=== PATIENT | male | born 1950 | race Caucasian/White ===

== ENCOUNTER → 2017-05-06 | Outpatient (CLI) | payer BC, OTHER ==
[~2017-05-06] MED LIST: ALPR-411 PO; ATOR-24 PO; CHOL20007 PO; DICL1GEL12 TOP; ESCI10TA17 PO; MAGN400T6 PO; MELO7.5T5 PO; METO25TA3 PO; PANT40TA PO; PLV75 PO; TRAM-10 PO
== END | disposition home or self-care (01) ==
LOC: C.PATHSPEC 17:10
PROVIDERS: ATTEND Urology
DX: R31.0 Gross hematuria (principal)

== ENCOUNTER → 2017-06-07 | Outpatient (CLI) | payer BC, OTHER ==
--- NOTE | 2017-06-07 10:17 | DIAGNOSTIC IMAGING REPORT ---
ULTRASOUND KIDNEYS AND BLADDER CLINICAL HISTORY: Gross hematuria. COMPARISON STUDY: No priors. TECHNIQUE: Real-time, grayscale, and color flow sonography of the kidneys and bladder is performed. Images are reviewed in the transverse and longitudinal planes. FINDINGS: Kidneys: The kidneys are normal in size and echotexture. The right kidney measures 11.6 x 5.2 x 4.9 cm and the left kidney measures 11.5 x 5.9 x 5.8 cm. There is no hydronephrosis. A 5 mm shadowing calculus is suggested in the lower pole of the left kidney. Subcentimeter parapelvic cysts are suggested in the left. There is no sonographic evidence of contour deforming renal mass lesion. No perinephric fluid is identified. Bladder: There is a questionable 8 mm nonmobile nodular focus along the posterior left wall of the bladder. Both ureteral jets were seen. Upper abdomen: Survey images of the liver show evidence of hepatic steatosis. IMPRESSION: 1. The kidneys are normal in size and without hydronephrosis. 2. Suspect a nonobstructing left renal calculus. 3. There is an 8 mm nonmobile nodular structure along the left posterior wall of the bladder. This is of indeterminant etiology and a small parenchymal lesion is not excluded. Follow-up with cystoscopy is recommended for further assessment. Electronically signed by: Jimy Steel M.D. 06/07/2017 10:16 AM Dictated Date/Time: 06/07/2017 10:12 AM
== END | disposition home or self-care (01) ==
LOC: C.ULTRBC 09:13
PROVIDERS: ATTEND Urology
DX: R31.0 Gross hematuria (principal); R93.41 Abnormal radiologic findings on diagnostic imaging of renal pelvis, ureter, or bladder

== ENCOUNTER 2017-10-01 05:27 | Inpatient (IN) | payer OTHER ==
[2017-09-09 11:44] VITALS: Ht 180.3 cm; Wt 100.9 kg
--- NOTE | 2017-09-09 12:23 | PAT Medication Instructions ---
Service Date Sep 09, 2017. Current Home Medication List Alprazolam (Xanax), 0.5 MG PO HS Atorvastatin (Lipitor), 40 MG PO HS Cholecalciferol (Vitamin D3), 4,000 INTERUNIT PO QAM Clopidogrel Bisulfate (Clopidogrel), 1 TAB PO QAM Diclofenac Sodium (Topical) (Voltaren 1% Top Gel), 1 DOSE TOP UD Escitalopram (Lexapro), 10 MG PO HS Magnesium Oxide (Mag-Ox), 400 MG PO QAM Meloxicam (Mobic), 15 MG PO QAM Metoprolol Succ (Toprol Xl) (Toprol-Xl), 12.5 MG PO QAM Pantoprazole (Protonix), 40 MG PO QAM Tramadol (Ultram), 50 MG PO UD PRN for Pain Medication Instructions For Your Scheduled Surgery - Check with surgeon for instructions: Meloxicam (Mobic), 15 MG PO QAM - Check with surgeon and vending machine operator for instructions: Clopidogrel Bisulfate (Clopidogrel), 1 TAB PO QAM - Hold the following medications 24 hours prior to surgery: Diclofenac Sodium (Topical) (Voltaren 1% Top Gel), 1 DOSE TOP UD - Hold the following medications the morning of surgery: Cholecalciferol (Vitamin D3), 4,000 INTERUNIT PO QAM Magnesium Oxide (Mag-Ox), 400 MG PO QAM - Take the following medications the morning of surgery with a sip of water: Pantoprazole (Protonix), 40 MG PO QAM Tramadol (Ultram), 50 MG PO UD PRN for Pain (okay to take up to 4 hours prior to surgery if needed) Metoprolol Succ (Toprol Xl) (Toprol-Xl), 12.5 MG PO QAM - Take the following medications as scheduled the night before surgery: Tramadol (Ultram), 50 MG PO UD PRN for Pain (if needed) Escitalopram (Lexapro), 10 MG PO HS Alprazolam (Xanax), 0.5 MG PO HS Atorvastatin (Lipitor), 40 MG PO HS If you have any questions please call us at [phone] or [phone] or [phone]
[2017-09-09 12:54] LABS: BASO % 0.2 %; BASO ABS # 0.01 K/uL (0-0.2); EOS % 3.2 %; EOS ABS # 0.17 K/uL (0-0.5); HEMATOCRIT 45.5 % (42-52); HEMOGLOBIN 16.3 g/dL (14.0-18.0); LYMPH % 23.1 %; LYMPH ABS # 1.22 K/uL (1.2-3.4); MEAN CORPUSCULAR HEMOGLOBIN 34.8 pg (25-34); MEAN CORPUSCULAR HGB CONC 35.8 g/dl (32-36); MEAN PLATELET VOLUME 11.4 fL (7.4-10.4); MONO % 12.7 %; MONO ABS # 0.67 K/uL (0.11-0.59); NEUT % 60.8 %; PLATELET COUNT 169 K/uL (130-400); RED CELL DISTRIBUTION WIDTH CV 12.1 % (11.5-14.5); RED CELL DISTRIBUTION WIDTH SD 42.6 fL (36.4-46.3); WHITE BLOOD COUNT 5.27 K/uL (4.8-10.8)
[2017-09-09 13:08] LABS: INR 1.1 (0.9-1.1); PTT PATIENT 27.2 SECONDS (21.0-31.0)
[2017-09-09 13:20] LABS: HEMOGLOBIN A1C 5.4 % (4.5-5.6)
[2017-09-09 14:31] LABS: ALBUMIN 3.7 gm/dl (3.4-5.0); CALCIUM 8.8 mg/dl (8.5-10.1); CREATININE 1.04 mg/dl (0.60-1.40); POTASSIUM 4.2 mmol/L (3.5-5.1)
--- NOTE | 2017-09-29 10:59 | History and Physical ---
History & Physical Date Sep 29, 2017. Chief Complaint right ankle pain History of Present Illness The patient is a 66 year old male with complaints of right ankle pain for multiple years and had been treated conservatively for ankle osteoarthritis. He has failed all conservative management and is now being set up for a right ankle replacement. Past Medical/Surgical History PMH: HTN, hypercholesterolemia, sleep apnea, anxiety, hx of cardiac stent in 2003/2014, hemochromatosis, BPH, Hiatal hernia, Hx of bladder CA Social Hx: Previous smoker quit in 1973. Surgical Hx: cardiac cath, bladder surgery Allergies Coded Allergies: Aspirin (Verified Allergy, Unknown, HIVES, 09/09/17) Ibuprofen (Verified Allergy, Unknown, HIVES, 09/09/17) Penicillins (Verified Allergy, Unknown, HIVES, 09/09/17) Home Medications Scheduled Alprazolam (Xanax), 0.5 MG PO HS Atorvastatin (Lipitor), 40 MG PO HS Cholecalciferol (Vitamin D3), 4,000 INTERUNIT PO QAM Clopidogrel Bisulfate (Clopidogrel), 1 TAB PO QAM Diclofenac Sodium (Topical) (Voltaren 1% Top Gel), 1 DOSE TOP UD Escitalopram (Lexapro), 10 MG PO HS Magnesium Oxide (Mag-Ox), 400 MG PO QAM Meloxicam (Mobic), 15 MG PO QAM Metoprolol Succ (Toprol Xl) (Toprol-Xl), 12.5 MG PO QAM Pantoprazole (Protonix), 40 MG PO QAM Scheduled PRN Tramadol (Ultram), 50 MG PO UD PRN for Pain Physical Examination Skin: warm/dry, no rash Eyes: normal inspection ENT: normal ENT inspection, pharynx normal Head: normocephalic, atraumatic Neck: supple, no adenopathy, trachea midline Respiratory/Chest: lungs clear, normal breath sounds, no respiratory distress Cardiovascular: regular rate, rhythm Abdomen / GI: normal bowel sounds, non tender Extremities: + pertinent finding (right ankle: antalgic right gait. + swelling of the ankle joint. Crepitation and pain with PROM. Limited ROM, particularly dorsiflexion. Decreased strength in all directions.) Neurologic/Psych: no motor/sensory deficits, alert, oriented x 3 Diagnosis Right ankle osteoarthritis Right ankle achilles contracture Plan of Treatment Recommend a right ankle STAR total ankle replacement, percutaneous tendoachilles lengthening, application platelet rich plasma. All potential risks, benefits, complications, alternatives, and rehab have been discussed and the patient wishes to proceed. He will be scheduled for 10.01.17.
[2017-10-01] VITALS (8 sets, daily range): BP systolic 103–136; BP diastolic 63–81; PULSE 56–89; TEMP 36.3–36.8; O2SAT 93–99
[~2017-10-01] VITALS: Ht 180.3 cm; Wt 100.9 kg
[2017-10-01] MEDS ORDERED: LACTATED RINGER'S 1000ML IV SCH (06:00)
[2017-10-01] MEDS ORDERED: LACTATED RINGER'S 1000ML 1,000 ML IV SCH (06:00)
[2017-10-01] MEDS ORDERED: METOCLOPRAMIDE HCL 10 MG TAB PO SCH (06:00)
[2017-10-01] MEDS ORDERED: VANCOMYCIN INJ 1,500 MG in SODIUM CHLORIDE 0.9% 500ML 500 ML IV SCH (06:00)
[2017-10-01] MEDS ORDERED: ACETAMINOPHEN 500 MG TAB PO SCH (06:00)
[2017-10-01] MEDS ORDERED: GABAPENTIN 300 MG CAP PO SCH (06:00)
[2017-10-01] MEDS ORDERED: ROPIVACAINE 5MG/ML 30 ML 150 MG, BUPIVACAINE 0.5% MPF INJ 30 ML, EpINEphrine HCL INJ 0.... INFIL SCH ×23 (06:00→09:00)
[2017-10-01] MEDS ORDERED: FAMOTIDINE 20 MG TAB PO SCH (06:00)
[2017-10-01] MEDS ORDERED: DEXAMETHASONE 4 MG TAB PO SCH (06:00)
[2017-10-01] MEDS ORDERED: CeleBREX 200 MG CAP PO SCH (06:00)
[2017-10-01] MEDS ORDERED: ROPIVACAINE 0.5% 5 MG/ML 30 ML VIAL ONE (06:22)
[2017-10-01] MEDS: TRANEXAMIC ACID INJ 1,000 MG in SYRINGE 0 ML IV SCH ×2 (06:30→07:36)
[2017-10-01] MEDS ORDERED: LIDOCAINE HCL 2% 2 ML VIAL (20MG/ML) ONE (06:51)
[2017-10-01] MEDS ORDERED: FENTANYL CITRATE INJ 50 MCG/1 ML 2 ML VIAL ONE ×2 (06:51→09:39)
[2017-10-01] MEDS ORDERED: PROPOFOL IV EMULSION 10 MG/ML 20 ML VIAL IV ONE (06:51)
[2017-10-01] MEDS ORDERED: MIDAZOLAM HCL 1 MG/ML 2ML VIAL ONE (06:51)
[2017-10-01] MEDS ORDERED: ONDANSETRON INJ 2 MG/ML 2 ML VIAL ONE ×2 (06:51→09:05)
[2017-10-01] MEDS ORDERED: DEXAMETHASONE SOD INJ 4 MG/ML VIAL ONE (06:51)
[2017-10-01] MEDS ORDERED: BACITRACIN 50000 UNIT VIAL ONE (07:08)
--- NOTE | 2017-10-01 07:48 | History & Physical Bridge Note ---
H&P Re-Evaluation Bridge Note: I have examined the patient, reviewed the History & Physical and in the interval since the performance of the History & Physical I have noted the following changes of clinical significance: No changes noted
[2017-10-01] MEDS ORDERED: EpHEDrine SULFATE 50MG/5ML SYR ONE (08:17)
[2017-10-01] MEDS ORDERED: CALCIUM CHLORIDE 10% 10 ML SYR ONE (08:47)
[2017-10-01] MEDS ORDERED: THROMBIN 5000 UNITS KIT ONE (09:04)
[2017-10-01] MEDS ORDERED: SODIUM CHLORIDE 0.9% INJ 10 ML VIAL ONE (09:07)
[2017-10-01] MEDS ORDERED: DexMEDEtomidine HCL IV 100 MCG/ML VIAL IV ONE (09:15)
[2017-10-01] MEDS ORDERED: HYDROmorphone INJ 0.5 MG/0.5 ML SYR IV PRN (09:30)
[2017-10-01] MEDS ORDERED: ATROPINE SULFATE 0.1 MG/ML 5ML SYR IV PRN (09:30)
[2017-10-01] MEDS ORDERED: PHENYLEPHRINE 100MCG/ML 5ML SYR IV PRN (09:30)
[2017-10-01] MEDS ORDERED: EpHEDrine SULFATE INJ 50 MG/ML AMP IV PRN (09:30)
[2017-10-01] MEDS ORDERED: ONDANSETRON INJ 2 MG/ML 2 ML VIAL IV PRN ×2 (09:30→11:00)
--- NOTE | 2017-10-01 10:32 | [facility] Post Operative Brief Note ---
Immediate Operative Summary Operative Date Oct 01, 2017. Pre-Operative Diagnosis Right Degenerative Joint Disease, Ankle osteoarthritis, Achilles Contracture Post-Operative Diagnosis Right Degenerative Joint Disease, Ankle osteoarthritis, Achilles Contracture Procedure(s) Performed 1. Right STAR Total Ankle Arthroplasty 2. Percutaneous Achilles Lengthening, 3. Application of Platelet-Rich Plasma Concentrate Surgeon Dr. Alarcon Desk Attendant Surgeon(s) OPHELIA Monk Estimated Blood Loss 5 ml Findings Consistent with Post-Op Diagnosis Specimens A) Right ankle- bone and tissue Drains HV x 1 Anesthesia Type General Regional Complication(s) none Disposition Disposition: Recovery Room / PACU
[2017-10-01] MEDS ORDERED: ESMOLOL HCL 10 MG/ML 10 ML VIAL ONE (10:34)
[2017-10-01] MEDS ORDERED: ZOLPIDEM TARTRATE 5 MG TAB PO PRN (11:00)
[2017-10-01] MEDS ORDERED: VANCOMYCIN CONSULT ACTIVE PRN (11:00)
[2017-10-01] MEDS: DICLOFENAC SOD 1% GEL 100 GM TUBE EXT SCH (11:00)
[2017-10-01] MEDS ORDERED: ALUMINUM/MAGNESIUM/SIMETH (MAALOX MAX) 30 ML UDC PO PRN (11:00)
[2017-10-01] MEDS ORDERED: SOD PHOSPHATE/SOD BIPHOSPHATE ENEMA 132 ML BTL PR PRN (11:00)
[2017-10-01] MEDS ORDERED: MoRPHine SULFATE 2 MG/ML CARP IV PRN (11:00)
[2017-10-01] MEDS ORDERED: BISACODYL 10 MG SUPP PR PRN (11:00)
[2017-10-01] MEDS ORDERED: MAGNESIUM HYDROXIDE SUSP 30 ML UDC PO PRN (11:00)
--- NOTE | 2017-10-01 11:03 | DIAGNOSTIC IMAGING REPORT ---
INTRAOPERATIVE RADIOGRAPHS CLINICAL HISTORY: Right ankle arthroplasty. Fluoroscopy time: 149 seconds. FINDINGS: 2 spot fluoroscopic views of the right ankle are correlated with ankle radiographs dated 02/08/2006. The patient is status post right ankle arthroplasty. The orthopedic hardware appears intact. No evidence of acute fracture is seen. Overlying soft tissue edema is noted. IMPRESSION: Intraoperative images from a right ankle arthroplasty procedure as above. Electronically signed by: Jimy Steel M.D. 10/01/2017 11:01 AM Dictated Date/Time: 10/01/2017 11:00 AM
--- NOTE | 2017-10-01 11:08 | OPERATIVE REPORT ---
DATE OF OPERATION: 10/01/2017 PREOPERATIVE DIAGNOSES: 1. Right ankle degenerative joint disease. 2. Right ankle osteoarthritis. 3. Achilles contracture. POSTOPERATIVE DIAGNOSES: Same. PROCEDURE: 1. Right press-fit STAR total ankle replacement using a size large talar component, a size extra large tibial component and a 10 mm polyethylene component. 2. Percutaneous tendon Achilles lengthening. 3. Application of platelet rich plasma concentrate. SURGEON: Dr. Alarcon. STUFFER: Coleman Capellan PA-C who was present for patient positioning, sterile prep and drape, management of retractors and instruments. He was present through the critical portions of the case including wound closure, application of sterile dressing and transport of the patient to recovery. ANESTHESIA: General with regional and local intra-articular injection. SPECIMENS: Bone and tissue. DRAINS: Hemovac x1. COMPLICATIONS: None. BLOOD LOSS: 5 mL. PERTINENT HISTORY: This is a 66-year-old gentleman who has had chronic progressive and ongoing debilitating pain and worsening deformity of the right ankle. He had attempted and failed conservative management including shoewear modification, activity modification and use of a brace, anti-inflammatories local steroid injections, physical therapy physician directed home exercises and lifestyle modification. He had failed all measures and was then scheduled for surgery as indicated. Radiographs demonstrate complete loss of joint space, marginal osteophytes, subchondral sclerosis and subchondral cysts. All potential risks, benefits, complications, alternatives, rehab, potential for incomplete relief of symptoms, need for further surgery, DVT, PE, , persistent pain, swelling, scarring, weakness, neurovascular injury, wound complications, hardware failure, nonunion, malunion and bone fracture were discussed with the patient. The patient decided to proceed with the procedure as indicated. DESCRIPTION OF PROCEDURE: The patient was taken to the operative suite after popliteal block was administered. The patient was placed supine on the operating room table. Tourniquet was applied over the right lower extremity. After the patient was anesthetized, LMA was placed. The right lower extremity was then sterilely prepped and draped in the usual sterile fashion [id number], elevated and exsanguinated with an Esmarch bandage, and tourniquet inflated to 325 mmHg. Next, an 11-blade scalpel was then used to make 3 percutaneous incisions in the posterior aspect of the Achilles and a fractional percutaneous lengthening was then achieved with the foot held in neutral dorsiflexion. Small percutaneous incisions were then closed using skin maria del rosario. A #15 blade scalpel was used to make an anterior midline ankle incision extending to the midfoot oriented toward the 2nd metatarsal. The incision was made lateral to the tibialis anterior and centered over the extensor hallucis longus tendon. The incision was deepened through subcutaneous tissue. Meticulous hemostasis was achieved with electrocautery. Full-thickness skin flaps were developed. Superficial peroneal nerve was identified, retracted, and protected. Next, the extensor retinaculum was incised along the skin incision to the lateral aspect of the tibialis anterior. Tibialis anterior was retracted medially. The extensor hallucis longus and the neurovascular bundle beneath were retracted laterally. The small crossing vessels were cauterized. The anterior capsule was then incised in its midline and then elevated medially and laterally with electrocautery. Appropriate soft tissue retractors were placed carefully to maintain essentially zero skin tension on the superficial skin. After the capsule was elevated and retracted medially and laterally to visualize the medial and lateral malleoli clearly, rongeur was used to perform synovectomy and remove any excess debris and loose bodies. Next, the wound was irrigated and suctioned. Good visualization was obtained. At this point the anterior lip of hypertrophic bone was resected from the tibia with an osteotome and mallet followed by resection of a small osteophyte medially at the medial malleolus. Next, the tibial plafond could be clearly visualized. The neck of the talus was then rongeured down to the true neck of the talus after all hypertrophic osteophytes were excised. Next, attention was directed toward the proximal tibia at which point a 15-blade scalpel incision was made anterior of the tibial tubercle the inferior aspect using the external alignment guide as a guide for pin placement which was essentially in the midline of the tibia with a slight degree of dorsiflexion. Guide was placed anteriorly using a small osteotome in the medial gutter of the ankle joint to dye reel operator helper in alignment. Next, the small 2.4 mm pin was placed adjacent to the tibial tubercle and the alignment guide was placed approximately one fingerbreadth above the soft tissue and fastened there at approximately four notches medialized proximally. Next, the T-handle guide was placed anteriorly and then this was aligned with the small osteotome and placed in the medial gutter of the ankle joint to make this parallel and then also the orientation of the second ray of the foot was used to guide as well. Next, the more proximal alignment block was pinned unicortically followed by placement of the lateral alignment guide on the tibial alignment jig and the T-handle was removed. Distal cutting block was then fastened to the distal aspect of the tibial alignment guide and then x-rays obtained in AP and lateral projections of the ankle and tibia assuring appropriate alignment of the tibial alignment guide and the tibial cutting block. After appropriate alignment was established, the distal cutting block was then pinned in place with two 2.4 mm pins, one in the proximal and then secondarily in the distal aspect of the tibial cutting guide and the tibial cutting guide was aligned at the inferior aspect at the level of the tibial plafond. Next, after the tibial cutting blocks were aligned and confirmed, the medial and lateral saw capture pins were placed followed by resection of the distal tibia with a sagittal saw. The pins were removed and the distal cutting guide was then removed followed by removal of the distal tibial cut fragment after it was morselized with a small osteotome and resected with a rongeur. A cervical lamina torque tester was placed in the ankle joint to open the ankle joint followed by resection of the posterior fragments from the distal tibia cut. Next, the talar cutting guide paddle was placed at the distal tibial cutting guide and fastened in place. The ankle was held in neutral dorsiflexion. Four pins were placed in the talar cutting block fixing the talus in appropriate alignment. Next, after the saw capture pins were placed, the sagittal saw was used to resect the superior aspect of the talus. The talar cutting block guide was then removed as well as the pins and talus. This was then followed by placement of datum guide which was initially placed as an extra small position with regard to position on the talus as well as orientation along the second ray. Central pin was placed and then the posterior capture cutting guide was attached and the anterior milling guide was also fastened with two football screws. Next, the anterior mill was used to resect the anterior aspect of the talar dome. Posterior cut was made. This jig was then removed followed by placement of the shoulder cutting guide and the reciprocating saw was just resect the shoulder portions of the talus using the laser cut line. This guide was then removed leaving the central pin followed by resection of the fragments using a small osteotome and mallet. This was then elevated and resected. Next, the window trial was firmly affixed to the superior aspect of the talus using fluoroscopic confirmation of alignment and position. Next, the central keel was drilled. The window trial was then removed following use of the central keel punch. This was also confirmed using fluoroscopic social science research assistant. The wound was copiously irrigated with pulsatile lavage with Bacitracin additive followed by suctioning of the talar component. Platelet-rich plasma was injected at this time at the undersurface of the implant as well as in the talar dome. The final talar component was impacted in place with fluoroscopic assistance. Next, a trial polyethylene 10 mm was placed in the joint and the posterior aspect of the tibia was measured both medially and laterally. Appropriate size tibial drill guide was then placed and fastened with two pins. This was confirmed with x-ray and then the barrel drills x 2 were performed making certain to aim proximally. Next, the barrel cutting jig was then used to perform the final punch medially and laterally. The trial plate was then removed after appropriate sized polyethylene was sized. Next, the joint was copiously irrigated with pulsatile lavage followed by suctioning of all surfaces. The tibia was then injected with platelet-rich plasma as well as the superior aspect of the tibial final plate implant. This was then impacted in place with the trial polyethylene liner in place to ensure adequate positioning. Next, the final impactor was used to seat the tibial base tray flush with the anterior aspect of the tibia followed by bone grafting of the anterior barrel holes with local bone graft. This was impacted in place with a mallet and bone tamp. This then followed by confirmation with C-arm and then final polyethylene was inserted without difficulty. Excellent range of motion and stability was obtained. No liftoff was noted. The platelet-rich plasma was then sprayed within the joint and all surfaces and also into the subcutaneous tissue and deep soft tissue. A 10-Slovenian single-lumen Hemovac drain was placed anterolaterally followed by closure of the ankle joint capsule with #1 Vicryl. The extensor retinaculum was closed using interrupted 2-0 Vicryl, the dermis closed buried 3-0 Vicryl, and skin was closed using 3-0 monocryl. A sterile compressive bulky Fito Maya plaster splint was applied overwrapped with an Blaise wrap. Tourniquet was released. The patient was awakened and taken to recovery in stable condition. I attest to the content of the Intraoperative Record and any orders documented therein. Any exceptions are noted below. CHANNING
[2017-10-01] MEDS ORDERED: RXC5 PO (11:18)
[2017-10-01] MEDS ORDERED: ONDA8TAB6 PO (11:18)
--- NOTE | 2017-10-01 11:19 | Discharge Instructions ---
Discharge Instructions Date of Service Oct 01, 2017. Admission Reason for Admission: Right Ankle Osteoarthritis Discharge Discharge Diagnosis / Problem: right ankle osteoarthritis Discharge Goals Goal(s): Decrease discomfort, Improve function Activity Recommendations Activity Limitations: per Instructions/Follow-up section Weightbearing Status: Right non-weightbearing . Instructions / Follow-Up Instructions / Follow-Up ACTIVITY RECOMMENDATIONS: Limitations: No weight bearing to affected limb at all times. SPECIAL CARE INSTRUCTIONS: * Some drainage onto the dressing is normal and is no cause for alarm. * Some swelling is natural especially after walking. * When resting, keep your foot elevated above the level of your heart. * Call [facility] if you notice: -Increased drainage -Fever over 101 degrees F -Severe constant pain BANDAGE: * Leave bandage/cast in place unless otherwise directed. * Keep bandage/cast dry at all times. FOLLOW UP VISIT WITH DR. HUBER If appointment is not already scheduled: Please call [facility] after you get home today to schedule a follow-up appointment for [address] Huber at . Current Hospital Diet Patient's current hospital diet: AHA Diet (Heart Healthy) Discharge Diet Recommended Diet: AHA Diet (Heart Healthy) Procedures Procedures Performed: 1. Right STAR Total Ankle Arthroplasty 2. Percutaneous Achilles Lengthening, 3. Application of Platelet-Rich Plasma Concentrate Pending Studies Studies pending at discharge: no Laboratory Results Hemoglobin A1c Test 09/09/17 11:29 Range/Units Estimated Average Glucose 108 mg/dl Hemoglobin A1c 5.4 4.5-5.6 % Medical Emergencies . Who to Call and When: Medical Emergencies: If at any time you feel your situation is an emergency, please call 911 immediately. . Non-Emergent Contact Non-Emergency issues call your: Surgeon Call Non-Emergent contact if: temperature is above 101, your pain is not controlled, your pain is worsening . "Provider Documentation" section prepared by Coleman Capellan. . VTE Core Measure Inpt VTE Proph given/why not?: Other Anticoagulation (Plavix), T.E.D. Stockings , SCD's
--- NOTE | 2017-10-01 11:55 | DIAGNOSTIC IMAGING REPORT ---
R ANKLE MIN 3 VIEWS ROUTINE CLINICAL HISTORY: Postoperative evaluation. COMPARISON: Right ankle radiographs February 08, 2006 and fluoroscopic images from earlier today. FINDINGS: Alignment of the tibiotalar arthroplasty is anatomic. Hardware is intact. Fine detail is obscured by overlying cast. Skin maria del rosario project posterior to the Achilles. Surgical drain is noted. There are no unexpected radiopaque foreign bodies. Lucencies within the distal right tibia is from previous hardware. IMPRESSION: Expected findings following right tibiotalar joint arthroplasty. Electronically signed by: Michael Chadwcik M.D. 10/01/2017 11:54 AM Dictated Date/Time: 10/01/2017 11:34 AM
--- NOTE | 2017-10-01 12:36 | Anesthesiology Progress Note ---
Anesthesia Post Op Note Date & Time Oct 01, 2017 at 12:36 Vital Signs Pain Intensity: 0 Vital Signs Past 12 Hours Date Time Temp Pulse Resp B/P (MAP) Pulse Ox O2 Delivery O2 Flow Rate FiO2 10/01/17 12:01 110/84 10/01/17 11:58 84 12 95 10/01/17 11:58 84 12 10/01/17 11:56 121/79 10/01/17 11:53 85 13 96 10/01/17 11:53 84 13 10/01/17 11:51 143/84 10/01/17 11:48 80 12 10/01/17 11:48 79 12 98 10/01/17 11:46 113/76 10/01/17 11:44 36.5 10/01/17 11:43 78 12 10/01/17 11:43 79 12 97 10/01/17 11:41 117/71 10/01/17 11:38 76 13 10/01/17 11:38 76 13 99 10/01/17 11:37 75 12 10/01/17 11:37 76 12 97 10/01/17 11:36 110/73 10/01/17 11:32 76 15 10/01/17 11:32 77 15 100 10/01/17 11:31 117/69 10/01/17 11:27 80 13 10/01/17 11:27 80 13 98 10/01/17 11:26 106/69 10/01/17 11:25 77 15 10/01/17 11:25 77 15 98 10/01/17 11:21 116/67 10/01/17 11:20 77 14 10/01/17 11:20 77 14 100 10/01/17 11:16 111/69 10/01/17 11:15 76 12 94 10/01/17 11:15 76 12 10/01/17 11:11 113/72 10/01/17 11:10 74 18 93 10/01/17 11:10 75 18 10/01/17 11:06 115/69 10/01/17 11:05 72 14 95 10/01/17 11:05 74 14 10/01/17 11:01 115/72 10/01/17 11:00 36.0 74 18 115/72 96 Nasal Cannula 10/01/17 06:04 36.7 56 18 115/81 96 Room Air Notes Mental Status: alert / awake / arousable, participated in evaluation Pt Amnestic to Procedure: Yes Nausea / Vomiting: adequately controlled Pain: adequately controlled Airway Patency, RR, SpO2: stable & adequate BP & HR: stable & adequate Hydration State: stable & adequate Anesthetic Complications: no major complications apparent
[2017-10-01] MEDS: ACETAMINOPHEN 500 MG TAB PO SCH ×2 (14:16→21:05)
[2017-10-01] MEDS: D5W AND 1/2NSS + 20MEQ KCL 1,000 ML IV SCH (14:16)
--- NOTE | 2017-10-01 15:03 | Medical Consult ---
Consultation Date of Consultation: Oct 01, 2017. Attending Physician: Easton Alarcon D.O. Reason for Consultation: Medical Management History of Present Illness 66 y/o M who was admitted earlier today s/p R total ankle and Achilles lengthening with Dr. Alarcon. He is doing well post-op. His nerve block has not worn off yet and he has no pain at this point. He is off of O2 and no SOB. No chest pain. He had lunch and no issues with PO. Pt denies fever, abd pain , n/v/c/d, LE swelling. Ortho H&P lists MARISEL as a dx. When asked about this dx or CPAP use, pt states he just assumes that he has this but has never been tested and does not have any tx plan. He states that he snores and has done so for some time. He snores so much that his no longer sleeps in the same room as he does. Past Medical/Surgical History HTN Hyperlipidemia Hx of multiple stents x3, 2004, 2015 Hemochromatosis BPH Hx of bladder ca Hiatal hernia Anxiety Social History Smoking Status: Former Smoker Alcohol Use: none Drug Use: none Allergies Coded Allergies: Aspirin (Verified Allergy, Unknown, HIVES, 10/01/17) Ibuprofen (Verified Allergy, Unknown, HIVES, 10/01/17) Penicillins (Verified Allergy, Unknown, HIVES, 10/01/17) Current Inpatient Medications Current Inpatient Medications Medications (Trade) Dose Ordered Sig/Zoraida Route Start Time Stop Time Status Last Admin Dose Admin Lactated Ringer's 1,000 ml @ 15 mls/hr Q24H IV 10/01/17 06:00 10/02/17 05:59 Vancomycin HCl 1500 mg/Sodium Chloride 530 ml @ 200 mls/hr PREOP IV 10/01/17 06:00 10/02/17 05:59 10/01/17 05:57 200 MLS/HR Lactated Ringer's 1,000 ml @ 60 mls/hr [id number] IV 10/01/17 06:00 10/01/17 22:39 10/01/17 06:13 60 MLS/HR Acetaminophen (Tylenol Tab) 1,000 mg PREOP PO 10/01/17 06:00 10/01/17 18:00 10/01/17 06:13 1,000 MG Dexamethasone (Decadron Tab) 8 mg PREOP PO 10/01/17 06:00 10/01/17 18:00 10/01/17 06:14 8 MG Famotidine (Pepcid Tab) 20 mg PREOP PO 10/01/17 06:00 10/01/17 18:00 10/01/17 06:14 20 MG Gabapentin (Neurontin Cap) 300 mg PREOP PO 10/01/17 06:00 10/01/17 18:00 10/01/17 06:13 300 MG Metoclopramide HCl (Reglan Tab) 10 mg PREOP PO 10/01/17 06:00 10/01/17 18:00 10/01/17 06:13 10 MG Ropivacaine 150 mg/Bupivacaine HCl 30 ml/ Epinephrine HCl 0.15 mg/ Dexamethasone Sodium Phosphate 4 mg/Ketamine HCl 10 mg/Clonidine 100 mcg/Sodium Chloride 92.35 ml @ 0 mls/hr 0900 INFIL 10/01/17 09:00 10/01/17 18:00 10/01/17 10:30 20 MLS/HR Alprazolam (Xanax Tab) 0.5 mg HS PO 10/01/17 21:00 10/31/17 20:59 Atorvastatin Calcium (Lipitor Tab) 40 mg HS PO 10/01/17 21:00 10/31/17 20:59 Clopidogrel Bisulfate (plAVix TAB) 75 mg QAM PO 10/02/17 09:00 11/01/17 08:59 Diclofenac Sodium (Voltaren 1% Top Gel) 1 appln DAILY EXT 10/01/17 11:00 10/31/17 10:59 Escitalopram Oxalate (Lexapro Tab) 10 mg HS PO 10/01/17 21:00 10/31/17 20:59 Magnesium Oxide (Mag-Ox Tab) 400 mg QAM PO 10/02/17 09:00 11/01/17 08:59 Metoprolol Succinate (Toprol Xl Tab) 12.5 mg QAM PO 10/02/17 09:00 11/01/17 08:59 Pantoprazole Sodium (Protonix Tab) 40 mg QAM PO 10/02/17 09:00 11/01/17 08:59 Cholecalciferol (Vitamin D Tab) 4,000 inter.unit QAM PO 10/02/17 09:00 11/01/17 08:59 Potassium Chloride/Dextrose/ Sod Cl 1,000 ml @ 100 mls/hr Q10H IV 10/01/17 13:00 10/31/17 12:59 10/01/17 14:16 100 MLS/HR Vancomycin HCl 1500 mg/Sodium Chloride 530 ml @ 200 mls/hr 1800 ONCE IV 10/01/17 18:00 10/01/17 20:38 Oxycodone HCl (Roxicodone Immediate Rel Tab) 1-2 TABS FOR PAIN 1 TABLET ... Q4H PRN PO 10/01/17 11:00 10/15/17 10:59 Morphine Sulfate (MoRPHine SULFATE INJ) 2 mg Q1HWA PRN IV 10/01/17 11:00 10/15/17 10:59 Acetaminophen (Tylenol Tab) 1,000 mg Q8H PO 10/01/17 14:00 10/31/17 13:59 10/01/17 14:16 1,000 MG Magnesium Hydroxide (Milk Of Magnesia Susp) 30 ml Q6H PRN PO 10/01/17 11:00 10/31/17 10:59 Bisacodyl (Dulcolax Supp) 10 mg DAILY PRN [place] 10/01/17 11:00 10/31/17 10:59 Sodium Biphosphate/ Sodium Phosphate (Fleet Enema) 132 ml DAILY PRN IL 10/01/17 11:00 10/31/17 10:59 Senna (Senokot Tab) 17.2 mg HS PO 10/01/17 21:00 10/31/17 20:59 Docusate Sodium (coLACE CAP) 100 mg BID PO 10/01/17 21:00 10/31/17 20:59 Diphenhydramine HCl (Benadryl Cap) 25 mg Q8H PRN PO 10/01/17 11:00 10/31/17 10:59 Al Hydrox/Mg Hydrox/Simethicone (Maalox Max Susp) 15 ml Q4H PRN PO 10/01/17 11:00 10/31/17 10:59 Zolpidem Tartrate (Ambien Tab) 5 mg HSZ PRN PO 10/01/17 11:00 10/31/17 10:59 Multivitamins (Multivitamin Tab) 1 tab QAM PO 10/02/17 09:00 11/01/17 08:59 Ondansetron HCl (Zofran Inj) 4 mg Q6H PRN IV 10/01/17 11:00 10/31/17 10:59 Review of Systems Pertinent positives and negatives reviewed in HPI--all others negative Physical Exam Date Time Temp Pulse Resp B/P (MAP) Pulse Ox O2 Delivery O2 Flow Rate FiO2 10/01/17 14:15 77 16 134/64 (87) 98 10/01/17 13:24 84 16 126/70 (88) 97 10/01/17 12:45 80 16 136/76 (96) 99 Nasal Cannula 2.0 10/01/17 12:15 36.8 81 16 113/75 (88) 99 Nasal Cannula 2.0 10/01/17 12:15 99 Nasal Cannula 2.0 10/01/17 12:01 110/84 10/01/17 11:58 84 12 95 10/01/17 11:58 84 12 10/01/17 11:56 121/79 10/01/17 11:53 85 13 96 10/01/17 11:53 84 13 10/01/17 11:51 143/84 10/01/17 11:48 80 12 10/01/17 11:48 79 12 98 10/01/17 11:46 113/76 10/01/17 11:44 36.5 10/01/17 11:43 78 12 10/01/17 11:43 79 12 97 10/01/17 11:41 117/71 10/01/17 11:38 76 13 10/01/17 11:38 76 13 99 10/01/17 11:37 75 12 10/01/17 11:37 76 12 97 10/01/17 11:36 110/73 10/01/17 11:32 76 15 10/01/17 11:32 77 15 100 10/01/17 11:31 117/69 10/01/17 11:27 80 13 10/01/17 11:27 80 13 98 10/01/17 11:26 106/69 10/01/17 11:25 77 15 10/01/17 11:25 77 15 98 10/01/17 11:21 116/67 10/01/17 11:20 77 14 10/01/17 11:20 77 14 100 10/01/17 11:16 111/69 10/01/17 11:15 76 12 94 10/01/17 11:15 76 12 10/01/17 11:11 113/72 10/01/17 11:10 74 18 93 10/01/17 11:10 75 18 10/01/17 11:06 115/69 10/01/17 11:05 72 14 95 10/01/17 11:05 74 14 10/01/17 11:01 115/72 10/01/17 11:00 36.0 74 18 115/72 96 Nasal Cannula 10/01/17 06:04 36.7 56 18 115/81 96 Room Air General Appearance: WD/WN, no apparent distress Head: normocephalic, atraumatic Eyes: normal inspection, EOMI, sclerae normal Respiratory/Chest: lungs clear, normal breath sounds, no respiratory distress Cardiovascular: regular rate, rhythm, no edema Abdomen/GI: non tender, soft Extremities/Musculoskelatal: no calf tenderness, no pedal edema Neurologic/Psych: alert, normal mood/affect, oriented x 3 Skin: normal color, warm/dry, + pertinent finding (R ankle is wrapped, clean and dry) Laboratory Results Last 24 Hours Test 10/01/17 05:45 Assessment & Plan 66 y/o M who was admitted on 10/01 s/p R total ankle and Achilles lengthening with Dr. Alarcon. R total ankle: diet and DVT proph as per Dr. Alarcon Pre-op Hb 16.3 HTN, hx of stents: continue home meds Pt should resume plavix use once cleared to do so by ortho Anxiety: prn xanax MARISEL: no formal testing or dx made, however pt snores for many years and has hx of cardiac issues and HTN that could be stemming from untx MARISEL Overnight pulse ox Pt will need formal sleep study as an outpt most likely Additional Copies To Omega Jerez M.D.
[2017-10-01] MEDS ORDERED: VANCOMYCIN INJ 1,500 MG in SODIUM CHLORIDE 0.9% 500ML 500 ML IV ONE (18:00)
[2017-10-01] MEDS ORDERED: ESCITALOPRAM OXALATE 10 MG TAB PO SCH (21:00)
[2017-10-01] MEDS ORDERED: ALPRAZOLAM 0.5 MG TAB PO SCH (21:00)
[2017-10-01] MEDS ORDERED: ATORVASTATIN 20 MG TAB PO SCH (21:00)
[2017-10-01] MEDS ORDERED: SENNA 8.6 MG TAB PO SCH (21:00)
[2017-10-01] MEDS: DOCUSATE SODIUM 100 MG CAP PO SCH (21:04)
[2017-10-02] MEDS: OXYCODONE HCL IR 5 MG TAB (IMMEDIATE RELEASE) PO PRN ×3 (00:45→11:05)
[2017-10-02] MEDS: D5W AND 1/2NSS + 20MEQ KCL 1,000 ML IV SCH ×2 (00:46→08:45)
[2017-10-02 04:00] VITALS: BP 142/82; PULSE 84; TEMP 36.7; O2SAT 98
[2017-10-02 05:42] VITALS: O2SAT 93
[2017-10-02] MEDS: ACETAMINOPHEN 500 MG TAB PO SCH (05:57)
[2017-10-02 06:09] LABS: HEMATOCRIT 40.1 % (42-52); HEMOGLOBIN 14.1 g/dL (14.0-18.0); MEAN CELL VOLUME 96.9 fL (80-100); MEAN CORPUSCULAR HEMOGLOBIN 34.1 pg (25-34); MEAN CORPUSCULAR HGB CONC 35.2 g/dl (32-36); MEAN PLATELET VOLUME 10.9 fL (7.4-10.4); PLATELET COUNT 176 K/uL (130-400); RED CELL DISTRIBUTION WIDTH CV 12.2 % (11.5-14.5); RED CELL DISTRIBUTION WIDTH SD 43.1 fL (36.4-46.3); WHITE BLOOD COUNT 14.39 K/uL (4.8-10.8)
[2017-10-02 06:50] LABS: CALCIUM 8.3 mg/dl (8.5-10.1); CREATININE 1.04 mg/dl (0.60-1.40)
[2017-10-02 07:20] VITALS: BP 114/67; PULSE 98; TEMP 36.6; O2SAT 98
[2017-10-02] MEDS: DICLOFENAC SOD 1% GEL 100 GM TUBE EXT SCH (08:44)
[2017-10-02] MEDS: DOCUSATE SODIUM 100 MG CAP PO SCH (08:45)
[2017-10-02] MEDS ORDERED: CLOPIDOGREL BISULFATE 75 MG TAB PO SCH (09:00)
[2017-10-02] MEDS ORDERED: MAGNESIUM OXIDE 400 MG TAB PO SCH (09:00)
[2017-10-02] MEDS ORDERED: CHOLECALCIFEROL 1000 INTER.UNIT TAB PO SCH (09:00)
[2017-10-02] MEDS ORDERED: PANTOprazole SOD 40 MG TAB PO SCH (09:00)
[2017-10-02] MEDS ORDERED: METOPROLOL SUCC 25MG EXT REL TAB PO SCH (09:00)
[2017-10-02] MEDS ORDERED: MULTIVITAMIN TAB PO SCH (09:00)
[2017-10-02] MEDS ORDERED: NURSING VERBAL MED ORDER ONE (10:30)
--- NOTE | 2017-10-02 11:35 | Orthopedic Progress Note ---
Orthopedic Progress Note Date of Service Oct 02, 2017. Subjective Post OP Day: 1 Reports: feeling well, pain controlled w PO medications, Denies: complaints, chest pain, SOB, nausea / vomiting, light headedness, calf pain Objective calves soft nontender, N/V intact, splint C/D/I, capillary refill less than 2 sec., dressing C/D/I, A&O x3, toes mobile, hemovac drainage (Hemovac D/C'd, ) DNVSI. Date Time Temp Pulse Resp B/P (MAP) Pulse Ox O2 Delivery O2 Flow Rate FiO2 10/02/17 07:20 36.6 98 19 114/67 (83) 98 Room Air 10/02/17 05:42 93 Room Air 10/02/17 04:00 36.7 84 18 142/82 (102) 98 Room Air 10/01/17 22:50 36.7 89 16 116/66 (83) 95 Room Air 10/01/17 20:10 Room Air 10/01/17 19:10 36.7 89 18 103/63 (76) 93 Room Air 10/01/17 15:18 36.3 82 18 111/66 (81) 95 Room Air 10/01/17 14:15 77 16 134/64 (87) 98 10/01/17 13:24 84 16 126/70 (88) 97 10/01/17 12:45 80 16 136/76 (96) 99 Nasal Cannula 2.0 10/01/17 12:15 36.8 81 16 113/75 (88) 99 Nasal Cannula 2.0 10/01/17 12:15 99 Nasal Cannula 2.0 10/01/17 12:01 110/84 10/01/17 11:58 84 12 95 10/01/17 11:58 84 12 10/01/17 11:56 121/79 10/01/17 11:53 85 13 96 10/01/17 11:53 84 13 10/01/17 11:51 143/84 10/01/17 11:48 80 12 10/01/17 11:48 79 12 98 10/01/17 11:46 113/76 10/01/17 11:44 36.5 10/01/17 11:43 78 12 10/01/17 11:43 79 12 97 10/01/17 11:41 117/71 1/26/18 11:38 76 13 10/01/17 11:38 76 13 99 10/01/17 11:37 75 12 10/01/17 11:37 76 12 97 10/01/17 11:36 110/73 10/01/17 11:32 76 15 10/01/17 11:32 77 15 100 10/01/17 11:31 117/69 Laboratory Results 24 Hours: Test 10/02/17 05:50 Hematocrit 40.1 % Hemoglobin 14.1 g/dL Assessment & Plan Assessment: S/P Right Total Ankle Replacement POD#1, Pain well controlled Plan: NWB R LE Ice and elev R LE Resume Plavix for DVT prevention D/C home today F/U clinic [address] Alarcon
[2017-10-02 12:17] VITALS: BP 114/67; PULSE 98; TEMP 36.6; O2SAT 98
--- NOTE | 2017-10-04 08:12 | Discharge Summary ---
Orthopedic Discharge Summary Admission Date/Reason Oct 01, 2017 at 07:52 Right Ankle Osteoarthritis. Discharge Date/Disposition Oct 02, 2017 Home Diagnosis Principal Diagnosis: right ankle osteoarthritis Procedure(s) Performed 1. Right press-fit STAR total ankle replacement using a size large talar component, a size extra large tibial component and a 10 mm polyethylene component. 2. Percutaneous tendon Achilles lengthening. 3. Application of platelet rich plasma concentrate Consultations Hospitalist Medication Reconciliation New Medications: Ondansetron Hcl (Zofran) 8 Mg Tab 8 MG PO Q8 PRN for Nausea, #20 TAB Oxycodone HCl (Oxycodone HCl) 5 Mg Tab 5-10 MG PO Q4H PRN for Pain, #60 TAB Continued Medications: Alprazolam (Xanax) 0.5 Mg Tab 0.5 MG PO HS, TAB Atorvastatin (Lipitor) 40 Mg Tab 40 MG PO HS, TAB Cholecalciferol (Vitamin D3) 2,000 Unit Tab 4000 INTERUNIT PO QAM for 90 Days, TAB 3 Refills Clopidogrel Bisulfate (Clopidogrel) 75 Mg Tab 1 TAB PO QAM Diclofenac Sodium (Topical) (Voltaren 1% Top Gel) 1 % Gel 1 DOSE TOP UD Escitalopram (Lexapro) 10 Mg Tab 10 MG PO HS, TAB Magnesium Oxide (Mag-Ox) 400 Mg Tab 400 MG PO QAM, TAB Metoprolol Succ (Toprol Xl) (Toprol-Xl) 25 Mg Tabcr 12.5 MG PO QAM, #30 TAB Pantoprazole (Protonix) 40 Mg Tab 40 MG PO QAM, #30 TAB Discontinued Medications: Meloxicam (Mobic) 7.5 Mg Tab 15 MG PO QAM, TAB Tramadol (Ultram) 50 Mg Tab 50 MG PO UD PRN for Pain, TAB Admission Physical Exam As per Admitting History & Physical. Hospital Course The patient was admitted on 1..18 and underwent the above noted procedure. On POD #1, his pain was controlled and he was maintaining NWB on the RLE. The hemovac drainage was ~75 cc throughout POD #1 so the hemovac was d/c'd. He was d /c'd home later that day. Discharge Instructions Please refer to the electronic Patient Visit Report (Discharge Instructions) for additional information. ACTIVITY RECOMMENDATIONS: Limitations: No weight bearing to affected limb at all times. SPECIAL CARE INSTRUCTIONS: * Some drainage onto the dressing is normal and is no cause for alarm. * Some swelling is natural especially after walking. * When resting, keep your foot elevated above the level of your heart. * Call [facility] if you notice: -Increased drainage -Fever over 101 degrees F -Severe constant pain BANDAGE: * Leave bandage/cast in place unless otherwise directed. * Keep bandage/cast dry at all times. FOLLOW UP VISIT WITH DR. HUBER If appointment is not already scheduled: Please call [facility] after you get home today to schedule a follow-up appointment for [address] Huber at .
== END 2017-10-02 13:34 | disposition home or self-care (01) | DRG 469 ==
LOC: C.ACU 05:27 → C.3E 07:52 → ENRESERV 11:50
PROVIDERS: ADMIT Orthopaedic Surgery Sports Medicine; ATTEND Orthopaedic Surgery Sports Medicine
PROC: 3E0U3GC Introduction of Other Therapeutic Substance into Joints, Percutaneous Approach (ICD-10-PCS; principal; 2017-10-01 07:30)
PROC: 0L8S3ZZ Division of Right Ankle Tendon, Percutaneous Approach (ICD-10-PCS; principal; 2017-10-01 07:30)
PROC: 0SRF0JZ Replacement of Right Ankle Joint with Synthetic Substitute, Open Approach (ICD-10-PCS; principal; 2017-10-01 07:30)
DX: M19.071 Primary osteoarthritis, right ankle and foot (principal); M24.571 Contracture, right ankle; I10 Essential (primary) hypertension; E78.00 Pure hypercholesterolemia, unspecified; R06.83 Snoring; F41.9 Anxiety disorder, unspecified; K44.9 Diaphragmatic hernia without obstruction or gangrene; E83.119 Hemochromatosis, unspecified; E66.9 Obesity, unspecified; Z68.31 Body mass index [BMI] 31.0-31.9, adult; Z95.5 Presence of coronary angioplasty implant and graft; Z85.51 Personal history of malignant neoplasm of bladder; Z87.891 Personal history of nicotine dependence; Z79.02 Long term (current) use of antithrombotics/antiplatelets; Z79.1 Long term (current) use of non-steroidal anti-inflammatories (NSAID); Z79.899 Other long term (current) drug therapy; Z88.0 Allergy status to penicillin

== ENCOUNTER → 2018-03-24 | Outpatient (CLI) | payer OTHER ==
[~2018-03-24] MED LIST changes: -DICL1GEL12 TOP; +TOLN1CRE TOP; -TRAM-10 PO
[2018-03-24 14:51] LABS: BASO % 0.4 %; BASO ABS # 0.02 K/uL (0-0.2); EOS % 2.7 %; EOS ABS # 0.14 K/uL (0-0.5); HEMATOCRIT 43.2 % (42-52); HEMOGLOBIN 15.2 g/dL (14.0-18.0); LYMPH % 22.6 %; LYMPH ABS # 1.16 K/uL (1.2-3.4); MEAN CELL VOLUME 95.6 fL (80-100); MEAN CORPUSCULAR HEMOGLOBIN 33.6 pg (25-34); MEAN CORPUSCULAR HGB CONC 35.2 g/dl (32-36); MEAN PLATELET VOLUME 11.6 fL (7.4-10.4); MONO % 8.2 %; MONO ABS # 0.42 K/uL (0.11-0.59); NEUT % 66.1 %; NEUT ABS # 3.39 K/uL (1.4-6.5); PLATELET COUNT 180 K/uL (130-400); RED CELL DISTRIBUTION WIDTH CV 12.6 % (11.5-14.5); RED CELL DISTRIBUTION WIDTH SD 43.5 fL (36.4-46.3); WHITE BLOOD COUNT 5.13 K/uL (4.8-10.8)
[2018-03-24 15:04] LABS: INR 1.1 (0.9-1.1); PTT PATIENT 26.8 SECONDS (21.0-31.0)
[2018-03-25 06:16] LABS: HEMOGLOBIN A1C 5.6 % (4.5-5.6)
== END | disposition home or self-care (01) ==
LOC: C.CPL 13:25
PROVIDERS: ATTEND Orthopaedic Surgery
DX: Z01.812 Encounter for preprocedural laboratory examination (principal)

== ENCOUNTER 2018-04-26 08:45 | Inpatient (IN) | payer OTHER ==
--- NOTE | 2018-03-24 14:20 | PAT Medication Instructions ---
Service Date Mar 24, 2018. Current Home Medication List Alprazolam (Xanax), 0.5 MG PO HS Atorvastatin (Lipitor), 40 MG PO HS Cholecalciferol (Vitamin D3), 4,000 INTERUNIT PO QAM Clopidogrel Bisulfate (Clopidogrel), 1 TAB PO QAM Escitalopram (Lexapro), 10 MG PO HS Magnesium Oxide (Mag-Ox), 400 MG PO QAM Meloxicam (Mobic), 15 MG PO QAM Metoprolol Succ (Toprol Xl) (Toprol-Xl), 12.5 MG PO QAM Pantoprazole (Protonix), 40 MG PO QAM Tolnaftate ([employer] Antifungal), 1 DOSE TOP UD PRN for PRN Medication Instructions For Your Scheduled Surgery - Per well service floorperson, only can be off of Clopidogrel (Plavix) for 5 days prior to surgery because of not being on Aspirin due to an allergy: Clopidogrel Bisulfate (Clopidogrel), 1 TAB PO QAM - Hold the following medications 2 weeks prior to surgery: Meloxicam (Mobic), 15 MG PO QAM - Hold the following medications 24 hours prior to surgery: Tolnaftate ([employer]vs Antifungal), 1 DOSE TOP UD PRN for PRN - Hold the following medications the morning of surgery: Cholecalciferol (Vitamin D3), 4,000 INTERUNIT PO QAM Magnesium Oxide (Mag-Ox), 400 MG PO QAM - Take the following medications the morning of surgery with a sip of water: Metoprolol Succ (Toprol Xl) (Toprol-Xl), 12.5 MG PO QAM Pantoprazole (Protonix), 40 MG PO QAM - Take the following medications as scheduled the night before surgery: Escitalopram (Lexapro), 10 MG PO HS Alprazolam (Xanax), 0.5 MG PO HS Atorvastatin (Lipitor), 40 MG PO HS If you have any questions please call us at [phone] or [phone] or [phone]
--- NOTE | 2018-04-07 12:08 | HISTORY & PHYSICAL EXAMINATION ---
DATE OF ADMISSION: 04/26/2018 CHIEF COMPLAINT: Bilateral knee pain. HISTORY OF PRESENT ILLNESS: Cristobal is a 67-year-old male with a multiple year history of bilateral knee pain. The patient rates his pain an 8/10. The patient has pain with his daily activities. He has limited standing and walking tolerance. Pain is worse with weightbearing. He has had knee arthroscopy, injections, bracing, and physical therapy without relief. He has failed conservative treatment and is scheduled for bilateral knee replacement. PAST MEDICAL HISTORY: Hypertension, hypercholesterolemia. He denies heart disease, diabetes, or DVT. PAST SURGICAL HISTORY: Bilateral knee arthroscopy, tonsillectomy, right shoulder biceps repair, right ankle replacement, right first finger amputation, and left Achilles repair. SOCIAL HISTORY: The patient denies alcohol or tobacco use. He quit smoking in 1974. He lives in a split level home with his and is retired. FAMILY HISTORY: Negative for DVT. MEDICATIONS: Atorvastatin 40 mg, Plavix 75 mg, metoprolol 25 mg, alprazolam 0.5 mg, meloxicam 15 mg, citalopram 10 mg, pantoprazole 40 mg, magnesium 400 mg, vitamin D3 4000 IU, and Tolnaftate 1%. ALLERGIES: ASPIRIN, IBUPROFEN, PENICILLIN. REVIEW OF SYSTEMS: See HPI. Ten other systems reviewed, all negative. PHYSICAL EXAMINATION: VITAL SIGNS: Height 5 foot 11 inches, weight 221 pounds, BMI 30. GENERAL: This is a well-developed, well-nourished male who is alert and oriented x3. Mood and affect are appropriate. HEENT: Normocephalic, atraumatic. Mucous membranes are moist and intact. NECK: Supple without lymphadenopathy. HEART: Regular rate and rhythm without murmurs, rubs, or gallops. LUNGS: Clear to auscultation without wheezes or rhonchi. ABDOMEN: Soft and nontender. Bowel sounds are equal and active. EXTREMITIES: No ecchymosis, redness, or warmth. He has bilateral varus deformities. Range of motion is from 0-120 degrees bilaterally. He has no edema, no effusion, no medial or lateral laxity. He is neurovascularly intact with +5/5 strength bilaterally. X-RAY EXAMINATION: AP and lateral views show joint space narrowing and osteophyte formation. IMPRESSION: Degenerative joint disease, bilateral knees. PLAN: The patient will be admitted for bilateral total knee arthroplasty. He will likely be on Xarelto postoperatively due to his aspirin allergy. He is requesting a stay at [facility] upon discharge.
[2018-04-26] VITALS (8 sets, daily range): BP systolic 101–152; BP diastolic 58–74; PULSE 66–94; TEMP 36.4–37; O2SAT 94–98; Ht 182.9 cm; Wt 100.5 kg
[~2018-04-26] VITALS: Ht 182.9 cm; Wt 100.5 kg
[~2018-04-26 08:45] MED LIST changes: +ACETAMINOPHEN 500 MG TAB PO SCH; +BUPIVACAINE 0.25% 30 ML VIAL ONE; +BUPIVACAINE 0.5 % 5 MG/1 ML PF 10ML VIAL ONE; +CLINDAMYCIN 600 MG/54 ML D5W 54 ML IV SCH; +CeleBREX 200 MG CAP PO SCH; +DEXAMETHASONE 4 MG TAB PO SCH; +FAMOTIDINE 20 MG TAB PO SCH; +GABAPENTIN 300 MG CAP PO SCH; +LACTATED RINGER'S 1000ML 1,000 ML IV SCH; +LACTATED RINGER'S 1000ML 500 ML IV SCH; +METOCLOPRAMIDE HCL 10 MG TAB PO SCH; +ROPIVACAINE 5MG/ML 30 ML 150 MG, BUPIVACAINE 0.5% MPF INJ 30 ML, EpINEphrine HCL INJ 0.... INFIL SCH
[2018-04-26] MEDS ORDERED: FENTANYL CITRATE INJ 50 MCG/1 ML 2 ML VIAL ONE ×4 (09:44→11:40)
[2018-04-26] MEDS ORDERED: MIDAZOLAM HCL 1 MG/ML 2ML VIAL ONE (09:44)
[2018-04-26] MEDS ORDERED: ORTHO JOINT ANESTHETIC ONE (10:11)
[2018-04-26] MEDS ORDERED: POVIDONE-IODINE OP SOLN 30 ML BTL ONE (10:11)
[2018-04-26] MEDS ORDERED: BACITRACIN 50000 UNIT VIAL ONE (10:12)
[2018-04-26] MEDS ORDERED: NURSING VERBAL MED ORDER STA (10:56)
[2018-04-26] MEDS ORDERED: GLYCOPYRROLATE INJ 0.2 MG/ML VIAL ONE (11:15)
[2018-04-26] MEDS ORDERED: DEXAMETHASONE SOD INJ 4 MG/ML VIAL ONE (11:15)
[2018-04-26] MEDS ORDERED: ONDANSETRON INJ 2 MG/ML 2 ML VIAL ONE (11:15)
[2018-04-26] MEDS ORDERED: LIDOCAINE HCL 2% 2 ML VIAL (20MG/ML) ONE (11:15)
[2018-04-26] MEDS ORDERED: NEOSTIGMINE METHYLSULFATE 5 MG/5 ML SYR ONE (11:15)
[2018-04-26] MEDS ORDERED: PROPOFOL IV EMULSION 10 MG/ML 20 ML VIAL ONE (11:15)
[2018-04-26] MEDS ORDERED: ONDANSETRON INJ 2 MG/ML 2 ML VIAL IV PRN ×2 (11:30→13:30)
[2018-04-26] MEDS ORDERED: HYDROmorphone INJ 2 MG/ML SYR/VIAL IV PRN (11:30)
[2018-04-26] MEDS ORDERED: LABETALOL HCL IV 5 MG/ML 20ML IV PRN (11:30)
[2018-04-26] MEDS ORDERED: ATROPINE SULFATE 0.1 MG/ML 5ML SYR IV PRN (11:30)
[2018-04-26] MEDS ORDERED: SODIUM CHLORIDE 0.9% INJ 10 ML VIAL ONE (12:05)
[2018-04-26] MEDS ORDERED: EpHEDrine SULFATE INJ 50 MG/ML AMP ONE ×2 (12:05→12:59)
--- NOTE | 2018-04-26 12:49 | [facility] Post Operative Brief Note ---
Immediate Operative Summary Operative Date Apr 26, 2018. Pre-Operative Diagnosis Bilateral Degenerative Joint Disease Post-Operative Diagnosis SAME PREOP Procedure(s) Performed BILATERAL TOTAL KNEE ARTHROPLASTIES utilizing [employer] journey to patient match total knee arthroplasty right size 7 femur 7 tibia 12 poly-35 oval patella left size 7 femur 7 tibia [address] Alivia [address] Jimenez Vocational Placement Specialist Surgeon(s) Rancho Moore PA-C Estimated Blood Loss 5 ml RIGHT, 5ml LEFT Findings Consistent with Post-Op Diagnosis Specimens A. Left Knee Bone and Tissue B. Right Knee Bone and Tissue Anesthesia Type General Regional Complication(s) none Disposition Disposition: Recovery Room / PACU Overlapping Procedure I was present for: the critical portions of procedure. I was immediately available: during the entire case Back up surgeon: was not required during procedure
--- NOTE | 2018-04-26 12:51 | [facility] Operative Report ---
Operative Report Operative Date Apr 26, 2018. Pre-Operative Diagnosis Bilateral Degenerative Joint Disease Post-Operative Diagnosis SAME PREOP Procedure(s) Performed BILATERAL TOTAL KNEE ARTHROPLASTIES utilizing Epizyme journey to patient match total knee arthroplasty right size 7 femur 7 tibia 12 poly-35 oval patella left size 7 femur 7 tibia 10 Alivia [address] 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 Left Knee Bone and Tissue B. Right Knee Bone and Tissue Anesthesia Type General Regional Complication(s) none Disposition Recovery Room / PACU Indications Patient presents being seen and evaluated for bilateral knee pain after failing attempts at conservative management with she is known to have severe end-stage tripoint medical general joint disease with bone to bone changes marginal osteophytes or loose bodies [id number] changes sclerosis crepitation moderate to large effusion he also has medial settlement ligamentous laxity meniscal and cartilaginous loss patient's failed attempts at conservative management presents for bilateral total knee arthroplasty Description of Procedure After proper prepping and draping of the bilateral lower extremities, an anterior midline incision was made over the region of the extensor extensor mechanism of the left knee. After meticulous hemostasis was obtained and maintained in subcutaneous tissues a medial parapatellar incision was made The patella was subluxed lateralward the medial lateral gutter were cleaned from any hypertrophic synovitis and scar tissue of the distal femoral block was placed and the distal femoral osteotomy cut was made subsequently the chamfers anterior and posterior osteotomy cuts were made utilizing the 4-in-1 block the tibia was subsequently subluxed anteriorward medial and ateral meniscal remnants were excised in their entirety remnants of the anterior and posterior cruciate ligaments were excised in their entirety excellent exposure of the proximal tibia was obtained the tibial osteotomy guide was placed on the proximal tibial osteotomy cut was made once again the knee was irrigated with copious amounts of sterile saline solution the patella was subsequently everted lateralward thickened scar tissue around the patella was removed the patella was subsequently cut utilizing a freehand technique and was drilled prepared for final preparation and placement of patella socially flexion-extension gaps were checked and the equal and symmetric trials were placed to the appropriate femoral and tibial trials with poly-spacer being placed for equal flexion and extension gaps and full range of motion including extension to 0 and flexion to 140 the trial components after having been taken to recovery range of motion was subsequently removed meticulous hemostasis was obtained and maintained subsequently a knee block injection of joint cocktail including ropivacaine 0.5 % 150 mg. Bupivacaine 0.5% epinephrine 1-200,030 mL's toradol 30 mg dexamethasone 4 mg ketamine 10 mg clonidine 100 micrograms normal saline solution 30 mg was infiltrated into the soft tissues of the posterior knee medial lateral gutters and periosteal synovium special attention was paid to protect neurovascular structures at all times subsequently trial components having been removed the knee was irrigated with sterile saline solution. debris was removed the proximal tibia was subsequently prepared and was made ready for the placement of the tibial component tibial component was also cemented and tamped into position the femoral component was subsequently placed and cemented in the position the patellar component was subsequently cemented in position because hemostasis once again obtained and maintained wound having been thoroughly irrigated with debridement and debridement lavage was performed as well as a medial parapatellar incision closed with #1 Vicryl in interrupted fashion subcutaneous was closed with #2 Vicryl skin was closed with skin clips Next, an anterior midline incision was made over the region of the extensor extensor mechanism of the right knee. After meticulous hemostasis was obtained and maintained in subcutaneous tissues a medial parapatellar incision was made The patella was subluxed lateralward the medial lateral gutter were cleaned from any hypertrophic synovitis and scar tissue of the distal femoral block was placed and the distal femoral osteotomy cut was made subsequently the chamfers anterior and posterior osteotomy cuts were made utilizing the 4-in-1 block the tibia was subsequently subluxed anteriorward medial and ateral meniscal remnants were excised in their entirety remnants of the anterior and posterior cruciate ligaments were excised in their entirety excellent exposure of the proximal tibia was obtained the tibial osteotomy guide was placed on the proximal tibial osteotomy cut was made once again the knee was irrigated with copious amounts of sterile saline solution the patella was subsequently everted lateralward thickened scar tissue around the patella was removed the patella was subsequently cut utilizing a freehand technique and was drilled prepared for final preparation and placement of patella socially flexion-extension gaps were checked and the equal and symmetric trials were placed to the appropriate femoral and tibial trials with poly-spacer being placed for equal flexion and extension gaps and full range of motion including extension to 0 and flexion to 140 the trial components after having been taken to recovery range of motion was subsequently removed meticulous hemostasis was obtained and maintained subsequently a knee block injection of joint cocktail including ropivacaine 0.5 % 150 mg. Bupivacaine 0.5% epinephrine 1-200,030 mL's toradol 30 mg dexamethasone 4 mg ketamine 10 mg clonidine 100 micrograms normal saline solution 30 mg was infiltrated into the soft tissues of the posterior knee medial lateral gutters and periosteal synovium special attention was paid to protect neurovascular structures at all times subsequently trial components having been removed the knee was irrigated with sterile saline solution. debris was removed the proximal tibia was subsequently prepared and was made ready for the placement of the tibial component tibial component was also cemented and tamped into position the femoral component was subsequently placed and cemented in the position the patellar component was subsequently cemented in position because hemostasis once again obtained and maintained wound having been thoroughly irrigated with debridement and debridement lavage was performed as well as a medial parapatellar incision closed with #1 Vicryl in interrupted fashion subcutaneous was closed with #2 Vicryl skin was closed with skin clips.. PA-C was necessary for prepping and drapping as well as wound closure of deep fascia Sub cutaneous tissue and skin and was necessary for the case. A sterile compressive dressings were placed, patient was taken to recovery in stable condition of report dictated by Tony I attest to the content of the Intraoperative Record and any orders documented therein. Any exceptions are noted below. I attest to the content of the Intraoperative Record and any orders documented therein. Any exceptions are noted below.
[2018-04-26] MEDS ORDERED: HYDROmorphone INJ 2 MG/ML SYR/VIAL ONE (12:57)
[2018-04-26] MEDS ORDERED: BISACODYL 10 MG SUPP PR PRN (13:30)
[2018-04-26] MEDS ORDERED: ALUMINUM/MAGNESIUM/SIMETH (MAALOX MAX) 30 ML UDC PO PRN (13:30)
[2018-04-26] MEDS ORDERED: MoRPHine SULFATE 2 MG/ML CARP IV PRN (13:30)
--- NOTE | 2018-04-26 14:03 | DIAGNOSTIC IMAGING REPORT ---
L KNEE 1 OR 2 VIEWS ROUTINE CLINICAL HISTORY: 67 years-old Male presenting with AP/LATERAL IN PACU LEFT KNEE. TECHNIQUE: Frontal and lateral views of the left knee were obtained. COMPARISON: 02/28/2018. FINDINGS: Postsurgical changes of total left knee arthroplasty with patellar resurfacing. No malalignment. No periprosthetic fracture. Surgical drain in place. Expected intra-articular and soft tissue emphysema. Overlying skin maria del rosario noted. IMPRESSION: Expected postsurgical appearance status post total left knee arthroplasty with patellar resurfacing. Electronically signed by: Demetrio Bridges M.D. 04/26/2018 2:01 PM Dictated Date/Time: 04/26/2018 2:00 PM
--- NOTE | 2018-04-26 14:04 | DIAGNOSTIC IMAGING REPORT ---
R KNEE 1 OR 2 VIEWS ROUTINE CLINICAL HISTORY: 67 years-old Male presenting with AP/LATERAL IN PACU RIGHT KNEE. TECHNIQUE: Frontal and lateral views the right knee were obtained. COMPARISON: 02/28/2018. FINDINGS: There has been interval total right knee arthroplasty with patellar resurfacing. No periprosthetic fracture. No significant malalignment. A surgical drain is in place. Expected intra-articular and soft tissue emphysema. Overlying surgical skin maria del rosario noted. IMPRESSION: Expected postsurgical appearance status post total right knee arthroplasty with patellar resurfacing. Electronically signed by: Demetrio Bridges M.D. 04/26/2018 2:02 PM Dictated Date/Time: 04/26/2018 2:02 PM
--- NOTE | 2018-04-26 14:29 | Anesthesiology Progress Note ---
Anesthesia Post Op Note Date & Time Apr 26, 2018 at 14:29 Vital Signs Pain Intensity: 0 Vital Signs Past 12 Hours Date Time Temp Pulse Resp B/P (MAP) Pulse Ox O2 Delivery O2 Flow Rate FiO2 04/26/18 14:15 36.7 89 19 104/75 96 Nasal Cannula 3 04/26/18 14:05 88 20 128/80 94 Nasal Cannula 3 04/26/18 13:55 89 13 124/74 97 Oxymask 10 04/26/18 13:45 87 11 126/70 96 Oxymask 10 04/26/18 13:35 86 12 141/90 93 Oxymask 15 04/26/18 13:27 36.5 86 16 136/90 95 Oxymask 15 04/26/18 09:12 36.6 66 20 152/66 96 Room Air Notes Mental Status: alert / awake / arousable, participated in evaluation Pt Amnestic to Procedure: Yes Nausea / Vomiting: adequately controlled Pain: adequately controlled Airway Patency, RR, SpO2: stable & adequate BP & HR: stable & adequate Hydration State: stable & adequate Anesthetic Complications: no major complications apparent
[2018-04-26] MEDS: TRANEXAMIC ACID INJ 1,000 MG x 2 Bags IV SCH ×2 (15:13)
--- NOTE | 2018-04-26 16:33 | Medical Consult ---
Consultation Date of Consultation: Apr 26, 2018. Attending Physician: Jonatahn Jimenez D.O. Reason for Consultation: Medical management History of Present Illness 67 y/o M who was admitted on 04/26 s/p b/l TKA with Dr. Jimenez. Pt is doing well post-op. Tolerating PO without issue. He is just starting to have pain to his knees and is requested pain meds. He has tolerated crackers and is awaiting dinner. Pt denies fever, SOB, chest pain, abd pain, n/v/c/d, LE swelling. Past Medical/Surgical History HTN Hyperlipidemia GERD Depression/anxiety Hx of [place] s/p stents x3 in 2003, 2015 Family History Father: [place] Brother: open hrt surgery Social History Smoking Status: Former Smoker (quit 1974) Alcohol Use: none Drug Use: none Allergies Coded Allergies: Aspirin (Verified Allergy, Intermediate, HIVES, 04/26/18) Ibuprofen (Verified Allergy, Intermediate, HIVES, 04/26/18) Penicillins (Verified Allergy, Intermediate, HIVES, 04/26/18) Current Inpatient Medications Current Inpatient Medications Medications (Trade) Dose Ordered Sig/Zoraida Route Start Time Stop Time Status Last Admin Dose Admin Lactated Ringer's 1,000 ml @ 15 mls/hr Q24H IV 04/26/18 06:00 04/27/18 05:59 Clindamycin Phosphate 54 ml @ 100 mls/hr PREOP IV 04/26/18 06:00 04/26/18 18:00 04/26/18 10:35 100 MLS/HR Acetaminophen (Tylenol Tab) 1,000 mg PREOP PO 04/26/18 06:00 04/26/18 18:00 04/26/18 09:29 1,000 MG Celecoxib (CeleBREX CAP) 200 mg PREOP PO 04/26/18 06:00 04/26/18 18:00 04/26/18 09:28 200 MG Dexamethasone (Decadron Tab) 8 mg PREOP PO 04/26/18 06:00 04/26/18 18:00 04/26/18 09:28 8 MG Famotidine (Pepcid Tab) 20 mg PREOP PO 04/26/18 06:00 04/26/18 18:00 04/26/18 09:28 20 MG Gabapentin (Neurontin Cap) 300 mg PREOP PO 04/26/18 06:00 04/26/18 18:00 04/26/18 09:28 300 MG Metoclopramide HCl (Reglan Tab) 10 mg PREOP PO 04/26/18 06:00 04/26/18 18:00 04/26/18 09:28 10 MG Ondansetron HCl (Zofran Inj) 4 mg ONE PRN IV 04/26/18 11:30 04/26/18 16:30 Atropine Sulfate (Atropine Sulfate 0.1mg/ml Inj) 0.5 mg Q1M PRN IV 04/26/18 11:30 04/26/18 16:30 Hydromorphone HCl (Dilaudid Inj) 0.25 mg Q5M PRN IV 04/26/18 11:30 04/26/18 16:30 Labetalol HCl (Normodyne IV) 5 mg Q5M PRN IV 04/26/18 11:30 04/26/18 16:30 Alprazolam (Xanax Tab) 0.5 mg HS PO 04/26/18 21:00 05/26/18 20:59 Atorvastatin Calcium (Lipitor Tab) 40 mg HS PO 04/26/18 21:00 05/26/18 20:59 Escitalopram Oxalate (Lexapro Tab) 10 mg HS PO 04/26/18 21:00 05/26/18 20:59 Magnesium Oxide (Mag-Ox Tab) 400 mg QAM PO 04/27/18 09:00 05/27/18 08:59 Metoprolol Succinate (Toprol Xl Tab) 12.5 mg QAM PO 04/27/18 09:00 05/27/18 08:59 Pantoprazole Sodium (Protonix Tab) 40 mg QAM PO 04/27/18 09:00 05/27/18 08:59 Cholecalciferol (Vitamin D Tab) 4,000 inter.unit QAM PO 04/27/18 09:00 05/27/18 08:59 Morphine Sulfate (MoRPHine SULFATE INJ) 2 mg Q4HWA PRN IV 04/26/18 13:30 05/10/18 13:29 Potassium Chloride/Dextrose/ Sod Cl 1,000 ml @ 100 mls/hr Q10H IV 04/26/18 15:15 04/27/18 15:14 Clindamycin Phosphate 600 mg/ Dextrose 54 ml @ 100 mls/hr Q8H IV 04/26/18 18:00 04/27/18 02:33 Oxycodone HCl (Roxicodone Immediate Rel Tab) 1 TABLET FOR PAIN RATING... Q4H PRN PO 04/26/18 13:30 05/10/18 13:29 Acetaminophen (Tylenol Tab) 1,000 mg Q8H PO 04/26/18 22:00 05/26/18 21:59 Magnesium Hydroxide (Milk Of Magnesia Susp) 30 ml Q6H PRN PO 04/26/18 13:30 05/26/18 13:29 Bisacodyl (Dulcolax Supp) 10 mg DAILY PRN IN 04/26/18 13:30 05/26/18 13:29 Senna (Senokot Tab) 17.2 mg HS PO 04/26/18 21:00 05/26/18 20:59 Docusate Sodium (coLACE CAP) 100 mg BID PO 04/26/18 21:00 05/26/18 20:59 Al Hydrox/Mg Hydrox/Simethicone (Maalox Max Susp) 15 ml Q4H PRN PO 04/26/18 13:30 05/26/18 13:29 Multivitamins (Multivitamin Tab) 1 tab QAM PO 04/27/18 09:00 05/27/18 08:59 Ondansetron HCl (Zofran Inj) 4 mg Q6H PRN IV 04/26/18 13:30 05/26/18 13:29 Ferrous Gluconate (Ferrous Gluconate Tab) 324 mg TIDM PO 04/26/18 17:45 05/26/18 17:59 Rivaroxaban (Xarelto Tab) 10 mg Q24H PO 04/27/18 09:00 05/27/18 08:59 Review of Systems Pertinent positives and negatives reviewed in HPI--all others negative Physical Exam Date Time Temp Pulse Resp B/P (MAP) Pulse Ox O2 Delivery O2 Flow Rate FiO2 04/26/18 15:50 Room Air 04/26/18 15:36 36.4 91 18 119/70 (86) 96 Nasal Cannula 2.0 04/26/18 15:08 37.0 89 18 107/59 (75) 95 2.0 04/26/18 14:35 98 Nasal Cannula 2.0 04/26/18 14:35 37.0 92 18 129/74 (92) 98 Nasal Cannula 2.0 04/26/18 14:35 Nasal Cannula 2.0 04/26/18 14:15 36.7 89 19 104/75 96 Nasal Cannula 3 04/26/18 14:05 88 20 128/80 94 Nasal Cannula 3 04/26/18 13:55 89 13 124/74 97 Oxymask 10 04/26/18 13:45 87 11 126/70 96 Oxymask 10 04/26/18 13:35 86 12 141/90 93 Oxymask 15 04/26/18 13:27 36.5 86 16 136/90 95 Oxymask 15 04/26/18 09:12 36.6 66 20 152/66 96 Room Air General Appearance: WD/WN, no apparent distress Head: normocephalic, atraumatic Eyes: normal inspection, sclerae normal Respiratory/Chest: normal breath sounds, no respiratory distress Cardiovascular: regular rate, rhythm, no edema Abdomen/GI: non tender, soft Extremities/Musculoskelatal: no calf tenderness, no pedal edema Neurologic/Psych: alert, normal mood/affect, oriented x 3 Skin: normal color, warm/dry Assessment & Plan 67 y/o M who was admitted on 04/26 s/p b/l TKA with Dr. Jimenez. B/L knee pain: s/p b/l TKA DVT proph and diet as per ortho Pre-op Hb 15.2 HTN: stable. continue home meds Hyperlipidemia: continue home meds Hx of [place], s/p stents: plavix has been on hold x5 days, resume when able to per ortho Depression/anxiety: continue home meds
[2018-04-26] MEDS: OXYCODONE HCL IR 5 MG TAB (IMMEDIATE RELEASE) PO PRN ×2 (16:50→20:54)
[2018-04-26] MEDS: FERROUS GLUCONATE 324 MG TAB PO SCH (17:31)
[2018-04-26] MEDS: CLINDAMYCIN IV 600 MG in DEXTROSE 5% 50ML 50 ML IV SCH (17:32)
[2018-04-26] MEDS: ALPRAZOLAM 0.5 MG TAB PO SCH (20:54)
[2018-04-26] MEDS: D5W AND 1/2NSS + 20MEQ KCL 1,000 ML IV SCH (20:54)
[2018-04-26] MEDS: ESCITALOPRAM OXALATE 10 MG TAB PO SCH (20:55)
[2018-04-26] MEDS: ATORVASTATIN 40 MG TAB PO SCH (20:55)
[2018-04-26] MEDS: DOCUSATE SODIUM 100 MG CAP PO SCH (20:55)
[2018-04-26] MEDS: ACETAMINOPHEN 500 MG TAB PO SCH (20:56)
[2018-04-26] MEDS: SENNA 8.6 MG TAB PO SCH (20:56)
[2018-04-26] MEDS ORDERED: NURSING VERBAL MED ORDER ONE (22:00)
[2018-04-27] VITALS (7 sets, daily range): BP systolic 101–130; BP diastolic 55–77; PULSE 84–91; TEMP 36.4–37; O2SAT 95–98
[2018-04-27] MEDS: CLINDAMYCIN IV 600 MG in DEXTROSE 5% 50ML 50 ML IV SCH (02:31)
[2018-04-27] MEDS: ACETAMINOPHEN 500 MG TAB PO SCH ×3 (05:30→21:26)
[2018-04-27 07:18] LABS: HEMATOCRIT 35.5 % (42-52); HEMOGLOBIN 12.1 g/dL (14.0-18.0); MEAN CORPUSCULAR HEMOGLOBIN 33.1 pg (25-34); MEAN CORPUSCULAR HGB CONC 34.1 g/dl (32-36); MEAN PLATELET VOLUME 11.8 fL (7.4-10.4); PLATELET COUNT 175 K/uL (130-400); RED CELL DISTRIBUTION WIDTH CV 12.4 % (11.5-14.5); RED CELL DISTRIBUTION WIDTH SD 43.9 fL (36.4-46.3); WHITE BLOOD COUNT 16.55 K/uL (4.8-10.8)
[2018-04-27] MEDS: D5W AND 1/2NSS + 20MEQ KCL 1,000 ML IV SCH (07:26)
--- NOTE | 2018-04-27 07:38 | Orthopedic Progress Note ---
Orthopedic Progress Note Date of Service Apr 27, 2018. Subjective Post OP Day: 1 Reports: feeling well, Denies: complaints Objective calves soft nontender, N/V intact, incision C/D/I, A&O x3, toes mobile, hemovac drainage (200ml left; 250ml right) Date Time Temp Pulse Resp B/P (MAP) Pulse Ox O2 Delivery O2 Flow Rate FiO2 04/27/18 07:15 36.6 85 18 103/68 (80) 96 Room Air 04/27/18 04:13 37.0 86 16 101/55 (70) 96 Room Air 04/26/18 23:35 Room Air 04/26/18 23:00 36.7 94 18 103/64 (77) 95 Room Air 04/26/18 19:16 36.5 82 18 101/58 (72) 95 Room Air 04/26/18 17:40 36.7 93 17 110/64 (79) 94 Room Air 04/26/18 16:35 36.4 83 18 108/64 (79) 96 Room Air 04/26/18 15:50 Room Air 04/26/18 15:36 36.4 91 18 119/70 (86) 96 Nasal Cannula 2.0 04/26/18 15:08 37.0 89 18 107/59 (75) 95 2.0 04/26/18 14:35 98 Nasal Cannula 2.0 04/26/18 14:35 37.0 92 18 129/74 (92) 98 Nasal Cannula 2.0 04/26/18 14:35 Nasal Cannula 2.0 04/26/18 14:15 36.7 89 19 104/75 96 Nasal Cannula 3 04/26/18 14:05 88 20 128/80 94 Nasal Cannula 3 04/26/18 13:55 89 13 124/74 97 Oxymask 10 04/26/18 13:45 87 11 126/70 96 Oxymask 10 04/26/18 13:35 86 12 141/90 93 Oxymask 15 04/26/18 13:27 36.5 86 16 136/90 95 Oxymask 15 04/26/18 09:12 36.6 66 20 152/66 96 Room Air Laboratory Results 24 Hours: Test 04/27/18 06:30 Hematocrit 35.5 % Hemoglobin 12.1 g/dL Assessment & Plan Assessment: POD 1 s/p Bilateral TKA Plan: PT/OT Planning for Rehab if approved. Inhouse Planning Pain Management: Morphine, PO Tylenol, Oxy IR DVT Prophylaxis: TEDs, SCDs, Xarelto Discharge Planning Discharge Planning: rehab hospital
[2018-04-27 07:55] LABS: CALCIUM 8.1 mg/dl (8.5-10.1); CREATININE 1.1 mg/dl (0.60-1.40); POTASSIUM 4.7 mmol/L (3.5-5.1)
[2018-04-27] MEDS: MULTIVITAMIN TAB PO SCH (08:58)
[2018-04-27] MEDS: CHOLECALCIFEROL 1000 INTER.UNIT TAB PO SCH (08:58)
[2018-04-27] MEDS: PANTOprazole SOD 40 MG TAB PO SCH (08:58)
[2018-04-27] MEDS: FERROUS GLUCONATE 324 MG TAB PO SCH ×3 (08:58→17:23)
[2018-04-27] MEDS: METOPROLOL SUCC 25MG EXT REL TAB PO SCH (08:59)
[2018-04-27] MEDS: RIVAROXABAN 10 MG TAB PO SCH (08:59)
[2018-04-27] MEDS: DOCUSATE SODIUM 100 MG CAP PO SCH ×2 (08:59→21:10)
[2018-04-27] MEDS: MAGNESIUM OXIDE 400 MG TAB PO SCH (08:59)
[2018-04-27] MEDS: OXYCODONE HCL IR 5 MG TAB (IMMEDIATE RELEASE) PO PRN ×2 (12:33→19:46)
--- NOTE | 2018-04-27 13:43 | Hospitalist Progress Note ---
Hospitalist Progress Note Date of Service Apr 27, 2018. (Carolee San ., [place]) Subjective Pt evaluation today including: conversation w/ patient, physical exam, chart review, lab review, review of inpatient medication list Mr. Xiao has some pain at his surgical site, dry mouth and some urinary hesitancy. He otherwise does not have any complaints ROS Constitutional: no chills, aches, sweats or fever Respiratory: no sob,cough, sputum, or wheezing Cardiac: no chest pain, palpitations, edema, orthopnea or lightheadedness GI: no abdominal pain, nausea, vomiting, diarrhea or constipation : no dysuria or hesitancy Extremities: see HPI Skin: no rash All other systems reviewed and negative (Carolee San CRNP) Medications Medications Administered Medications (Trade) Dose Ordered Sig/Zoraida Route Start Time Stop Time Status Last Admin Dose Admin Lactated Ringer's 500 ml @ 999 mls/hr Q31M IV 04/26/18 06:00 04/26/18 06:30 DC 04/26/18 09:29 999 MLS/HR Clindamycin Phosphate 54 ml @ 100 mls/hr PREOP IV 04/26/18 06:00 04/26/18 18:00 DC 04/26/18 10:35 100 MLS/HR Acetaminophen (Tylenol Tab) 1,000 mg PREOP PO 04/26/18 06:00 04/26/18 18:00 DC 04/26/18 09:29 1,000 MG Celecoxib (CeleBREX CAP) 200 mg PREOP PO 04/26/18 06:00 04/26/18 18:00 DC 04/26/18 09:28 200 MG Dexamethasone (Decadron Tab) 8 mg PREOP PO 04/26/18 06:00 04/26/18 18:00 DC 04/26/18 09:28 8 MG Famotidine (Pepcid Tab) 20 mg PREOP PO 04/26/18 06:00 04/26/18 18:00 DC 04/26/18 09:28 20 MG Gabapentin (Neurontin Cap) 300 mg PREOP PO 04/26/18 06:00 04/26/18 18:00 DC 04/26/18 09:28 300 MG Metoclopramide HCl (Reglan Tab) 10 mg PREOP PO 04/26/18 06:00 04/26/18 18:00 DC 04/26/18 09:28 10 MG Ropivacaine 150 mg/Bupivacaine HCl 30 ml/ Epinephrine HCl 0.15 mg/Ketorolac Tromethamine 30 mg/Dexamethasone Sodium Phosphate 4 mg/Ketamine HCl 10 mg/Clonidine 100 mcg/Sodium Chloride 93.35 ml @ 0 mls/hr TODAY@06 INFIL 04/26/18 06:00 04/26/18 06:01 DC 04/26/18 06:00 93.5 MLS/HR Povidone Iodine (Betadine Ophthalmic Prep Solution) 30 ml STK-MED ONCE .ROUTE 04/26/18 10:11 04/26/18 10:12 DC 04/26/18 10:11 30 ML Bacitracin (Bacitracin Inj) 50,000 units STK-MED ONCE .ROUTE 04/26/18 10:12 04/26/18 10:13 DC 04/26/18 10:12 50,000 UNITS Alprazolam (Xanax Tab) 0.5 mg HS PO 04/26/18 21:00 05/26/18 20:59 04/26/18 20:54 0.5 MG Atorvastatin Calcium (Lipitor Tab) 40 mg HS PO 04/26/18 21:00 05/26/18 20:59 04/26/18 20:55 40 MG Escitalopram Oxalate (Lexapro Tab) 10 mg HS PO 04/26/18 21:00 05/26/18 20:59 04/26/18 20:55 10 MG Magnesium Oxide (Mag-Ox Tab) 400 mg QAM PO 04/27/18 09:00 05/27/18 08:59 04/27/18 08:59 400 MG Metoprolol Succinate (Toprol Xl Tab) 12.5 mg QAM PO 04/27/18 09:00 05/27/18 08:59 04/27/18 08:59 12.5 MG Pantoprazole Sodium (Protonix Tab) 40 mg QAM PO 04/27/18 09:00 05/27/18 08:59 04/27/18 08:58 40 MG Cholecalciferol (Vitamin D Tab) 4,000 inter.unit QAM PO 04/27/18 09:00 05/27/18 08:59 04/27/18 08:58 4,000 INTER.UNIT Potassium Chloride/Dextrose/ Sod Cl 1,000 ml @ 100 mls/hr Q10H IV 04/26/18 15:15 04/27/18 15:14 04/27/18 07:26 100 MLS/HR Clindamycin Phosphate 600 mg/ Dextrose 54 ml @ 100 mls/hr Q8H IV 04/26/18 18:00 04/27/18 02:33 DC 04/27/18 02:31 100 MLS/HR Oxycodone HCl (Roxicodone Immediate Rel Tab) 1 TABLET FOR PAIN RATING... Q4H PRN PO 04/26/18 13:30 05/10/18 13:29 04/27/18 12:33 5 MG Acetaminophen (Tylenol Tab) 1,000 mg Q8H PO 04/26/18 22:00 05/26/18 21:59 04/27/18 05:30 1,000 MG Senna (Senokot Tab) 17.2 mg HS PO 04/26/18 21:00 05/26/18 20:59 04/26/18 20:56 17.2 MG Docusate Sodium (coLACE CAP) 100 mg BID PO 04/26/18 21:00 05/26/18 20:59 04/27/18 08:59 100 MG Multivitamins (Multivitamin Tab) 1 tab QAM PO 04/27/18 09:00 05/27/18 08:59 04/27/18 08:58 1 TAB Ferrous Gluconate (Ferrous Gluconate Tab) 324 mg TIDM PO 04/26/18 17:45 05/26/18 17:59 04/27/18 08:58 324 MG Rivaroxaban (Xarelto Tab) 10 mg Q24H PO 04/27/18 09:00 05/27/18 08:59 04/27/18 08:59 10 MG (Carolee San CRNP) Objective Vital Signs Date Time Temp Pulse Resp B/P (MAP) Pulse Ox O2 Delivery O2 Flow Rate FiO2 04/27/18 11:06 36.7 91 18 116/72 (87) 97 Room Air 04/27/18 10:48 89 97 04/27/18 07:20 Room Air 04/27/18 07:15 36.6 85 18 103/68 (80) 96 Room Air 04/27/18 04:13 37.0 86 16 101/55 (70) 96 Room Air 04/26/18 23:35 Room Air 04/26/18 23:00 36.7 94 18 103/64 (77) 95 Room Air 04/26/18 19:16 36.5 82 18 101/58 (72) 95 Room Air 04/26/18 17:40 36.7 93 17 110/64 (79) 94 Room Air 04/26/18 16:35 36.4 83 18 108/64 (79) 96 Room Air 04/26/18 15:50 Room Air 04/26/18 15:36 36.4 91 18 119/70 (86) 96 Nasal Cannula 2.0 04/26/18 15:08 37.0 89 18 107/59 (75) 95 2.0 04/26/18 14:35 98 Nasal Cannula 2.0 04/26/18 14:35 37.0 92 18 129/74 (92) 98 Nasal Cannula 2.0 04/26/18 14:35 Nasal Cannula 2.0 04/26/18 14:15 36.7 89 19 104/75 96 Nasal Cannula 3 04/26/18 14:05 88 20 128/80 94 Nasal Cannula 3 04/26/18 13:55 89 13 124/74 97 Oxymask 10 04/26/18 13:45 87 11 126/70 96 Oxymask 10 04/26/18 13:35 86 12 141/90 93 Oxymask 15 (Carolee San CRNP) Physical Exam Notes: General: no distress Eyes: normal inspection, PERLL Respiratory: chest non tender, clear to auscultation, normal breath sounds, no respiratory distress, no accessory muscle use Cardiac: regular rate and rhythm, no rub or gallop, no murmur, no edema, no jvd GI/: active bowel sounds, no abd pain or tenderness, soft, non distended Extremities: normal range of motion, normal strength, non tender Neuro/Psych: alert and oriented x 3, normal mood and affect Skin: normal color, dry, dressings dry and intact, drains draining blood (Carolee San CRNP) Laboratory Results Last 24 Hours Test 04/27/18 06:30 White Blood Count 16.55 K/uL Red Blood Count 3.66 M/uL Hemoglobin 12.1 g/dL Hematocrit 35.5 % Mean Corpuscular Volume 97.0 fL Mean Corpuscular Hemoglobin 33.1 pg Mean Corpuscular Hemoglobin Concent 34.1 g/dl RDW Standard Deviation 43.9 fL RDW Coefficient of Variation 12.4 % Platelet Count 175 K/uL Mean Platelet Volume 11.8 fL Sodium Level 137 mmol/L Potassium Level 4.7 mmol/L Chloride Level 102 mmol/L Carbon Dioxide Level 25 mmol/L Anion Gap 10.0 mmol/L Blood Urea Nitrogen 18 mg/dl Creatinine 1.10 mg/dl Est Creatinine Clear Calc Drug Dose 78.9 ml/min Estimated GFR () 79.5 Estimated GFR (Non- 68.6 BUN/Creatinine Ratio 16.7 Random Glucose 174 mg/dl Calcium Level 8.1 mg/dl Hepatitis C Antibody Screen NEG (Carolee San .[place]) Assessment and Plan 67 y/o M who was admitted on 04/26 s/p b/l TKA with Dr. Jimenez. B/L knee pain: s/p b/l TKA 04/26 DVT proph and diet as per ortho Pre-op Hb 15.2 HTN: stable. continue metoprolol Hyperlipidemia: continue statin Hx of PA, s/p stents: plavix has been on hold x5 days, resume when able to per ortho Depression/anxiety: continue home lexapro Medicine will sign off for now, please let us know if we can be of assistance in the future. (Carolee San .[place]) [employer] SALES REPRESENTATIVE Physician Supervision Note: I discussed with Carolee San [employer] SALES REPRESENTATIVE and agree with findings and plan as documented in the note. Any exceptions or clarifications are listed here: None Documented By: Jonathan Cunha (Jonathan Cunha M.D.)
[2018-04-27] MEDS: ALPRAZOLAM 0.5 MG TAB PO SCH (21:09)
[2018-04-27] MEDS: SENNA 8.6 MG TAB PO SCH (21:24)
[2018-04-27] MEDS: ESCITALOPRAM OXALATE 10 MG TAB PO SCH (21:25)
[2018-04-27] MEDS: ATORVASTATIN 40 MG TAB PO SCH (21:25)
[2018-04-28] MEDS: OXYCODONE HCL IR 5 MG TAB (IMMEDIATE RELEASE) PO PRN ×4 (03:13→23:17)
[2018-04-28] MEDS: ACETAMINOPHEN 500 MG TAB PO SCH ×3 (05:39→21:03)
[2018-04-28 06:23] VITALS: BP 116/75; PULSE 93; TEMP 36.9; O2SAT 96
[2018-04-28] MEDS: MAGNESIUM HYDROXIDE SUSP 30 ML UDC PO PRN (06:37)
[2018-04-28] MEDS: MAGNESIUM OXIDE 400 MG TAB PO SCH (07:23)
[2018-04-28] MEDS: FERROUS GLUCONATE 324 MG TAB PO SCH ×3 (07:23→17:26)
[2018-04-28] MEDS: PANTOprazole SOD 40 MG TAB PO SCH (07:23)
[2018-04-28] MEDS: CHOLECALCIFEROL 1000 INTER.UNIT TAB PO SCH (07:24)
[2018-04-28] MEDS: MULTIVITAMIN TAB PO SCH (07:24)
[2018-04-28] MEDS: RIVAROXABAN 10 MG TAB PO SCH (07:24)
[2018-04-28] MEDS: METOPROLOL SUCC 25MG EXT REL TAB PO SCH (07:24)
--- NOTE | 2018-04-28 07:40 | Orthopedic Progress Note ---
Orthopedic Progress Note Date of Service Apr 28, 2018. Subjective Post OP Day: 2 Reports: feeling well, pain controlled w PO medications, Denies: complaints, chest pain, SOB, light headedness, calf pain Additional Notes: did have nausea this am while getting up to bathroom, seems improved since returning to bed Objective calves soft nontender, N/V intact, capillary refill less than 2 sec., dressing C /D/I (silverlon intact bilateral), A&O x3, toes mobile Date Time Temp Pulse Resp B/P (MAP) Pulse Ox O2 Delivery O2 Flow Rate FiO2 04/28/18 06:23 36.9 93 16 116/75 (89) 96 Room Air 04/27/18 23:52 36.8 84 20 130/77 (94) 95 04/27/18 23:15 Room Air 04/27/18 19:50 36.9 84 20 113/68 (83) 98 Room Air 04/27/18 16:24 Room Air 04/27/18 15:37 36.4 85 20 108/71 (83) 98 Room Air 04/27/18 11:06 36.7 91 18 116/72 (87) 97 Room Air 04/27/18 10:48 89 97 Assessment & Plan Assessment: POD 2 s/p Bilateral TKA Plan: PT/OT Planning for Rehab if approved. awaiting approval to [facility] Inhouse Planning Pain Management: Morphine, PO Tylenol, Oxy IR DVT Prophylaxis: TEDs, SCDs, Xarelto Discharge Planning Discharge Planning: rehab hospital
[2018-04-28] MEDS ORDERED: CLC100 PO (07:44)
[2018-04-28] MEDS ORDERED: ACET-24 PO (07:44)
[2018-04-28] MEDS ORDERED: XRL10 PO (07:44)
[2018-04-28] MEDS ORDERED: RXC5 PO (07:44)
[2018-04-28] MEDS ORDERED: ONDA-170 PO (07:44)
--- NOTE | 2018-04-28 07:45 | Discharge Instructions ---
Discharge Instructions Date of Service Apr 28, 2018. Admission Reason for Admission: Bilateral Knee Osteoarthritis Discharge Discharge Diagnosis / Problem: bilateral total knee replacements Discharge Goals Goal(s): Decrease discomfort, Improve function, Increase independence Activity Recommendations Activity Level: Up Ad Priscilla Therapies: Physical Therapy Weightbearing Status: Left weightbearing (as tolerated), Right weightbearing ( as tolerated) . Additional Information Patient informed of condition: Yes Advance Directives: No DNR: No Level of Care: Acute Rehab Communicable Disease: No Prognosis: Stable Instructions / Follow-Up Instructions / Follow-Up ACTIVITY RECOMMENDATIONS: SELF CARE INSTRUCTIONS AFTER TOTAL KNEE REPLACEMENT A. You may need to continue a physical therapy program after discharge from the hospital. There are several options available to you. Your doctor will assist you in selecting the best one for you. 1. An out-patient facility 2 to 3 times a week for therapy or home therapy. 2. Continue working on all exercises taught to you in the hospital. Your goals should be to increase bending of your knee to 90 degrees and beyond and to fully straighten your knee. B. You may progress at your own pace from walking with a walker or crutches to a cane; then to no assistive devices. C. Make walking a part of your daily routine. Be up as much as comfortable with rest periods throughout the day. Rest with leg elevation is very important. Use the ice wrap frequently for the first 3-4 weeks. D. There are no restrictions on activities. You may ride in a car, shop, participate in pack puller and all social activities. E. Wear the long elastic stockings (ZURI hose) 20 hours a day for 2 weeks after surgery. They can be removed several times a day for laundering and for a bath. F. You may shower, no tub baths until cleared by your doctor. SPECIAL CARE INSTRUCTIONS: VERY IMPORTANT TO READ AND REVIEW A. There are a few signs you need to watch for after you are home. Call [facility] if you notice any of the followin. Increased severe knee pain. Some pain is expected especially when you exercise. 2. Increased swelling in your leg or knee; pain or swelling of the calf muscle in either lower leg. 3. Any fluid drainage from the incision. 4. Shortness of breath or chest pain. B. Please call [facility] at if you have any concerns or questions about your operation or recovery. The doctor or his nurse will return your call promptly. C. You must take antibiotics before dental work, bladder, bowel or other surgery. Your doctor will provide you with a permanent care to carry describing this precaution. IMPORTANT: * REMEMBER TO TAKE ASPIRIN, 81 MG, TWICE DAILY FOR 4 WEEKS UNLESS OTHERWISE DIRECTED. THIS IS YOUR BLOOD THINNER. * HIGH RISK PATIENTS MAY BE PRESCRIBED A STRONGER BLOOD THINNER. THIS WILL BE PROVIDED AT DISCHARGE. * CALL IF INCREASED PAIN, REDNESS, DRAINAGE OR FEVER GREATER THAT 101. * WEAR ZURI HOSE 20 HOURS PER DAY FOR 2 WEEKS. * YOU MAY HAVE A LARGE BAND-AID LIKE DRESSING (SILVERON). THIS WILL REMAIN ON YOUR INCISION FOR 7 DAYS, THEN CAN BE REMOVED. IF INCISION IS LEAKING THROUGH DRESSING, CALL THE OFFICE . FOLLOW UP VISIT: If appointment is not already scheduled: Please call [facility] to make a follow-up appointment for 2 weeks after your surgery at . Current Hospital Diet Patient's current hospital diet: AHA Diet (Heart Healthy) Discharge Diet Recommended Diet: AHA Diet (Heart Healthy) Procedures Procedures Performed: BILATERAL TOTAL KNEE ARTHROPLASTIES utilizing Drippler journey to patient match total knee arthroplasty right size 7 femur 7 tibia 12 poly-35 oval patella left size 7 femur 7 tibia 10 Alivia 35 oval patella Pending Studies Studies pending at discharge: no Physician Orders On Transfer Dressing Changes: Silverlon- This is a large adhesive bandage that contains silver ions. This helps your incision heal by fighting off bacteria and protecting it from the outside environment. You are permitted to shower with this dressing. This will remain on your incision for 7 days and then should be removed. Some visible blood or drainage through the dressing window is normal. If there is significant drainage or leaking noted before the 7 days notify your doctor's office immediately. Once removed, keep incision clean and dry. If there is any drainage or redness noted, please call your surgeon. Laboratory Results Hemoglobin A1c Test 03/24/18 14:26 Range/Units Estimated Average Glucose 114 mg/dl Hemoglobin A1c 5.6 4.5-5.6 % Medical Emergencies . Who to Call and When: Medical Emergencies: If at any time you feel your situation is an emergency, please call 911 immediately. . Non-Emergent Contact Non-Emergency issues call your: Primary Care Provider, Surgeon . . "Provider Documentation" section prepared by Cristo Fuentes. . Core Measure Problem Core Measures: None [place] Drug Monitoring Program Search Results: patient reviewed within database, no issues identified
[2018-04-28] MEDS: DOCUSATE SODIUM 100 MG CAP PO SCH ×2 (09:48→21:01)
[2018-04-28 11:00] VITALS: BP_SYST 116; BP_SYST 139; BP_DIAS 75; BP_DIAS 78; PULSE 93; PULSE 95; TEMP 36.8; TEMP 36.9; O2SAT 100; O2SAT 96
[2018-04-28 15:26] VITALS: BP 132/77; PULSE 88; TEMP 36.9; O2SAT 97
[2018-04-28] MEDS: ALPRAZOLAM 0.5 MG TAB PO SCH (21:01)
[2018-04-28] MEDS: ATORVASTATIN 40 MG TAB PO SCH (21:01)
[2018-04-28] MEDS: ESCITALOPRAM OXALATE 10 MG TAB PO SCH (21:02)
[2018-04-28] MEDS: SENNA 8.6 MG TAB PO SCH (21:03)
[2018-04-28 23:20] VITALS: BP 126/78; PULSE 95; TEMP 37; O2SAT 96
[2018-04-29] MEDS: ACETAMINOPHEN 500 MG TAB PO SCH ×2 (06:12→13:53)
[2018-04-29 07:06] VITALS: BP 115/72; PULSE 84; TEMP 36.9; O2SAT 95
[2018-04-29] MEDS: DOCUSATE SODIUM 100 MG CAP PO SCH (08:19)
[2018-04-29] MEDS: MAGNESIUM OXIDE 400 MG TAB PO SCH (08:20)
[2018-04-29 08:21] VITALS: BP 109/68; PULSE 98
[2018-04-29] MEDS: MULTIVITAMIN TAB PO SCH (08:27)
[2018-04-29] MEDS: CHOLECALCIFEROL 1000 INTER.UNIT TAB PO SCH (08:27)
[2018-04-29] MEDS: PANTOprazole SOD 40 MG TAB PO SCH (08:27)
[2018-04-29] MEDS: RIVAROXABAN 10 MG TAB PO SCH (08:28)
[2018-04-29] MEDS: METOPROLOL SUCC 25MG EXT REL TAB PO SCH (08:28)
[2018-04-29] MEDS: FERROUS GLUCONATE 324 MG TAB PO SCH ×2 (08:30→12:30)
[2018-04-29] MEDS: MAGNESIUM HYDROXIDE SUSP 30 ML UDC PO PRN (08:33)
[2018-04-29] MEDS: OXYCODONE HCL IR 5 MG TAB (IMMEDIATE RELEASE) PO PRN ×2 (08:59→15:32)
--- NOTE | 2018-04-29 09:00 | Orthopedic Progress Note ---
Orthopedic Progress Note Date of Service Apr 29, 2018. Subjective Post OP Day: 3 Reports: feeling well, Denies: complaints Additional Notes: Eager to go to rehab today. "I don't care which place it is, I just want to go. " Objective calves soft nontender, N/V intact, A&O x3, toes mobile Bilateral Silverlon's intact. Appears he had a few small skin blisters laterally on the right knee not related to the Silverlons Date Time Temp Pulse Resp B/P (MAP) Pulse Ox O2 Delivery O2 Flow Rate FiO2 04/29/18 08:21 98 109/68 (82) 04/29/18 07:06 36.9 84 17 115/72 (86) 95 04/28/18 23:20 37.0 95 16 126/78 (94) 96 Room Air 04/28/18 23:15 Room Air 04/28/18 15:30 Room Air 04/28/18 15:26 36.9 88 16 132/77 (95) 97 Room Air 04/28/18 11:00 36.9 93 16 96 Room Air Assessment & Plan Assessment: POD 3 s/p Bilateral TKA Plan: PT/OT Planning for Rehab if approved. awaiting approval to N. Bed available at [facility] today if N not approved. Inhouse Planning Pain Management: Morphine, PO Tylenol, Oxy IR DVT Prophylaxis: TEDs, SCDs, Xarelto Discharge Planning Discharge Planning: rehab hospital
[2018-04-29] MEDS ORDERED: ALPR-411 PO (15:38)
[2018-04-29 15:46] VITALS: BP 139/78; PULSE 95; TEMP 36.8; O2SAT 100
== END 2018-04-29 16:00 | DRG 462 ==
LOC: C.ACU 08:45 → C.3E 09:48 → ENRESERV 14:01
PROVIDERS: ADMIT Orthopaedic Surgery; ATTEND Orthopaedic Surgery
PROC: 0SRD0J9 Replacement of Left Knee Joint with Synthetic Substitute, Cemented, Open Approach (ICD-10-PCS; principal; 2018-04-26 11:00)
PROC: 0SRC0J9 Replacement of Right Knee Joint with Synthetic Substitute, Cemented, Open Approach (ICD-10-PCS; principal; 2018-04-26 11:00)
DX: M17.0 Bilateral primary osteoarthritis of knee (principal); I10 Essential (primary) hypertension; E78.5 Hyperlipidemia, unspecified; I25.2 Old myocardial infarction; F32.9 Major depressive disorder, single episode, unspecified; Z95.5 Presence of coronary angioplasty implant and graft

== ENCOUNTER 2024-10-07 22:11 | Observation (INO) ==
[2024-10-07] MEDS: ONDANSETRON INJ 2 MG/ML 2 ML VIAL IV STA (22:46)
[2024-10-07] MEDS: FAMOTIDINE 20MG IV PUSH 20 MG/5 ML SYR IV STA (22:46)
[2024-10-07 23:06] LABS: Basophils # (auto) 0.02 K/uL (0.00-0.20); Basophils % (auto) 0.4 %; Eosinophils # (auto) 0.18 K/uL (0.00-0.50); Eosinophils % (auto) 3.7 %; Hematocrit (blood only) 43.6 % (42.0-52.0); Hemoglobin 15.2 g/dl (14.0-18.0); Immature Granulocytes # (auto) 0.01 K/uL (0.01-0.20); Immature Granulocytes % (auto) 0.2 %; Lymphocytes % (auto) 6.1 %; Mean Corpuscular Hemoglobin 33.3 pg (25.0-34.0); Mean Corpuscular Hgb Conc 34.9 g/dL (32.0-36.0); Mean Corpuscular Volume 95.6 fL (80.0-100.0); Mean Platelet Volume 11.7 fL (9.4-12.4); Monocytes # (auto) 0.71 K/uL (0.11-0.59); Monocytes % (auto) 14.4 %; Neutrophils % (auto) 75.2 %; Platelet Count 167 K/uL (130-400); RDW Coefficient of Variation 12.3 % (11.5-14.5); RDW Standard Deviation 42.8 fL (36.4-46.3); Red Blood Count 4.56 M/uL (4.70-6.10); White Blood Count 4.92 K/ul (4.8-10.8)
--- NOTE | 2024-10-07 23:06 | Emergency Department Note ---
History of Present Illness General Chief complaint: Abdominal Pain Stated complaint: ABD PAIN, NAUSEA, DIARRHEA, Time Seen by Provider: 10/07/24 22:23 History of Present Illness Maximum Pain Intensity: 6 This 73-year-old male with prior stents presents ER complaint of chest pain, mid abdominal pain and testicular pain for the past week or so. Patient went to [place] last week with unclear etiology of symptoms. Patient denies fever, chills, cough, congestion, vomiting, diarrhea. Home Medications Medication Instructions Recorded Confirmed Type magnesium 200 mg tablet 400 mg PO QAM 07/05/18 10/08/24 History multivitamin 1 tab PO QAM 07/05/18 10/08/24 History pantoprazole 40 mg tablet,delayed 40 mg PO QAM 07/05/18 10/08/24 History release citalopram 20 mg tablet 20 mg PO QAM 03/26/20 10/08/24 History clopidogrel 75 mg tablet 75 mg PO QAM #90 tabs 07/22/23 10/08/24 Rx atorvastatin 80 mg tablet 80 mg PO HS #90 tabs 11/11/23 10/08/24 Rx metoprolol succinate 25 mg 12.5 mg (1/2 x 25 mg) PO QAM #45 07/05/24 10/08/24 Rx tablet,extended release 24 hr tabs famotidine 20 mg tablet (Pepcid) 20 mg PO BID #180 tabs 09/28/24 10/08/24 Rx nitroglycerin 0.4 mg sublingual 0.4 mg sublingual Q5M PRN chest 10/02/24 10/08/24 Rx tablet (Nitrostat) pain #25 tabs sulfamethoxazole 800 1 tab PO BID 7 days #14 tabs 10/03/24 10/08/24 Rx mg-trimethoprim 160 mg tablet (Bactrim DS) cholecalciferol (vitamin D3) 50 100 mcg PO DAILY 10/08/24 10/08/24 History mcg (2,000 unit) tablet (Vitamin D3) Allergies Allergy/AdvReac Type Severity Reaction Status Date / Time aspirin Allergy Intermediate Hives Verified 10/02/24 11:02 ibuprofen Allergy Intermediate Hives Verified 10/02/24 11:02 Penicillins Allergy Intermediate Hives Verified 10/02/24 11:02 oxycodone AdvReac Mild Dyspepsia Verified 10/02/24 11:02 Past Med/Surg History Problem List (Updated 10/08/24 @ 02:17 by Suzi Angel PA-C) Abdominal pain (Acute) Chest pain (Acute) Exertional angina Cough Presence of drug-eluting stent in right coronary artery Hereditary hemochromatosis Hypertension CAD (coronary artery disease) 2004- stent x2 2016- DESx1 to RCA GERD (gastroesophageal reflux disease) Controlled Hearing deficit Hyperlipidemia Anxiety Depression Benign prostatic hyperplasia (BPH) with straining on urination Medical History History of COVID-19 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 Arthritis History of kidney stones Left rotator cuff tear Mitral regurgitation BPH (benign prostatic hyperplasia) Osteoarthritis Hiatal hernia Deep vein thrombosis Pulmonary embolism Surgical History History of amputation of right index finger S/P left rotator cuff repair History of cystoscopy History of lithotripsy History of cardiac cath H/O transurethral resection of prostate History of surgery History of Achilles tendon repair History of arthroscopy History of ankle joint replacement History of total knee replacement History of esophagogastroduodenoscopy (EGD) History of colonoscopy History of tonsillectomy History of eye surgery Family History Mother Family history of diabetes mellitus Brother Family history of diabetes mellitus Family/Other Cardiac disorder Hypertension Father Myocardial infarction Other No family history of adverse response to anesthesia Denies family history of Ovarian cancer Prostate cancer Breast cancer Colorectal cancer Social History Smoking Status: Never smoker Tobacco Type: Cigarettes Age Started Using Tobacco: 13; Age Quit Using Tobacco: 23; packs per day: 0.25; Second Hand Exposure: No; Do You Dip or Chew Tobacco: No; Hx Alcohol Use: No Hx Substance Use: No Preferred Language: Slovak Communication Ability: Effective Visual Impairment: No Limitations Slitter And Rewinder Required: No Beliefs That Will Affect Care: None marital status: Current Living Situation: Spouse current occupational status: retired Feels Safe at Home: Yes Diet: regular Diet Comment: regular caffeine: Yes during the past year weight has: remained stable Dental Care, Regularly: Yes Physical Activity Frequency: Daily Seatbelt Use: always Sunscreen Use: No Assistive Devices: Glasses and Hearing Aid - Bilateral Review of Systems A total of 10 systems reviewed and were otherwise negative Physical Exam Vital Signs Vital Signs - 24 hr 10/07/24 22:15 10/07/24 22:29 10/07/24 23:00 Temperature 36.6 C Temperature Source Temporal Artery Scan Pulse Rate 107 H 94 H 90 Respiratory Rate 18 18 Respiratory Effort / Characteristics Non-Labored Spontaneous Respiratory Depth Normal Respiratory Pattern Regular Blood Pressure 126/74 108/72 Blood Pressure Mean 91 84 Blood Pressure Position Sitting Pulse Oximetry 94 96 Oxygen Delivery Method Room Air Sepsis Recent Fever Within 48 Hours Yes Sepsis New/Unexplained Change in Mental Status N/A Sepsis Action Taken by Nursing No Action Required 10/08/24 00:00 10/08/24 01:33 Temperature Temperature Source Pulse Rate 88 78 Respiratory Rate 20 20 Respiratory Effort / Characteristics Respiratory Depth Respiratory Pattern Blood Pressure 114/94 120/77 Blood Pressure Mean 100 91 Blood Pressure Position Pulse Oximetry 95 95 Oxygen Delivery Method Sepsis Recent Fever Within 48 Hours Sepsis New/Unexplained Change in Mental Status Sepsis Action Taken by Nursing VITALS: Vitals are noted on the nurse's note and reviewed by myself. Vital signs stable. GENERAL: Pleasant patient with present, in no acute distress, nondiaphoretic, well-developed well-nourished. SKIN: The skin was without rashes, erythema, edema, or bruising. There is no tenting of the skin. Capillary reflex less than 2 seconds. HEAD: Normocephalic atraumatic. EARS: External auditory canals clear EYES: Pupils equal round and reactive to light and accommodation. Conjunctivae without injection, sclerae without icterus. Extraocular movements intact. NOSE: Patent, no discharge. MOUTH: Mucous membranes moist. Pharynx without erythema or exudate. Uvula midline. Airway patent. Tongue does not deviate. NECK: Supple without nuchal rigidity. No lymphadenopathy. No thyromegaly. Cervical spine is nontender. No JVD. HEART: Regular rate and rhythm LUNGS: Clear to auscultation bilaterally without wheezes, rales or rhonchi. No retractions or accessory muscle use. ABDOMEN: Positive bowel sounds x 4. Normal tympanic percussion. Soft, tender to palpation mid abdomen, without masses or organomegaly. Peterson sign negative. No guarding or rebound tenderness. No CVA tenderness exam: Bilateral testicles tender to palpation over the epididymitis, cremasteric reflex intact bilaterally. No rash. No inguinal lymph node enlargement. present. MUSCULOSKELETAL: No muscle atrophy, erythema, or edema noted. NEURO: Patient was alert and oriented to person place and time. Normal sensation to light and sharp touch. No focal neurological deficits. Course Administered Medications Discontinued Medications Famotidine (Pepcid 20mg Iv Push) 20 mg in 5 mls @ 2.5 mls/min IV NOW STA Stop: 10/07/24 22:34 Last Admin: 10/07/24 22:46 Dose: 2.5 mls/min Documented By: COOKIE Acetaminophen (Ofirmev) 1,000 mg in 100 mls @ 400 mls/hr IV NOW STA Stop: 10/07/24 23:43 Last Infusion: 10/08/24 00:08 Dose: Infused Documented By: Admin: 10/07/24 23:53 Dose: 400 mls/hr Documented By: CHARLA Ioversol (Optiray 320 125ml) 120 ml IV ONCE ONE Stop: 10/07/24 23:44 Last Admin: 10/07/24 23:44 Dose: 120 ml Documented By: DARYL Ondansetron HCl (Ondansetron Inj 2 Mg/Ml 2 Ml Vial) 4 mg IV NOW STA Stop: 10/07/24 22:34 Last Admin: 10/07/24 22:46 Dose: 4 mg Documented By: COOKIE Medical Decision Making Medical Records Attestation: I reviewed the patient's medical records. Home Medications Current Medication List: was personally reviewed by me Laboratory Data Attestation: I reviewed the patient's lab results. 10/07/24 22:41 10/07/24 22:41 Lab Results 10/07/24 10/07/24 10/08/24 Range/Units 22:41 23:38 00:15 WBC 4.92 (4.8-10.8) K/ul RBC 4.56 L (4.70-6.10) M/uL Hgb 15.2 (14.0-18.0) g/dl Hct 43.6 (42.0-52.0) % MCV 95.6 (80.0-100.0) fL MCH 33.3 (25.0-34.0) pg MCHC 34.9 (32.0-36.0) g/dL RDW Std Deviation 42.8 (36.4-46.3) fL RDW Coeff of [place] 12.3 (11.5-14.5) % Plt Count 167 (130-400) K/uL MPV 11.7 (9.4-12.4) fL Immature Gran % (Auto) 0.2 % Neut % (Auto) 75.2 % Lymph % (Auto) 6.1 % [place] % (Auto) 14.4 % Eos % (Auto) 3.7 % Baso % (Auto) 0.4 % Neut # (Auto) 3.70 (1.40-6.50) K/uL Lymph # (Auto) 0.30 L (1.20-3.40) K/uL [place] # (Auto) 0.71 H (0.11-0.59) K/uL Eos # (Auto) 0.18 (0.00-0.50) K/uL Baso # (Auto) 0.02 (0.00-0.20) K/uL Immature Gran # (Auto) 0.01 (0.01-0.20) K/uL Sodium 136 (136-145) mmol/L Potassium 4.0 (3.5-5.1) mmol/L Chloride 101 (98-107) mmol/L Carbon Dioxide 24 (21-32) mmol/L Anion Gap 11 (3-11) BUN 13 (6-23) mg/dl Creatinine 1.18 (0.6-1.4) mg/dl Est Cr Clr Drug Dosing 63.3 ml/min eGFR 64.75 BUN/Creatinine Ratio 11.0 (10-20) Glucose 137 H (70-99(Fasting)) mg/dl Calcium 9.4 (8.6-10.3) mg/dl Magnesium 1.9 (1.7-2.4) mg/dl Total Bilirubin 1.0 (0.2-1.0) mg/dl AST 37 (13-39) U/L ALT 29 (7-52) U/L Alkaline Phosphatase 85 (34-104) U/L Troponin I High Sens 3.5 4.2 (0-20) pg/ml Total Protein 6.8 (6.0-8.3) gm/dl Albumin 4.1 (3.4-5.0) gm/dl Globulin 2.7 (2.5-4.0) gm/dl Albumin/Globulin Ratio 1.5 (0.9-2) Lipase 46 (11-82) U/L Urine Color Yellow Urine Appearance Clear (Clear) Urine pH 7.0 (4.5-7.5) Ur Specific [place] 1.027 (1.000-1.030) Urine Protein 1+ H (Negative) Urine Glucose (UA) Negative (Negative) Urine Ketones Trace H (Negative) Urine Blood Trace H (Negative) Urine Nitrite Negative (Negative) Urine Bilirubin Negative (Negative) Urine Urobilinogen Negative (Negative) Ur Leukocyte Esterase Negative (Negative) Urine WBC (Auto) 0-5 (0-5) /hpf Urine RBC (Auto) 11-20 H (0-2) /hpf U Hyaline Cast (Auto) 0-2 (0-2) /lpf U Epithel Cells (Auto) 0-2 (0-2) /hpf Urine Bacteria (Auto) None Seen (None Seen) Imaging Data Attestation: I personally reviewed and interpreted this imaging study as follows: Radiologist's Impression: Chest CTA 10/07/24 22:33 Exam(s): CTA CHEST IV Amt: 120ml optiray 320 EXAM: CT Angiography Chest With Intravenous Contrast CLINICAL HISTORY: Reason for exam: PE. TECHNIQUE: Axial computed tomographic angiography images of the chest with intravenous contrast. CTDI is 26.35 mGy and DLP is 2203.85 mGy-cm. Automated exposure control was utilized for the study. A dose lowering technique was utilized adhering to the principles of ALARA. MIP reconstructed images were created and reviewed. COMPARISON: Chest x-ray from October 02, 2024 FINDINGS: Pulmonary arteries: Mild the pulmonary arterial tree is well opacified with contrast. No pulmonary embolism is identified. Aorta: The thoracic aorta is nondilated but mildly calcified. There is no aneurysm or dissection. Lungs: Lungs are well-inflated. No focal infiltrate or consolidation is seen. Pleural space: Unremarkable. No significant effusion. No pneumothorax. Heart: The heart is not enlarged. Moderate coronary calcification is present involving the LAD and right coronary. No pericardial effusion. Bones/joints: Mild degenerative changes throughout the spine. No acute fracture or destructive bone lesion is seen. No dislocation. Soft tissues: Unremarkable. Lymph nodes: Mild hilar lymphadenopathy bilaterally, greater on the right measuring 1.4 cm short axis diameter. IMPRESSION: 1. Mild hilar lymphadenopathy bilaterally, greater on the right measuring 1.4 cm short axis diameter. This is nonspecific. 2. Mild the pulmonary arterial tree is well opacified with contrast. No pulmonary embolism is identified. 3. The thoracic aorta is nondilated but mildly calcified. There is no aneurysm or dissection. 4. The heart is not enlarged. Moderate coronary calcification is present involving the LAD and right coronary. No pericardial effusion. 5. Lungs are well-inflated. No focal infiltrate or consolidation is seen. Electronically signed by: Venancio Dominique MD 10/08/24 01:13 AM Scrotum Ultrasound 10/07/24 22:33 Exam(s): US SCROTAL EXAM: US Scrotum CLINICAL HISTORY: Reason for exam: left test. pain. TECHNIQUE: Real-time ultrasound of the scrotum with color Doppler and image documentation. COMPARISON: No relevant prior studies available. FINDINGS: Right testicle: The right testicle measures 3.5 x 2.3 x 5.6 cm. Doppler blood flow is normal. No torsion. Left testicle: The left testicle measures 3 x 2.7 x 5.1 cm. Doppler blood flow is normal. There is a small, slightly complex left hydrocele. No torsion. Epididymides: Unremarkable. Scrotum: See above. IMPRESSION: The left testicle measures 3 x 2.7 x 5.1 cm. Doppler blood flow is normal. There is a small, slightly complex left hydrocele. No evidence of torsion. Electronically signed by: Venancio Dominique MD 10/08/24 01:11 AM Abdomen/Pelvis CT 10/07/24 22:34 Exam(s): CT ABDOMEN + PELVIS With Contrast IV Amt: 120 ml optiray 320 EXAM: CT Abdomen and Pelvis With Intravenous Contrast CLINICAL HISTORY: Reason for exam: mid abd pain. TECHNIQUE: Axial computed tomography images of the abdomen and pelvis with intravenous contrast. CTDI is 26.35 mGy and DLP is 2203.85 mGy-cm. Automated exposure control was utilized for the study. A dose lowering technique was utilized adhering to the principles of ALARA. CONTRAST: Patient received 120 ml optiray 320 of IV contrast COMPARISON: No relevant prior studies available. FINDINGS: Lung bases: Unremarkable. No mass. No consolidation. ABDOMEN: Liver: The liver is borderline enlarged measuring 18 cm craniocaudad. No focal liver lesion is seen. Gallbladder and bile ducts: Unremarkable. No calcified stones. No ductal dilation. Pancreas: Unremarkable. No mass. No ductal dilation. Spleen: Unremarkable. No splenomegaly. Adrenals: Unremarkable. No mass. Kidneys and ureters: Kidneys enhance symmetrically with contrast. There is mild left hydronephrosis and hydroureter down to the level of the urinary bladder. No ureteral calculus is seen. There is slight enhancement of the wall of the distal ureters suggesting ascending urinary tract infection. Stomach and bowel: See below. PELVIS: Appendix: The appendix is normal. Bowel loops are nondilated. There is mild diverticulosis of the sigmoid colon without evidence of acute diverticulitis per no acute inflammatory changes are seen involving the bowel. Bladder: The urinary bladder is completely decompressed but otherwise unremarkable. Reproductive: Unremarkable as visualized. ABDOMEN and PELVIS: Intraperitoneal space: Unremarkable. No free air. No significant fluid collection. Bones/joints: Moderate multilevel degenerative changes throughout the spine. No acute fracture or subluxation is seen. Soft tissues: Unremarkable. Vasculature: Unremarkable. No abdominal aortic aneurysm. Lymph nodes: There is a single enlarged retroperitoneal lymph node adjacent to the right kidney measuring 14 mm. This is nonspecific. No other lymphadenopathy or mass is identified. IMPRESSION: 1. The appendix is normal. Bowel loops are nondilated. There is mild diverticulosis of the sigmoid colon without evidence of acute diverticulitis. No acute inflammatory changes are seen involving the bowel. 2. Kidneys enhance symmetrically with contrast. There is mild left hydronephrosis and hydroureter down to the level of the urinary bladder. No ureteral calculus is seen. There is slight enhancement of the wall of the distal ureters suggesting ascending urinary tract infection. 3. There is a single enlarged retroperitoneal lymph node adjacent to the right kidney measuring 14 mm. This is nonspecific. No other lymphadenopathy or mass is identified. Electronically signed by: Venancio Dominique MD 10/08/24 01:15 AM [facility] Narrative Prior records/ancillary studies reviewed and summarized above. Nursing notes reviewed. Additional history obtained from family. The patient's history was concerning for chest pain, dyspnea, abdominal pain and testicular pain. Differential diagnosis: Etiologies such as metabolic, infection, hypo/hyperglycemia, electrolyte abnormalities, cardiac sources, intracerebral event, toxicologic, neurologic, as well as others were entertained. Physical examination: As above. ER treatment provided: IV Lock An order was placed for continuous cardiac monitoring. The monitor shows a rate of 60-100 with a sinus rhythm per my interpretation. Zofran and Pepcid were ordered On reassessment the patient felt better. Diagnostics interpretation by me: ECG: Ordered for chest pain EKG: Normal sinus, normal intervals, minimal ST depression in the lateral leads, rate of 95. Impression normal sinus rhythm with minimal ST depression in the lateral leads independently interpreted by myself The labs Independently Interpreted by myself revealed 2 negative troponins Negative urine Imaging studies: Imaging was reviewed and read by radiology Consultation: A consultation was placed with the hospitalist. The case was discussed and diagnostics were reviewed. The patient was evaluated in the ER for further treatment. Exam and history seem consistent with chest and abdominal pain with unclear etiology. Patient does not feel comfortable going home. He is requesting admission. Medicine was consulted case is discussed. He will be evaluated for admission. 2 negative troponins. Negative CTA. Negative CT abdomen pelvis. Ultrasound concerning for hydrocele. Patient will be evaluated for possible admission. By the evaluation outlined above emergent etiologies such as infection, electrolyte abnormalities, intracerebral event, toxologic, neurologic, abnormalities blood glucose, metabolic, as well as others were deemed relatively unlikely. The pt informed about the findings as listed above. All questions were answered and pleased with the treatment. The chart was completed utilizing [employer] Speech voice recognition software. Grammatical errors, random word insertions, pronoun errors, and incomplete sentences are an occassional consequence of this system due to software limitations, ambient noise, and hardware issues. Any formal questions or concerns about the content, text, or information contained within the body of this dictation should be directly addressed to the physician assistant curator for clarification. Impression & Plan Chest pain, Abdominal pain Discharge Plan Visit Data Chief Complaint: Abdominal Pain Stated Complaint: ABD PAIN, NAUSEA, DIARRHEA, ED Provider: Edgard Ta ED Midlevel Provider: Suzi Angel Discharge Problem: Chest pain, Abdominal pain Patient Disposition: Being Evaluated by Hospitalist Condition: Good Forms Stand Alone Forms: My [facility] [employer] Prescriptions Prescriptions: No Action clopidogrel 75 mg tablet 75 mg PO QAM Qty: 90 3RF atorvastatin 80 mg tablet 80 mg PO HS Qty: 90 3RF metoprolol succinate 25 mg tablet extended release 24 hr 12.5 mg PO QAM Qty: 45 3RF famotidine [Pepcid] 20 mg tablet 20 mg PO BID Qty: 180 2RF sulfamethoxazole-trimethoprim [Bactrim DS] 800-160 mg tablet 1 tab PO BID 7 Days Qty: 14 0RF nitroglycerin [Nitrostat] 0.4 mg tablet, sublingual 0.4 mg sublingual Q5M PRN (Reason: chest pain) Qty: 25 5RF Rx Instructions: do not exceed 3 doses per episode multivitamin Tablet 1 tab PO QAM pantoprazole 40 mg Tablet,Delayed Release (Dr/Ec) 40 mg PO QAM magnesium 200 mg Tablet 400 mg PO QAM citalopram 20 mg Tablet 20 mg PO QAM cholecalciferol (vitamin D3) [Vitamin D3] 50 mcg (2,000 unit) Tablet 100 mcg PO DAILY Referrals Referrals: Jaden Carter DO [Primary Care Provider] - Discharge Problem: Chest pain Qualifiers: Chest pain type: unspecified Qualified Code(s): R07.9 - Chest pain, unspecified
[2024-10-07 23:27] LABS: Troponin I High Sensitivity 3.5 pg/ml (0-20)
[2024-10-07 23:30] LABS: Albumin Globulin Ratio 1.5 (0.9-2); Albumin Level 4.1 gm/dl (3.4-5.0); Calcium 9.4 mg/dl (8.6-10.3); Creatinine Clr Calc Pharmacy 63.3 ml/min; Globulin 2.7 gm/dl (2.5-4.0); Magnesium 1.9 mg/dl (1.7-2.4); Total Protein 6.8 gm/dl (6.0-8.3)
[2024-10-07] MEDS: OPTIRAY 320 125ml IV ONE (23:44)
[2024-10-07] MEDS: ACETAMINOPHEN 1,000 MG/100 ML VIAL IV STA (23:53)
[2024-10-07 23:56] LABS: Appearance Urine Clear (Clear); Bacteria Urine Automated None Seen (None Seen); Bilirubin Urine Negative (Negative); Blood Urine Trace (Negative); Cast Urine Automated 0-2 /lpf (0-2); Color Urine Yellow; Epithelial Cell Urine Auto 0-2 /hpf (0-2); Glucose Urine UA Negative (Negative); Ketones Urine Trace (Negative); Leukocyte Esterase Urine Negative (Negative); Nitrite Urine Negative (Negative); Protein Urine 1+ (Negative); Specific Gravity Urine 1.027 (1.000-1.030); Urobilinogen Urine Negative (Negative); WBC Urine Automated 0-5 /hpf (0-5)
--- NOTE | 2024-10-08 01:12 | Ultrasound Report ---
Exam(s): US SCROTAL EXAM: US Scrotum CLINICAL HISTORY: Reason for exam: left test. pain. TECHNIQUE: Real-time ultrasound of the scrotum with color Doppler and image documentation. COMPARISON: No relevant prior studies available. FINDINGS: Right testicle: The right testicle measures 3.5 x 2.3 x 5.6 cm. Doppler blood flow is normal. No torsion. Left testicle: The left testicle measures 3 x 2.7 x 5.1 cm. Doppler blood flow is normal. There is a small, slightly complex left hydrocele. No torsion. Epididymides: Unremarkable. Scrotum: See above. IMPRESSION: The left testicle measures 3 x 2.7 x 5.1 cm. Doppler blood flow is normal. There is a small, slightly complex left hydrocele. No evidence of torsion. Electronically signed by: Venancio Dominique MD 10/08/24 01:11 AM
--- NOTE | 2024-10-08 01:14 | CT Scan Report ---
Exam(s): CTA CHEST IV Amt: 120ml optiray 320 EXAM: CT Angiography Chest With Intravenous Contrast CLINICAL HISTORY: Reason for exam: PE. TECHNIQUE: Axial computed tomographic angiography images of the chest with intravenous contrast. CTDI is 26.35 mGy and DLP is 2203.85 mGy-cm. Automated exposure control was utilized for the study. A dose lowering technique was utilized adhering to the principles of ALARA. MIP reconstructed images were created and reviewed. COMPARISON: Chest x-ray from October 02, 2024 FINDINGS: Pulmonary arteries: Mild the pulmonary arterial tree is well opacified with contrast. No pulmonary embolism is identified. Aorta: The thoracic aorta is nondilated but mildly calcified. There is no aneurysm or dissection. Lungs: Lungs are well-inflated. No focal infiltrate or consolidation is seen. Pleural space: Unremarkable. No significant effusion. No pneumothorax. Heart: The heart is not enlarged. Moderate coronary calcification is present involving the LAD and right coronary. No pericardial effusion. Bones/joints: Mild degenerative changes throughout the spine. No acute fracture or destructive bone lesion is seen. No dislocation. Soft tissues: Unremarkable. Lymph nodes: Mild hilar lymphadenopathy bilaterally, greater on the right measuring 1.4 cm short axis diameter. IMPRESSION: 1. Mild hilar lymphadenopathy bilaterally, greater on the right measuring 1.4 cm short axis diameter. This is nonspecific. 2. Mild the pulmonary arterial tree is well opacified with contrast. No pulmonary embolism is identified. 3. The thoracic aorta is nondilated but mildly calcified. There is no aneurysm or dissection. 4. The heart is not enlarged. Moderate coronary calcification is present involving the LAD and right coronary. No pericardial effusion. 5. Lungs are well-inflated. No focal infiltrate or consolidation is seen. Electronically signed by: Venancio Dominique MD 10/08/24 01:13 AM
--- NOTE | 2024-10-08 01:16 | CT Scan Report ---
Exam(s): CT ABDOMEN + PELVIS With Contrast IV Amt: 120 ml optiray 320 EXAM: CT Abdomen and Pelvis With Intravenous Contrast CLINICAL HISTORY: Reason for exam: mid abd pain. TECHNIQUE: Axial computed tomography images of the abdomen and pelvis with intravenous contrast. CTDI is 26.35 mGy and DLP is 2203.85 mGy-cm. Automated exposure control was utilized for the study. A dose lowering technique was utilized adhering to the principles of ALARA. CONTRAST: Patient received 120 ml optiray 320 of IV contrast COMPARISON: No relevant prior studies available. FINDINGS: Lung bases: Unremarkable. No mass. No consolidation. ABDOMEN: Liver: The liver is borderline enlarged measuring 18 cm craniocaudad. No focal liver lesion is seen. Gallbladder and bile ducts: Unremarkable. No calcified stones. No ductal dilation. Pancreas: Unremarkable. No mass. No ductal dilation. Spleen: Unremarkable. No splenomegaly. Adrenals: Unremarkable. No mass. Kidneys and ureters: Kidneys enhance symmetrically with contrast. There is mild left hydronephrosis and hydroureter down to the level of the urinary bladder. No ureteral calculus is seen. There is slight enhancement of the wall of the distal ureters suggesting ascending urinary tract infection. Stomach and bowel: See below. PELVIS: Appendix: The appendix is normal. Bowel loops are nondilated. There is mild diverticulosis of the sigmoid colon without evidence of acute diverticulitis per no acute inflammatory changes are seen involving the bowel. Bladder: The urinary bladder is completely decompressed but otherwise unremarkable. Reproductive: Unremarkable as visualized. ABDOMEN and PELVIS: Intraperitoneal space: Unremarkable. No free air. No significant fluid collection. Bones/joints: Moderate multilevel degenerative changes throughout the spine. No acute fracture or subluxation is seen. Soft tissues: Unremarkable. Vasculature: Unremarkable. No abdominal aortic aneurysm. Lymph nodes: There is a single enlarged retroperitoneal lymph node adjacent to the right kidney measuring 14 mm. This is nonspecific. No other lymphadenopathy or mass is identified. IMPRESSION: 1. The appendix is normal. Bowel loops are nondilated. There is mild diverticulosis of the sigmoid colon without evidence of acute diverticulitis. No acute inflammatory changes are seen involving the bowel. 2. Kidneys enhance symmetrically with contrast. There is mild left hydronephrosis and hydroureter down to the level of the urinary bladder. No ureteral calculus is seen. There is slight enhancement of the wall of the distal ureters suggesting ascending urinary tract infection. 3. There is a single enlarged retroperitoneal lymph node adjacent to the right kidney measuring 14 mm. This is nonspecific. No other lymphadenopathy or mass is identified. Electronically signed by: Venancio Dominique MD 10/08/24 01:15 AM
--- NOTE | 2024-10-08 02:37 | History & Physical Report ---
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 He was recently hospitalized at [facility] for a chest pain workup that was essentially negative. He presented to the ED today due to ongoing epigastric pain, dyspnea, and scrotal pain. He is being admitted due to concerning cardiac history requiring stents, will have cardiology consult; hem aturia and CT findings of hydronephrosis, hydroureter, and enhancement of bladder, will consult urology; and epigastric pain workup including GI consult and possible EGD. #abdominal pain Patient with severe epigastric pain for several weeks along with dyspepsia and flatulence History of GERD CTAP showed no acute changes of bowel, mild diverticulosis without diverticulitis IV Pepcid 20 mg twice daily Carafate 1 GM 4 times daily IV pantoprazole daily Zofran and Tylenol as needed Consult GI possible EGD inpt vs outpt #chest pain/Dyspnea History of CAD s/p RCA PCI x 3 in 2003 and 2015 Chest pain more related to GERD above however dyspnea on exertion since June/July similar to when patient previously needed stents patient follows with Dr. Mahmood outpatient who referred patient for heart cath 10/02 Echo 10/05/2024 essentially negative, grade 1 diastolic dysfunction CTA on admission showed moderate coronary calcifications in LAD and RCA along with mild hilar lymphadenopathy (nonspecific) troponin negative in ED; repeat Trop with a.m. labs Monitor on telemetry EKG as needed with chest pain Consult cardiology - possible cardiac cath inpt vs out pt Continue aspirin and Plavix #hematuria/hydronephrosis Patient with history of transitional cell cancer of bladder s/p BCG treatment approximately 2 years ago Was to have repeat cystoscopy in April Patient denies gross hematuria however hematuria noted on UA Intermittent scrotal pain however Scrotal ultrasound essentially negative, left hydrocele CTAP showed mild left hydronephrosis and hydroureter down to the level of urinary bladder along with slight enhancement of wall of distal ureter suggesting ascending urinary tract infection Patient on Bactrim due to potential UTI however reported UA negative in office on Wednesday; discontinue Bactrim as asymptomatic and UA negative follow urine culture Consult urology possible cystoscopy inpt vs outpt #fever and chills Patient with intermittent fevers, chills, cough, body aches for multiple weeks Recent TSH WNL Patient concern for Lyme with many tick exposures; tick panel ordered with a.m. labs BioFire ordered and negative Tylenol and Tessalon Perle as needed Chronic stable diagnoses: depression continue citalopram HTN Continue metoprolol BPH currently not in retention, bladder scan as needed, straight cath as needed Hx PE and DVT provoked 2/ surgery in 2018, was on Xarelto however no longer requires VTE ppx: SCDs - defer chemical ppx with hematuria and possible surgical intervention Diet: heart healthy Defer n.p.o. diet after midnight as weekend admission and nonemergent causes of surgical intervention; likely n.p.o. 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 He was recently hospitalized at [facility] for a chest pain workup that was essentially negative. He presented to the ED today due to ongoing epigastric pain, dyspnea, and scrotal pain. He is being admitted due to concerning cardiac history requiring stents, will have cardiology consult; hematuria and CT findings of hydronephrosis, hydroureter, and enhancement of bladder, will consult urology; and epigastric pain workup including GI consult and possible EGD. Patient seen at bedside with present. He stated that he came in today because he is tired of the symptoms and wants some answers. Regarding his epigastric pain; it has been ongoing for several weeks weeks since he started tapering his alprazolam. He is describes it as gas and bloating and he has frequent burping and flatulence. He has had multiple episodes of significant epigastric pain that he describes as radiating up through his central chest. The pain is unrelated to eating and typically gets worse throughout the day with it being worst in the evening. He does have a history of GERD and takes Pepcid and pantoprazole but no ulcer history. He is unsure if he had an EGD but feels as though he had a colonoscopy roughly 10 years ago. He endorses vomiting due to the pain but no frequent nausea. He has continued to take Pepcid and pantoprazole at home without relief. In ED he was given IV Zofran and IV Pepcid and his pain is 0/10. Regarding his dyspnea and cardiac history, patient stated he has had dyspnea on exertion since that he noticed when he was hunting. He denies any chest pain on exertion. He can go up a flight of stairs without dyspnea but it is when he is doing very strenuous things like hiking. Previously when he required stents he had chest tightness and dyspnea that felt very similar to this so the dyspnea was concerning to him. He was admitted to [facility] discharge 10/05 in which he had a cardiac echo that was essentially negative. 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 Mahmood on 10/02 who is working on insurance Auth for potential heart cath. 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 Regarding his scrotal pain and urologic symptoms, patient has a history of transitional cell bladder cancer diagnosed by biopsy s/p BCG treatment that he finished roughly 2 years ago. He is to have a repeat cystoscope in April. He denies any gross hematuria. He stated for several weeks he has had scrotal pain that he describes as an electric shock and makes him feel as though he has to urinate. He denies dysuria. He said he had a UA last week that was negative but his urologist prescribed him Bactrim on Wednesday just as precautionary. He has not been taking this twice daily and tries to take at least 1 a day. He does endorse diarrhea x 1 day a couple days ago after starting the Bactrim, denies current diarrhea. Denies any bright red blood in stool. Patient also endorses a cough that comes and goes for roughly 2 to 3 weeks. He is also really concerned about a fever that occurs at nighttime and has come and gone for roughly 6 weeks. He noted it as high as 100.5 F. He endorses mild rhinorrhea and sore throat however nonconcerning regarding his other symptoms. He also endorses back aches and neck pain for roughly a week. He has no sick contacts. Patient is concerned with Lyme's disease; he has had testing many years ago that was negative. He has frequent tick bites but denies any bull's- eye rashes. He stated he did get tested for COVID and flu at [facility] that was negative. Patient does not use nicotine products or drink alcohol. He has no past history of previous VTE. He does not use oxygen at baseline. He still needs his evening medications; ordered on admission. He wishes to be full code. His is his POA. Allergies Allergy/AdvReac Type Severity Reaction Status Date / Time aspirin Allergy Intermediate Hives Verified 10/02/24 11:02 ibuprofen Allergy Intermediate Hives Verified 10/02/24 11:02 Penicillins Allergy Intermediate Hives Verified 10/02/24 11:02 oxycodone AdvReac Mild Dyspepsia Verified 10/02/24 11:02 Home Medications Medication Instructions Recorded Confirmed Type magnesium 200 mg tablet 400 mg PO QAM 07/05/18 10/08/24 History multivitamin 1 tab PO QAM 07/05/18 10/08/24 History pantoprazole 40 mg tablet,delayed 40 mg PO QAM 07/05/18 10/08/24 History release citalopram 20 mg tablet 20 mg PO QAM 03/26/20 10/08/24 History clopidogrel 75 mg tablet 75 mg PO QAM #90 tabs 07/22/23 10/08/24 Rx atorvastatin 80 mg tablet 80 mg PO HS #90 tabs 11/11/23 10/08/24 Rx metoprolol succinate 25 mg 12.5 mg (1/2 x 25 mg) PO QAM #45 07/05/24 10/08/24 Rx tablet,extended release 24 hr tabs famotidine 20 mg tablet (Pepcid) 20 mg PO BID #180 tabs 09/28/24 10/08/24 Rx nitroglycerin 0.4 mg sublingual 0.4 mg sublingual Q5M PRN chest 10/02/24 10/08/24 Rx tablet (Nitrostat) pain #25 tabs sulfamethoxazole 800 1 tab PO BID 7 days #14 tabs 10/03/24 10/08/24 Rx mg-trimethoprim 160 mg tablet (Bactrim DS) cholecalciferol (vitamin D3) 50 100 mcg PO DAILY 10/08/24 10/08/24 History mcg (2,000 unit) tablet (Vitamin D3) Past Med/Surg History Problem List Exertional dyspnea Fever and chills Hydronephrosis Hematuria Abdominal pain (Acute) Chest pain (Acute) Exertional angina Cough Presence of drug-eluting stent in right coronary artery Hereditary hemochromatosis Hypertension CAD (coronary artery disease) 2004- stent x2 2016- DESx1 to RCA GERD (gastroesophageal reflux disease) Controlled Hearing deficit Hyperlipidemia Anxiety Depression Benign prostatic hyperplasia (BPH) with straining on urination Medical History History of COVID-19 2022: mild symptoms, resolved 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), no chemo/xrt Arthritis History of kidney stones left side 2018 Left rotator cuff tear Mitral regurgitation Echo 11/2021: Mild MR BPH (benign prostatic hyperplasia) Osteoarthritis Hiatal hernia Deep vein thrombosis LLE DVT/PE (2017) post-op b/l TKA Previous AC discontinued, no issues since Pulmonary embolism LLE DVT/PE (2017) post-op b/l TKA Previous AC discontinued, no issues since Surgical History History of amputation of right index finger 2007 S/P left rotator cuff repair 2023 History of cystoscopy + bladder biopsy (04/02/20): LMA#5, unique at [facility] History of lithotripsy History of cardiac cath 2004- stent x2 2015, stent x1 H/O transurethral resection of prostate 1999 History of surgery Bladder tumor excision Right index finger partial amputation (2/2 trauma) History of Achilles tendon repair Right 1998 History of arthroscopy Right shoulder 2006, right knee 1979, left knee 1985 History of ankle joint replacement Right 2018 History of total knee replacement B/L TKA (Done under [place], Plavix only held 5 days prior to surgery per cardiology recommendations) History of esophagogastroduodenoscopy (EGD) History of colonoscopy History of tonsillectomy 1956 History of eye surgery 1959 Family History Mother Family history of diabetes mellitus Brother Family history of diabetes mellitus Family/Other Cardiac disorder Hypertension Father Myocardial infarction Other No family history of adverse response to anesthesia Denies family history of Ovarian cancer Prostate cancer Breast cancer Colorectal cancer Social History Smoking Status: Former smoker Tobacco Type: Cigarettes Age Started Using Tobacco: 13; Age Quit Using Tobacco: 23; packs per day: 0.25; Second Hand Exposure: No; Do You Dip or Chew Tobacco: No; Hx Alcohol Use: No Hx Substance Use: No Preferred Language: Bahamian Communication Ability: Effective Visual Impairment: No Limitations Rock Crusher Required: No Beliefs That Will Affect Care: None marital status: Current Living Situation: Spouse current occupational status: retired Other Information That Helps Us Care for You: No Feels Safe at Home: Yes Safety Concerns: Feels Safe At This Time Diet: regular Diet Comment: regular caffeine: Yes during the past year weight has: remained stable Dental Care, Regularly: Yes Physical Activity Frequency: Daily Seatbelt Use: always Sunscreen Use: No Assistive Devices: Glasses and Hearing Aid - Bilateral Review of Systems Review of Systems: See HPI Physical Exam Physical Exam: The patient is awake, alert and oriented 3, well developed and well nourished, normocephalic and atraumatic, in no acute distress. Non-toxic appearing. HEENT- EOMI, mucous membranes moist. Hearing grossly intact. Heart-normal S1 and S2. No murmurs, rubs or gallops. Lungs-clear bilaterally, no respiratory distress, no accessory muscle use. Abdomen-normal bowel sounds and soft. No ascites noted. Non-tender. Extremities- no clubbing, cyanosis, or edema. Rheumatologic-normal range of motion. Psychiatric-normal affect. Results & Data Results & Data Vital Signs (Past 12 Hours) Vital Signs Temp Pulse Resp BP Pulse Ox O2 Del Method 10/08/24 01:33 78 20 120/77 95 10/08/24 00:00 88 20 114/94 95 10/07/24 23:00 90 18 108/72 96 10/07/24 22:29 94 H 10/07/24 22:15 36.6 C 107 H 18 126/74 94 Room Air Laboratory Results reviewed CBC, CMP, troponin, UA, bio fire Diagnostic Findings reviewed chest CTA, scrotal ultrasound, AP CT Medications Administered EDIV Zofran, IV Pepcid 20 Mg, IV Tylenol 1000 Mg ECG Additional Comments: ordered Code Status & VTE Plan Code Status full code VTE Prophylaxis Plan VTE Prophylaxis will be ordered: Yes Supervising Physician Co-Signing Physician Notes Attending addendum: I have physically seen this patient, have supervised the GEORGINA's activities, and agree with the H&P unless as otherwise noted. Assessment and Plan: The patient is a 73-year-old male with past medical history including transitional cell bladder carcinoma status post BCG treatment 2 years ago, DVT/PE in 2018/surgery, CAD status post RCA PCI x 3 in 2003 and in 2015, GERD, depression, BPH, and hypertension. He had recently been seen at [facility] for chest pain, with negative workup. He presents to the emergency department due to ongoing epigastric pain, dyspnea and scrotal pain. He reports that he was advised by cardiology that if his symptoms recurred, to come to the ED for assessment. #Abdominal pain- Patient presents with severe epigastric pain times several weeks along with increased acid sensation and flatulence. CT of the pelvis showed no acute ch anges in bowel, but did show mild diverticulosis without diverticulitis. Given famotidine 20 g IV twice daily Add Carafate 1 g 4 times daily Pantoprazole 40 mg IV daily Zofran 4 mg IV every 6 hours as needed Acetaminophen 1 g IV every 8 hours as needed for mild pain or fever Consult gastroenterology Chest pain/history of CAD/status post RCA PCI times 11/1999 Initial heart enzymes negative Following with Dr. Wheeler in the outpatient setting Echo on 09/08/2024 with grade 1 diastolic dysfunction CTA negative for PE Troponin is negative, and will follow serially The patient will be admitted to telemetry for serial cardiac enzymes, serial EKG's, cardiac rhythm monitoring Consult cardiology Continue aspirin and Plavix for now Hematuria/hydroureter extending to bladder on the left Transitional cell bladder CA Discontinue Bactrim Follow urine culture sensitivity Consult urology Chronic stable conditions: Depression-continue citalopram Hypertension-continue metoprolol History of PE/DVT provoked by surgery 2017 no longer requiring anticoagulation PG Care Time/CCT Total # of Minutes Spent Total Time Spent with Patient: Total time spent is greater than 50% in coordination of care (as documented) at patient's floor/unit and/or counseling patient: Coding Level of Care Code 51030 INT INP/OBS CARE 3/75MIN Diagnoses Abdominal pain R10.9 Chest pain R07.9 Chest pain type: unspecified Hematuria R31.9 Hydronephrosis N13.30 Fever and chills R50.9 (2) Chest pain Chest pain type: unspecified Qualified Code(s): R07.9 - Chest pain, unspecified
[2024-10-08] MEDS: SUCRALFATE 1 GM/10 ML UDC PO SCH (02:47)
[2024-10-08 03:46] LABS: Adenovirus PCR Not Detected (NotDetected); Bordetella parapertussis PCR Not Detected (NotDetected); Bordetella pertussis PCR Not Detected (NotDetected); Chlamydia pneumoniae PCR Not Detected (NotDetected); Coronavirus 229E PCR Not Detected (NotDetected); Coronavirus CoV-2 (COVID19)PCR Not Detected (NotDetected); Coronavirus HKU1 PCR Not Detected (NotDetected); Coronavirus NL63 PCR Not Detected (NotDetected); Coronavirus OC43PCR Not Detected (NotDetected); Human Metapneumovirus PCR Not Detected (NotDetected); Influenza A PCR Not Detected (NotDetected); Influenza B PCR Not Detected (NotDetected); Mycoplasma pneumoniae PCR Not Detected (NotDetected); Parainfluenza Virus 1 PCR Not Detected (NotDetected); Parainfluenza Virus 2 PCR Not Detected (NotDetected); Parainfluenza Virus 3 PCR Not Detected (NotDetected); Parainfluenza Virus 4 PCR Not Detected (NotDetected); Respiratory Syncytial VirusPCR Not Detected (NotDetected); Rhinovirus/Enterovirus PCR Not Detected (NotDetected)
[2024-10-08] MEDS ORDERED: MELATONIN 3 MG TAB PO PRN (04:27)
[2024-10-08] MEDS ORDERED: BENZONATATE 100 MG CAPSULE PO PRN (04:27)
[2024-10-08] MEDS: ATORVASTATIN 40 MG TAB PO SCH (05:58)
[2024-10-08 06:29] LABS: Hematocrit (blood only) 42.8 % (42.0-52.0); Hemoglobin 14.6 g/dl (14.0-18.0); Mean Corpuscular Hemoglobin 33.4 pg (25.0-34.0); Mean Corpuscular Hgb Conc 34.1 g/dL (32.0-36.0); Mean Corpuscular Volume 97.9 fL (80.0-100.0); Platelet Count 158 K/uL (130-400); RDW Coefficient of Variation 12.4 % (11.5-14.5); RDW Standard Deviation 44.4 fL (36.4-46.3); Red Blood Count 4.37 M/uL (4.70-6.10); White Blood Count 4.69 K/ul (4.8-10.8)
[2024-10-08 06:50] LABS: BUN Creatinine Ratio 12.4 (10-20); Calcium 9.2 mg/dl (8.6-10.3); Creatinine Clr Calc Pharmacy 71.2 ml/min; Potassium 4.6 mmol/L (3.5-5.1)
--- NOTE | 2024-10-08 06:51 | Urology Consultation ---
Date of Consultation October 08, 2024 Assessment & Plan (1) Hydronephrosis: The patient has been admitted on the hospitalist service. Will defer further evaluation of his abdominal pain and shortness of breath to the primary service The primary service has consulted both GI and cardiology for further evaluation we will await their recommendations From a urologic perspective we recommend the following: The cause of his hematuria is unclear but the patient does have a history of bladder cancer as previously noted Patient is scheduled for cystoscopy in April of this year and a determination be made if patient needs to have this moved to an earlier date I do not have an exact etiology of the patient's scrotal pain, but his ultrasound is reassuring as there is no evidence of orchitis, epididymitis, or torsion Concerning the patient's hydronephrosis he appears to be asymptomatic in this regard without any flank pain and his renal function is stable (2) Hematuria: Supervising Physician Co-Signing Physician Notes Discussed patient with Bryon Cervantes. I have personally seen and evaluated the patient and reviewed his imaging. I spoke briefly with Dr. Hidalgo who is also evaluating the patient from a GI perspective. Overall, my suspicion is that his admission is not related to any underlying issues. The mild hydronephrosis on the left can certainly be explored further as an outpatient, however I do not see any reason to pursue emergent intervention. I agree with Dr. Hidalgo that cardiac evaluation should be performed first regardless. His left testicular pain could be related to the mild hyperemia of the distal left ureter as this can often refer pain to his left testis, however his UA does not appear consistent with infection. Culture is pending but he had a culture on 09/27/2024 that was negative. He would be due for outpatient cystoscopy in April 2025, however I did discuss that we could arrange for an outpatient cystoscopy in the next month as a precaution. No intervention or treatment indicated or planned during this hospitalization barring a substantial change. Please call if further issues arise. History of Present Illness Reason for Consultation: Scrotal pain Hematuria Attending Physician: Merrill Carrera MD History of Present Illness This is a 73-year-old male who presented to the emergency department [facility] secondary to epigastric pain some shortness of breath and scrotal pain. The patient notes that the epigastric pain has been ongoing for several weeks. He says that he has some bloating but has not had any nausea or vomiting. He does note that the pain radiates somewhat up into his central chest. He denies any fevers, shakes, or chills. Regarding the patient's scrotal pain he said that it radiates somewhat to his left groin. He denies any heavy straining or lifting. He denies any back or flank pain. He denies any gross hematuria. He denies any dysuria. He feels as though his urine stream is strong and that he can empty his bladder completely. He does report that he has a history of bladder cancer treated with BCG treatment. He notes that his most recent cystoscopy was performed approximately 6 months ago and he follows locally with Dr. Manish Padilla of [facility]. He notes that his next cystoscopy is scheduled for April of this year. In addition the patient does report some dyspnea. He reports that he has a significant cardiac history having had cardiac catheterization with stent placement in 2003. Since arrival/admission to the hospital he has had labs and imaging which I independent reviewed. A CT scan of the chest showed no evidence of pulmonary emboli. There is no evidence of aortic dissection. Patient had a scrotal ultrasound that showed no evidence of torsion. Patient was noted to have a left hydrocele. There is no evidence of epididymitis orchitis on the study. A CT scan of the abdomen pelvis was performed. The patient was noted to have a normal appendix on this study. There is no free air. Patient was noted to have symmetrically enhancing kidneys but the patient did have mild left hydronephrosis. There are no kidney stones noted.The urinalysis was not indicative of infection the patient was noted to have trace blood and 11-20 red blood cells per high-power field At the time of my interview the patient was resting comfortably in bed and is in no distress. Allergies Allergy/AdvReac Type Severity Reaction Status Date / Time aspirin Allergy Intermediate Hives Verified 10/02/24 11:02 ibuprofen Allergy Intermediate Hives Verified 10/02/24 11:02 Penicillins Allergy Intermediate Hives Verified 10/02/24 11:02 oxycodone AdvReac Mild Dyspepsia Verified 10/02/24 11:02 Home Medications Medication Instructions Recorded Confirmed Type magnesium 200 mg tablet 400 mg PO QAM 07/05/18 10/08/24 History multivitamin 1 tab PO QAM 07/05/18 10/08/24 History pantoprazole 40 mg tablet,delayed 40 mg PO QAM 07/05/18 10/08/24 History release citalopram 20 mg tablet 20 mg PO QAM 03/26/20 10/08/24 History clopidogrel 75 mg tablet 75 mg PO QAM #90 tabs 07/22/23 10/08/24 Rx atorvastatin 80 mg tablet 80 mg PO HS #90 tabs 11/11/23 10/08/24 Rx metoprolol succinate 25 mg 12.5 mg (1/2 x 25 mg) PO QAM #45 07/05/24 10/08/24 Rx tablet,extended release 24 hr tabs famotidine 20 mg tablet (Pepcid) 20 mg PO BID #180 tabs 09/28/24 10/08/24 Rx nitroglycerin 0.4 mg sublingual 0.4 mg sublingual Q5M PRN chest 10/02/24 10/08/24 Rx tablet (Nitrostat) pain #25 tabs sulfamethoxazole 800 1 tab PO BID 7 days #14 tabs 10/03/24 10/08/24 Rx mg-trimethoprim 160 mg tablet (Bactrim DS) cholecalciferol (vitamin D3) 50 100 mcg PO DAILY 10/08/24 10/08/24 History mcg (2,000 unit) tablet (Vitamin D3) Patient History Medical History History of COVID-19 2022: mild symptoms, resolved 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), no chemo/xrt Arthritis History of kidney stones left side 2018 Left rotator cuff tear Mitral regurgitation Echo 11/2021: Mild MR BPH (benign prostatic hyperplasia) Osteoarthritis Hiatal hernia Deep vein thrombosis LLE DVT/PE (2017) post-op b/l TKA Previous AC discontinued, no issues since Pulmonary embolism LLE DVT/PE (2017) post-op b/l TKA Previous AC discontinued, no issues since Surgical History History of amputation of right index finger 2007 S/P left rotator cuff repair 2023 History of cystoscopy + bladder biopsy (04/02/20): LMA#5, unique at [facility] History of lithotripsy History of cardiac cath 2004- stent x2 2016, stent x1 H/O transurethral resection of prostate 2000 History of surgery Bladder tumor excision Right index finger partial amputation (2/2 trauma) History of Achilles tendon repair Right 1999 History of arthroscopy Right shoulder 2005, right knee 1979, left knee 1985 History of ankle joint replacement Right 2018 History of total knee replacement B/L TKA (Done under [place], Plavix only held 5 days prior to surgery per cardiology recommendations) History of esophagogastroduodenoscopy (EGD) History of colonoscopy History of tonsillectomy 1956 History of eye surgery 1960 Family History Mother Family history of diabetes mellitus Brother Family history of diabetes mellitus Family/Other Cardiac disorder Hypertension Father Myocardial infarction Other No family history of adverse response to anesthesia Denies family history of Ovarian cancer Prostate cancer Breast cancer Colorectal cancer Social History Smoking Status: Former smoker Tobacco Type: Cigarettes Age Started Using Tobacco: 13; Age Quit Using Tobacco: 23; packs per day: 0.25; Second Hand Exposure: No; Do You Dip or Chew Tobacco: No; Hx Alcohol Use: No Hx Substance Use: No Preferred Language: Armenian Communication Ability: Effective Visual Impairment: No Limitations Manager Payment Required: No Beliefs That Will Affect Care: None marital status: Current Living Situation: Spouse current occupational status: retired Other Information That Helps Us Care for You: No Feels Safe at Home: Yes Safety Concerns: Feels Safe At This Time Diet: regular Diet Comment: regular caffeine: Yes during the past year weight has: remained stable Dental Care, Regularly: Yes Physical Activity Frequency: Daily Seatbelt Use: always Sunscreen Use: No Assistive Devices: Glasses and Hearing Aid - Bilateral Review of Systems Review of Systems: All systems reviewed & are unremarkable except as noted in HPI & below Physical Exam Constitutional: WD/WN, vitals as above Eyes: no conjunctival abnormality ENMT: Ears: no hearing impairment and no external ear abnormality Mouth: no oropharynx abnormality Neck: trachea midline Respiratory: normal respiratory effort; no respiratory distress and no labored breathing Cardiovascular: Rate/Rhythm: regular rate and regular rhythm Gastrointestinal (Abdomen): At the time my exam the patient's abdomen was soft without distention. He has no rebound tenderness or guarding and no pain with palpation Musculoskeletal: No calf tenderness Skin: no rashes Neurologic: moves all extremities Psychiatric: A+Ox3, euthymic affect Genitourinary: The patient's genitals were examined. Patient had normal-appearing circumcised penis. The patient's scrotum was nonswollen and not erythematous. I do not appreciate any scars, open areas or eschars. His testicular's were not painful to palpation I did not appreciate any masses. He did not have any CVA tenderness with percussion bilaterally Results & Data Vital Signs (Past 12 Hours) Vital Signs Temp Pulse Resp BP BP Pulse Ox O2 Del Method 10/08/24 04:20 36.9 C 18 141/85 H 96 Room Air 10/08/24 04:00 73 20 94 10/08/24 03:30 70 18 131/87 96 10/08/24 01:33 78 20 120/77 95 10/08/24 00:00 88 20 114/94 95 10/07/24 23:00 90 18 108/72 96 10/07/24 22:29 94 H 10/07/24 22:15 36.6 C 107 H 18 126/74 94 Room Air PG Care Time/CCT Total # of Minutes Spent Total Time Spent with Patient: Total time spent is greater than 50% in coordination of care (as documented) at patient's floor/unit and/or counseling patient: Coding Level of Care Code 28592 IN/OBS CONSULT LVL 5,80M Diagnoses Hydronephrosis N13.30 Hematuria R31.9
[2024-10-08 06:54] LABS: Basophils # (auto) 0.02 K/uL (0.00-0.20); Basophils % (auto) 0.4 %; Echinocytes 1+; Eosinophils # (auto) 0.11 K/uL (0.00-0.50); Eosinophils % (auto) 2.3 %; Immature Granulocytes # (auto) 0.01 K/uL (0.01-0.20); Immature Granulocytes % (auto) 0.2 %; Lymphocytes % (auto) 8.5 %; Monocytes # (auto) 0.58 K/uL (0.11-0.59); Monocytes % (auto) 12.4 %; Neutrophils # (auto) 3.57 K/uL (1.40-6.50); Neutrophils % (auto) 76.2 %; Polychromasia 1+
[2024-10-08 06:57] LABS: Troponin I High Sensitivity 4.2 pg/ml (0-20)
--- NOTE | 2024-10-08 08:16 | Hospitalist Progress Note ---
Date of Service October 08, 2024 Assessment & Plan (1) Abdominal pain: (2) GERD (gastroesophageal reflux disease): (3) Chest pain: (4) Exertional dyspnea: (5) Hematuria: (6) Hydronephrosis: (7) Fever and chills: Plan Patient is a 73 y/o male With a past medical history of transitional cell carcinoma bladder s/p BCG treatment 2 years ago, DVT/PE in 2018 provoked by surgery, CAD s/p RCA PCI x 3 in 2003 in 2015, GERD, depression, BPH, hypertension. He was recently hospitalized at [facility] for a chest pain workup that was essentially negative. He presented to the ED today due to ongoing epigastric pain, dyspnea, and scrotal pain. He is being admitted due to concerning cardiac history requiring stents, will have cardiology consult; hematuria and CT findings of hydronephrosis, hydroureter, and enhancement of bladder, will consult urology; and epigastric pain workup including GI consult and possible EGD. #Abdominal pain / GERD Patient with severe epigastric pain for several weeks along with dyspepsia and flatulence. History of GERD CTAP showed no acute changes of bowel, mild diverticulosis without diverticulitis IV Pepcid 20 mg twice daily Carafate 1 GM 4 times daily IV pantoprazole daily Zofran and Tylenol as needed GI consulted possible EGD inpt vs outpt; needs cardiology input first #Chest pain / Exertional dyspnea History of CAD s/p RCA PCI x 3 in 2003 and [address]. [address] Mahmood outpatient who referred patient for heart cath 10/02/24 Chest pain more related to GERD above however dyspnea on exertion since similar to when patient previously needed stents Echo 10/05/2024 essentially negative, grade 1 diastolic dysfunction CTA on admission showed moderate coronary calcifications in LAD and RCA along with mild hilar lymphadenopathy (nonspecific) Troponin negative x 3, EKG NSR no ischemic changes Continue Plavix 75 mg daily, continue atorvastatin 80 mg daily, continue metoprolol 12.5 mg daily (he he is not a candidate for aspirin which caused hives) Cardiology consulted - possible cardiac cath inpt vs out pt #Hematuria / Hydronephrosis Patient with history of transitional cell cancer of bladder s/p BCG treatment approximately 2 years ago Scheduled for repeat cystoscopy in April 2025 Patient denies gross hematuria however hematuria noted on UA Intermittent scrotal pain however Scrotal ultrasound essentially negative, left hydrocele -- no evidence of orchitis, epididymitis, or testicular torsion CTAP showed mild left hydronephrosis and hydroureter down to the level of urinary bladder along with slight enhancement of wall of distal ureter suggesting ascending urinary tract infection 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 in office on Wednesday; Bactrim discontinued on admission as asymptomatic and UA negative Repeat urine culture pending Urology consulted possible cystoscopy inpt vs outpt #Fever and chills Patient with intermittent fevers, chills, cough, body aches for multiple weeks Recent TSH WNL Patient concern for Lyme with many tick exposures; tick panel pending [employer] negative Tylenol and Tessalon Perle as needed Chronic stable diagnoses: Depression continue citalopram HTN Continue metoprolol BPH currently not in retention, bladder scan as needed, straight cath as needed Hx PE and DVT provoked 2/2 surgery in 2018, was on Xarelto however no longer requires VTE ppx: SCDs - defer chemical ppx with hematuria and possible surgical intervention Diet: heart healthy - n.p.o. after midnight 2/3 pending possible cardiac procedure Dispo: med/telemetry with chest pain; continue inpatient stay while awaiting specialists' input Admission and Anticipated Discharge Date Admission Date: October 08, 2024 Supervising Physician Co-Signing Physician Notes Attending Attestation - Chart reviewed, care plan d/w OPHELIA Solitario. I agree w/ the montes components of her documentation. Appreciate urology, GI, and cardiology consultations. Possible heart cath tomorrow. NPO after MN for such. If any fever --> blood cx's. Will add crp/sed rate to am labs due to recent fevers & lymphadenopathy seen on chest/abd/pelvis CTs. Merrill Carrera MD Subjective Patient seen and evaluated at bedside. He states his epigastric pain is persistent but tolerable at this time; nausea is intermittent but tolerable with antiemetics. He denies chest pain, dyspnea currently. Reports some dyapnea on exertion with "heavy duty activities" but denies significant dyspnea with ambulation or stairs. Discussed the evals/recommendations from GI and urology so far - awaiting cardiology eval and recs. No additional complaints or concerns at this time. Physical Exam Physical Exam: General: No acute distress, nondiaphoretic, well-developed, well-nourished. Cardiac: Regular rate and rhythm without murmurs gallops or rubs. Pulm: Clear to auscultation bilaterally without wheezes, rales or rhonchi. No respiratory distress. 96% on room air. Abdominal: Soft, nondistended. Mild epigastric tenderness. Bowel sounds present. Neuro: A&O x3. No focal neurological deficits. Results & Data Results & Data Vital Signs (Past 12 Hours) Vital Signs Temp Pulse Resp BP BP Pulse Ox O2 Del Method 10/08/24 07:19 75 10/08/24 07:16 69 10/08/24 04:20 98.4 F 18 141/85 H 96 Room Air 10/08/24 04:00 73 20 94 10/08/24 03:30 70 18 131/87 96 10/08/24 01:33 78 20 120/77 95 10/08/24 00:00 88 20 114/94 95 10/07/24 23:00 90 18 108/72 96 10/07/24 22:29 94 H 10/07/24 22:15 97.9 F 107 H 18 126/74 94 Room Air Laboratory Results Reviewed CBC Reviewed CMP Reviewed chemistries Reviewed UA Reviewed tick panel/bio fire Diagnostic Findings Reviewed chest CT Reviewed scrotal ultrasound Reviewed CT A/P PG Care Time/CCT Total # of Minutes Spent Total Time Spent with Patient: Total time spent is greater than 50% in coordination of care (as documented) at patient's floor/unit and/or counseling patient: Coding Level of Care Code 83424 SUB INP/OBS CARE 2/35MIN Diagnoses Abdominal pain R10.9 GERD (gastroesophageal reflux disease) K21.9 Chest pain R07.9 Chest pain type: unspecified Exertional dyspnea R06.09 Hematuria R31.9 Hydronephrosis N13.30 Fever and chills R50.9 (3) Chest pain Chest pain type: unspecified Qualified Code(s): R07.9 - Chest pain, unspecified
[2024-10-08] MEDS: PANTOprazole 40 MG/10 ML SYR IV SCH (08:34)
[2024-10-08] MEDS: CLOPIDOGREL BISULFATE 75 MG TAB PO SCH (08:35)
[2024-10-08] MEDS: CITALOPRAM 20 MG TAB PO SCH (08:35)
[2024-10-08] MEDS: METOPROLOL SUCC 25MG EXT REL TAB PO SCH (08:35)
[2024-10-08] MEDS: MAGNESIUM OXIDE 400 MG TAB PO SCH (08:35)
[2024-10-08] MEDS: FAMOTIDINE 20MG IV PUSH 20 MG/5 ML SYR IV SCH (08:37)
[2024-10-08] MEDS: ACETAMINOPHEN 325 MG TAB PO PRN (09:08)
--- NOTE | 2024-10-08 09:11 | Electrocardiogram Report ---
Test Reason : Blood Pressure : */* mmHG Vent. Rate : 95 BPM Atrial Rate : 95 BPM P-R Int : 148 ms QRS Dur : 74 ms QT Int : 350 ms P-R-T Axes : 10 44 11 degrees QTcB Int : 439 ms Normal sinus rhythm Minor Nonspecific ST abnormality Anterolateral leads Abnormal ECG When compared with ECG of 08-Feb-2024 11:26, Vent. rate has increased by [address] abnormality Anterolateral leads now present Confirmed by Jorge Tavera ([id number]) on 10/08/2024 9:11:34 AM Referred By: REFERRED SELF Confirmed By: Jorge Tavera
--- NOTE | 2024-10-08 10:23 | Gastrointestinal Consultation ---
Date of Consultation October 08, 2024 Assessment & Plan (1) Chest pain: He has chest pain and a history of chronic heartburn. First heartburn does not occur that leads you to need Morphine to control it. It would be unusual to have "severe heartburn" while taking a PPI such as pantoprazole. I do think he probably needs EGD at some point but he has so much cardiac history I would like to see their approach before planning EGD. Also he is on plavix so we would need to wait 5 days or so to safely be able to biopsy anything on EGD. This could be esophageal spasm but we usually make this diagnosis as a diagnosis of exclusion. Will follow and decide about the planning of the EGD. It may be that it is done as an outpatient. History of Present Illness Reason for Consultation: Chest pain Attending Physician: Merrill Carrera MD History of Present Illness 73 year old man spent several days at the hospital in [place] for chest pain. Blood tests told them it wasn't his heart. He was given pepcid and sent out. He describes an uneasy feeling that starts in his upper abdomen and then as it progresses it moves into his chest. It will become "severe heartburn" and last for hours. He denies radiation with the pain. He does get nauseated. He doesn't necessarily feel short of breath with it but he does get more short of breath easier than he used to. 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 He has been on pantoprazole for years but has not seen a GI doctor for heartburn. He tells me he had an EGD and a colonoscopy about 8 years ago and was told he had a "hiatal hernia". Currently he feels fine. He says between spells he never really feels well. He had an ultrasound of his gallbladder recently that was normal. CT of the abdomen is unremarkable as well. Allergies Allergy/AdvReac Type Severity Reaction Status Date / Time aspirin Allergy Intermediate Hives Verified 10/02/24 11:02 ibuprofen Allergy Intermediate Hives Verified 10/02/24 11:02 Penicillins Allergy Intermediate Hives Verified 10/02/24 11:02 oxycodone AdvReac Mild Dyspepsia Verified 10/02/24 11:02 Home Medications Medication Instructions Recorded Confirmed Type magnesium 200 mg tablet 400 mg PO QAM 07/05/18 10/08/24 History multivitamin 1 tab PO QAM 07/05/18 10/08/24 History pantoprazole 40 mg tablet,delayed 40 mg PO QAM 07/05/18 10/08/24 History release citalopram 20 mg tablet 20 mg PO QAM 03/26/20 10/08/24 History clopidogrel 75 mg tablet 75 mg PO QAM #90 tabs 07/22/23 10/08/24 Rx atorvastatin 80 mg tablet 80 mg PO HS #90 tabs 11/11/23 10/08/24 Rx metoprolol succinate 25 mg 12.5 mg (1/2 x 25 mg) PO QAM #45 07/05/24 10/08/24 Rx tablet,extended release 24 hr tabs famotidine 20 mg tablet (Pepcid) 20 mg PO BID #180 tabs 09/28/24 10/08/24 Rx nitroglycerin 0.4 mg sublingual 0.4 mg sublingual Q5M PRN chest 10/02/24 10/08/24 Rx tablet (Nitrostat) pain #25 tabs sulfamethoxazole 800 1 tab PO BID 7 days #14 tabs 10/03/24 10/08/24 Rx mg-trimethoprim 160 mg tablet (Bactrim DS) cholecalciferol (vitamin D3) 50 100 mcg PO DAILY 10/08/24 10/08/24 History mcg (2,000 unit) tablet (Vitamin D3) Patient History Medical History History of COVID-19 2022: mild symptoms, resolved 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), no chemo/xrt Arthritis History of kidney stones left side 2018 Left rotator cuff tear Mitral regurgitation Echo 11/2021: Mild MR BPH (benign prostatic hyperplasia) Osteoarthritis Hiatal hernia Deep vein thrombosis LLE DVT/PE (2017) post-op b/l TKA Previous AC discontinued, no issues since Pulmonary embolism LLE DVT/PE (2017) post-op b/l TKA Previous AC discontinued, no issues since Surgical History History of amputation of right index finger 2007 S/P left rotator cuff repair 2024 History of cystoscopy + bladder biopsy (04/02/20): LMA#5, unique at [facility] History of lithotripsy History of cardiac cath 2004- stent x2 2016, stent x1 H/O transurethral resection of prostate 2000 History of surgery Bladder tumor excision Right index finger partial amputation (2/2 trauma) History of Achilles tendon repair Right 1999 History of arthroscopy Right shoulder 2006, right knee 1979, left knee 1985 History of ankle joint replacement Right 2018 History of total knee replacement B/L TKA (Done under [place], Plavix only held 5 days prior to surgery per cardiology recommendations) History of esophagogastroduodenoscopy (EGD) History of colonoscopy History of tonsillectomy 195 History of eye surgery 1960 Family History Mother Family history of diabetes mellitus Brother Family history of diabetes mellitus Family/Other Cardiac disorder Hypertension Father Myocardial infarction Other No family history of adverse response to anesthesia Denies family history of Ovarian cancer Prostate cancer Breast cancer Colorectal cancer Social History Smoking Status: Former smoker Tobacco Type: Cigarettes Age Started Using Tobacco: 13; Age Quit Using Tobacco: 23; packs per day: 0.25; Second Hand Exposure: No; Do You Dip or Chew Tobacco: No; Hx Alcohol Use: No Hx Substance Use: No Preferred Language: Egyptian Communication Ability: Effective Visual Impairment: No Limitations 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 Beliefs That Will Affect Care: None marital status: Current Living Situation: Spouse current occupational status: retired Other Information That Helps Us Care for You: No Feels Safe at Home: Yes Safety Concerns: Feels Safe At This Time Diet: regular Diet Comment: regular caffeine: Yes during the past year weight has: remained stable Dental Care, Regularly: Yes Physical Activity Frequency: Daily Seatbelt Use: always Sunscreen Use: No Assistive Devices: Glasses and Hearing Aid - Bilateral Review of Systems Review of Systems: All systems reviewed & are unremarkable except as noted in HPI & below Physical Exam Constitutional: WD/WN, vitals as above Neck: trachea midline, no thyromegaly Respiratory: normal respiratory effort, lungs clear to auscultation Cardiovascular: RRR, no murmur, no edema Gastrointestinal (Abdomen): normal bowel sounds, soft, nontender, no hepatosplenomegaly Results & Data Vital Signs (Past 12 Hours) Vital Signs Temp Pulse Resp BP BP Pulse Ox O2 Del Method 10/08/24 07:19 75 10/08/24 07:16 69 10/08/24 04:20 36.9 C 18 141/85 H 96 Room Air 10/08/24 04:00 73 20 94 10/08/24 03:30 70 18 131/87 96 10/08/24 01:33 78 20 120/77 95 10/08/24 00:00 88 20 114/94 95 10/07/24 23:00 90 18 108/72 96 10/07/24 22:29 94 H Laboratory Results 10/08/24 10/08/24 10/08/24 Range/Units 05:41 02:53 00:15 WBC 4.69 L (4.8-10.8) K/ul RBC 4.37 L (4.70-6.10) M/uL Hgb 14.6 (14.0-18.0) g/dl Hct 42.8 (42.0-52.0) % MCV 97.9 (80.0-100.0) fL MCH 33.4 (25.0-34.0) pg MCHC 34.1 (32.0-36.0) g/dL RDW Std Deviation 44.4 (36.4-46.3) fL RDW Coeff of [place] 12.4 (11.5-14.5) % Plt Count 158 (130-400) K/uL MPV 12.0 (9.4-12.4) fL Immature Gran % (Auto) 0.2 % Neut % (Auto) 76.2 % Lymph % (Auto) 8.5 % Glenn % (Auto) 12.4 % Eos % (Auto) 2.3 % Baso % (Auto) 0.4 % Neut # (Auto) 3.57 (1.40-6.50) K/uL Lymph # (Auto) 0.40 L (1.20-3.40) K/uL Glenn # (Auto) 0.58 (0.11-0.59) K/uL Eos # (Auto) 0.11 (0.00-0.50) K/uL Baso # (Auto) 0.02 (0.00-0.20) K/uL Immature Gran # (Auto) 0.01 (0.01-0.20) K/uL Polychromasia 1+ Echinocytes 1+ Sodium 137 (136-145) mmol/L Potassium 4.6 (3.5-5.1) mmol/L Chloride 101 (98-107) mmol/L Carbon Dioxide 28 (21-32) mmol/L Anion Gap 8 (3-11) BUN 13 (6-23) mg/dl Creatinine 1.05 (0.6-1.4) mg/dl Est Cr Clr Drug Dosing 71.2 ml/min eGFR 74.49 BUN/Creatinine Ratio 12.4 (10-20) Glucose 107 H (70-99(Fasting)) mg/dl Calcium 9.2 (8.6-10.3) mg/dl Magnesium 2.0 (1.7-2.4) mg/dl Total Bilirubin (0.2-1.0) mg/dl AST (13-39) U/L ALT (7-52) U/L Alkaline Phosphatase (34-104) U/L Troponin I High Sens 4.2 4.2 (0-20) pg/ml Total Protein (6.0-8.3) gm/dl Albumin (3.4-5.0) gm/dl Globulin (2.5-4.0) gm/dl Albumin/Globulin Ratio (0.9-2) Lipase (11-82) U/L Urine Color Urine Appearance (Clear) Urine pH (4.5-7.5) Ur Specific [place] (1.000-1.030) Urine Protein (Negative) Urine Glucose (UA) (Negative) Urine Ketones (Negative) Urine Blood (Negative) Urine Nitrite (Negative) Urine Bilirubin (Negative) Urine Urobilinogen (Negative) Ur Leukocyte Esterase (Negative) Urine WBC (Auto) (0-5) /hpf Urine RBC (Auto) (0-2) /hpf U Hyaline Cast (Auto) (0-2) /lpf U Epithel Cells (Auto) (0-2) /hpf Urine Bacteria (Auto) (None Seen) Adenovirus (PCR) Not Detected (NotDetected) Anaplasma Smear See Comment A. phagocytophilum DNA Pending Babesia Smear See Comment B. pertussis DNA (PCR) Not Detected (NotDetected) B.parapertussis DNA PCR Not Detected (NotDetected) Lyme Disease Screen Negative (Negative) C. pneumoniae DNA (PCR) Not Detected (NotDetected) Coronavirus OC43 (PCR) Not Detected (NotDetected) Coronavirus HKU1 (PCR) Not Detected (NotDetected) Coronavirus 229E (PCR) Not Detected (NotDetected) SARS-CoV-2 (PCR) Not Detected (NotDetected) Coronavirus NL63 (PCR) Not Detected (NotDetected) Human Metapneumovir PCR Not Detected (NotDetected) Influenza Type A (PCR) Not Detected (NotDetected) Influenza Type B (PCR) Not Detected (NotDetected) M. pneumoniae (PCR) Not Detected (NotDetected) Parainfluenza 1 (PCR) Not Detected (NotDetected) Parainfluenza 2 (PCR) Not Detected (NotDetected) Parainfluenza 3 (PCR) Not Detected (NotDetected) Parainfluenza 4 (PCR) Not Detected (NotDetected) RSV (PCR) Not Detected (NotDetected) Entero/Rhino (PCR) Not Detected (NotDetected) 10/07/24 10/07/24 Range/Units 23:38 22:41 WBC 4.92 (4.8-10.8) K/ul RBC 4.56 L (4.70-6.10) M/uL Hgb 15.2 (14.0-18.0) g/dl Hct 43.6 (42.0-52.0) % MCV 95.6 (80.0-100.0) fL MCH 33.3 (25.0-34.0) pg MCHC 34.9 (32.0-36.0) g/dL RDW Std Deviation 42.8 (36.4-46.3) fL RDW Coeff of Concha 12.3 (11.5-14.5) % Plt Count 167 (130-400) K/uL MPV 11.7 (9.4-12.4) fL Immature Gran % (Auto) 0.2 % Neut % (Auto) 75.2 % Lymph % (Auto) 6.1 % Glenn % (Auto) 14.4 % Eos % (Auto) 3.7 % Baso % (Auto) 0.4 % Neut # (Auto) 3.70 (1.40-6.50) K/uL Lymph # (Auto) 0.30 L (1.20-3.40) K/uL Glenn # (Auto) 0.71 H (0.11-0.59) K/uL Eos # (Auto) 0.18 (0.00-0.50) K/uL Baso # (Auto) 0.02 (0.00-0.20) K/uL Immature Gran # (Auto) 0.01 (0.01-0.20) K/uL Polychromasia Echinocytes Sodium 136 (136-145) mmol/L Potassium 4.0 (3.5-5.1) mmol/L Chloride 101 (98-107) mmol/L Carbon Dioxide 24 (21-32) mmol/L Anion Gap 11 (3-11) BUN 13 (6-23) mg/dl Creatinine 1.18 (0.6-1.4) mg/dl Est Cr Clr Drug Dosing 63.3 ml/min eGFR 64.75 BUN/Creatinine Ratio 11.0 (10-20) Glucose 137 H (70-99(Fasting)) mg/dl Calcium 9.4 (8.6-10.3) mg/dl Magnesium 1.9 (1.7-2.4) mg/dl Total Bilirubin 1.0 (0.2-1.0) mg/dl AST 37 (13-39) U/L ALT 29 (7-52) U/L Alkaline Phosphatase 85 (34-104) U/L Troponin I High Sens 3.5 (0-20) pg/ml Total Protein 6.8 (6.0-8.3) gm/dl Albumin 4.1 (3.4-5.0) gm/dl Globulin 2.7 (2.5-4.0) gm/dl Albumin/Globulin Ratio 1.5 (0.9-2) Lipase 46 (11-82) U/L Urine Color Yellow Urine Appearance Clear (Clear) Urine pH 7.0 (4.5-7.5) Ur Specific [place] 1.027 (1.000-1.030) Urine Protein 1+ H (Negative) Urine Glucose (UA) Negative (Negative) Urine Ketones Trace H (Negative) Urine Blood Trace H (Negative) Urine Nitrite Negative (Negative) Urine Bilirubin Negative (Negative) Urine Urobilinogen Negative (Negative) Ur Leukocyte Esterase Negative (Negative) Urine WBC (Auto) 0-5 (0-5) /hpf Urine RBC (Auto) 11-20 H (0-2) /hpf U Hyaline Cast (Auto) 0-2 (0-2) /lpf U Epithel Cells (Auto) 0-2 (0-2) /hpf Urine Bacteria (Auto) None Seen (None Seen) Adenovirus (PCR) (NotDetected) Anaplasma Smear A. phagocytophilum DNA Babesia Smear B. pertussis DNA (PCR) (NotDetected) B.parapertussis DNA PCR (NotDetected) Lyme Disease Screen (Negative) C. pneumoniae DNA (PCR) (NotDetected) Coronavirus OC43 (PCR) (NotDetected) Coronavirus HKU1 (PCR) (NotDetected) Coronavirus 229E (PCR) (NotDetected) SARS-CoV-2 (PCR) (NotDetected) Coronavirus NL63 (PCR) (NotDetected) Human Metapneumovir PCR (NotDetected) Influenza Type A (PCR) (NotDetected) Influenza Type B (PCR) (NotDetected) M. pneumoniae (PCR) (NotDetected) Parainfluenza 1 (PCR) (NotDetected) Parainfluenza 2 (PCR) (NotDetected) Parainfluenza 3 (PCR) (NotDetected) Parainfluenza 4 (PCR) (NotDetected) RSV (PCR) (NotDetected) Entero/Rhino (PCR) (NotDetected) Diagnostic Findings Chest CTA 10/07/24 22:33 Exam(s): CTA CHEST IV Amt: 120ml optiray 320 EXAM: CT Angiography Chest With Intravenous Contrast CLINICAL HISTORY: Reason for exam: PE. TECHNIQUE: Axial computed tomographic angiography images of the chest with intravenous contrast. CTDI is 26.35 mGy and DLP is 2203.85 mGy-cm. Automated exposure control was utilized for the study. A dose lowering technique was utilized adhering to the principles of ALARA. MIP reconstructed images were created and reviewed. COMPARISON: Chest x-ray from October 02, 2024 FINDINGS: Pulmonary arteries: Mild the pulmonary arterial tree is well opacified with contrast. No pulmonary embolism is identified. Aorta: The thoracic aorta is nondilated but mildly calcified. There is no aneurysm or dissection. Lungs: Lungs are well-inflated. No focal infiltrate or consolidation is seen. Pleural space: Unremarkable. No significant effusion. No pneumothorax. Heart: The heart is not enlarged. Moderate coronary calcification is present involving the LAD and right coronary. No pericardial effusion. Bones/joints: Mild degenerative changes throughout the spine. No acute fracture or destructive bone lesion is seen. No dislocation. Soft tissues: Unremarkable. Lymph nodes: Mild hilar lymphadenopathy bilaterally, greater on the right measuring 1.4 cm short axis diameter. IMPRESSION: 1. Mild hilar lymphadenopathy bilaterally, greater on the right measuring 1.4 cm short axis diameter. This is nonspecific. 2. Mild the pulmonary arterial tree is well opacified with contrast. No pulmonary embolism is identified. 3. The thoracic aorta is nondilated but mildly calcified. There is no aneurysm or dissection. 4. The heart is not enlarged. Moderate coronary calcification is present involving the LAD and right coronary. No pericardial effusion. 5. Lungs are well-inflated. No focal infiltrate or consolidation is seen. Electronically signed by: Venancio Dominique MD 10/08/24 01:13 AM Scrotum Ultrasound 10/07/24 22:33 Exam(s): US SCROTAL EXAM: US Scrotum CLINICAL HISTORY: Reason for exam: left test. pain. TECHNIQUE: Real-time ultrasound of the scrotum with color Doppler and image documentation. COMPARISON: No relevant prior studies available. FINDINGS: Right testicle: The right testicle measures 3.5 x 2.3 x 5.6 cm. Doppler blood flow is normal. No torsion. Left testicle: The left testicle measures 3 x 2.7 x 5.1 cm. Doppler blood flow is normal. There is a small, slightly complex left hydrocele. No torsion. Epididymides: Unremarkable. Scrotum: See above. IMPRESSION: The left testicle measures 3 x 2.7 x 5.1 cm. Doppler blood flow is normal. There is a small, slightly complex left hydrocele. No evidence of torsion. Electronically signed by: Venancio Dominique MD 10/08/24 01:11 AM Abdomen/Pelvis CT 10/07/24 22:34 Exam(s): CT ABDOMEN + PELVIS With Contrast IV Amt: 120 ml optiray 320 EXAM: CT Abdomen and Pelvis With Intravenous Contrast CLINICAL HISTORY: Reason for exam: mid abd pain. TECHNIQUE: Axial computed tomography images of the abdomen and pelvis with intravenous contrast. CTDI is 26.35 mGy and DLP is 2203.85 mGy-cm. Automated exposure control was utilized for the study. A dose lowering technique was utilized adhering to the principles of ALARA. CONTRAST: Patient received 120 ml optiray 320 of IV contrast COMPARISON: No relevant prior studies available. FINDINGS: Lung bases: Unremarkable. No mass. No consolidation. ABDOMEN: Liver: The liver is borderline enlarged measuring 18 cm craniocaudad. No focal liver lesion is seen. Gallbladder and bile ducts: Unremarkable. No calcified stones. No ductal dilation. Pancreas: Unremarkable. No mass. No ductal dilation. Spleen: Unremarkable. No splenomegaly. Adrenals: Unremarkable. No mass. Kidneys and ureters: Kidneys enhance symmetrically with contrast. There is mild left hydronephrosis and hydroureter down to the level of the urinary bladder. No ureteral calculus is seen. There is slight enhancement of the wall of the distal ureters suggesting ascending urinary tract infection. Stomach and bowel: See below. PELVIS: Appendix: The appendix is normal. Bowel loops are nondilated. There is mild diverticulosis of the sigmoid colon without evidence of acute diverticulitis per no acute inflammatory changes are seen involving the bowel. Bladder: The urinary bladder is completely decompressed but otherwise unremarkable. Reproductive: Unremarkable as visualized. ABDOMEN and PELVIS: Intraperitoneal space: Unremarkable. No free air. No significant fluid collection. Bones/joints: Moderate multilevel degenerative changes throughout the spine. No acute fracture or subluxation is seen. Soft tissues: Unremarkable. Vasculature: Unremarkable. No abdominal aortic aneurysm. Lymph nodes: There is a single enlarged retroperitoneal lymph node adjacent to the right kidney measuring 14 mm. This is nonspecific. No other lymphadenopathy or mass is identified. IMPRESSION: 1. The appendix is normal. Bowel loops are nondilated. There is mild diverticulosis of the sigmoid colon without evidence of acute diverticulitis. No acute inflammatory changes are seen involving the bowel. 2. Kidneys enhance symmetrically with contrast. There is mild left hydronephrosis and hydroureter down to the level of the urinary bladder. No ureteral calculus is seen. There is slight enhancement of the wall of the distal ureters suggesting ascending urinary tract infection. 3. There is a single enlarged retroperitoneal lymph node adjacent to the right kidney measuring 14 mm. This is nonspecific. No other lymphadenopathy or mass is identified. Electronically signed by: Venancio Dominique MD 10/08/24 01:15 AM (1) Chest pain Chest pain type: unspecified Qualified Code(s): R07.9 - Chest pain, unspecified
[2024-10-08] MEDS: ONDANSETRON INJ 2 MG/ML 2 ML VIAL IV PRN (14:56)
--- NOTE | 2024-10-08 17:03 | Cardiology Consultation ---
Date of Consultation October 08, 2024 Assessment & Plan (1) Abdominal pain: (2) GERD (gastroesophageal reflux disease): (3) Exertional dyspnea: (4) Exertional angina: (5) CAD (coronary artery disease): (6) Presence of drug-eluting stent in right coronary artery: (7) Hereditary hemochromatosis: Plan 73-year-old man with known CAD and previous RCA revascularizations who had been planned for cardiac catheterization for exertional symptoms, developed acute abdominal symptoms. Given normal troponin and relatively unremarkable ECG in the face of significant abdominal symptoms, doubt that his ongoing complaints are cardiac. Would continue workup of gastrointestinal etiology. However, he does have exertional symptoms which should be evaluated. If he remains free of disabling GI symptoms overnight and shows no evidence of infection (he described fever and chills but has a normal white count and is afebrile), perhaps he could undergo elective cardiac catheterization tomorrow. Did explain that even if he were to have a revascularizable coronary lesion, fixing this would be unlikely to correct the complaints he is presenting with today. As such, he still needs further evaluation of his very lifestyle limiting gastrointestinal symptoms. Will continue to follow along. History of Present Illness Reason for Consultation: dyspnea, cp vs gerd, hx stents x 3 Requesting Physician: Merrill Carrera MD Attending Physician: Merrill Carrera MD History of Present Illness 73-year-old man with CAD (RCA PCI 2004 & 2015), hemochromatosis, DVT/pulmonary embolism (2017) and bladder cancer who was admitted yesterday with recurrent epigastric pain. He was recently evaluated by Jcarlos Mahoney PA-C and felt to have exertional angina, noting both chest tightness and marked dyspnea at higher levels of activity. No rest symptoms, but given lifestyle limiting nature of his symptoms and his known underlying coronary artery disease, outpatient cardiac catheterization was recommended and was in the process of being arranged. Separate from his exertional symptoms, he has had recurrent epigastric pain with nausea and at times fever and chills, after recurrence of the symptoms he was seen at [facility] and evaluated for acute coronary syndrome, ruled out and was discharged next day. Several days later, he noted 2 days of diarrhea followed by recurrence of abdominal discomfort with nausea, fever and chills and is currently admitted. Cardiac evaluation included ECG which showed sinus rhythm at 95 bpm with a minor nonspecific ST abnormality in the anterolateral leads. Compared with prior study this ST abnormality is new but the heart rate was increased by 40 bpm. Troponin x 3 was completely normal. Echocardiogram at [facility] was unremarkable. At the time of my evaluation earlier today, he noted persistent nausea with occasional reflux type discomfort emanating from his epigastrium occasionally upward. He denied any outright anginal chest pain or dyspnea at rest and had no orthopnea, PND, or leg edema. No palpitations or lightheadedness. Telemetry shows sinus rhythm at 60 to 70 bpm and was unremarkable. Allergies Allergy/AdvReac Type Severity Reaction Status Date / Time aspirin Allergy Intermediate Hives Verified 10/02/24 11:02 ibuprofen Allergy Intermediate Hives Verified 10/02/24 11:02 Penicillins Allergy Intermediate Hives Verified 10/02/24 11:02 oxycodone AdvReac Mild Dyspepsia Verified 10/02/24 11:02 Home Medications Medication Instructions Recorded Confirmed Type magnesium 200 mg tablet 400 mg PO QAM 07/05/18 10/08/24 History multivitamin 1 tab PO QAM 07/05/18 10/08/24 History pantoprazole 40 mg tablet,delayed 40 mg PO QAM 07/05/18 10/08/24 History release citalopram 20 mg tablet 20 mg PO QAM 03/26/20 10/08/24 History clopidogrel 75 mg tablet 75 mg PO QAM #90 tabs 07/22/23 10/08/24 Rx atorvastatin 80 mg tablet 80 mg PO HS #90 tabs 11/11/23 10/08/24 Rx metoprolol succinate 25 mg 12.5 mg (1/2 x 25 mg) PO QAM #45 07/05/24 10/08/24 Rx tablet,extended release 24 hr tabs famotidine 20 mg tablet (Pepcid) 20 mg PO BID #180 tabs 09/28/24 10/08/24 Rx nitroglycerin 0.4 mg sublingual 0.4 mg sublingual Q5M PRN chest 10/02/24 10/08/24 Rx tablet (Nitrostat) pain #25 tabs sulfamethoxazole 800 1 tab PO BID 7 days #14 tabs 10/03/24 10/08/24 Rx mg-trimethoprim 160 mg tablet (Bactrim DS) cholecalciferol (vitamin D3) 50 100 mcg PO DAILY 10/08/24 10/08/24 History mcg (2,000 unit) tablet (Vitamin D3) Patient History Medical History History of COVID-19 2022: mild symptoms, resolved 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), no chemo/xrt Arthritis History of kidney stones left side 2018 Left rotator cuff tear Mitral regurgitation Echo 11/2021: Mild MR BPH (benign prostatic hyperplasia) Osteoarthritis Hiatal hernia Deep vein thrombosis LLE DVT/PE (2018) post-op b/l TKA Previous AC discontinued, no issues since Pulmonary embolism LLE DVT/PE (2018) post-op b/l TKA Previous AC discontinued, no issues since Surgical History History of amputation of right index finger 2007 S/P left rotator cuff repair 2023 History of cystoscopy + bladder biopsy (04/02/20): LMA#5, unique at [facility] History of lithotripsy History of cardiac cath 2004- stent x2 2015, stent x1 H/O transurethral resection of prostate 1999 History of surgery Bladder tumor excision Right index finger partial amputation (2/2 trauma) History of Achilles tendon repair Right 1998 History of arthroscopy Right shoulder 2005, right knee 1979, left knee 1985 History of ankle joint replacement Right 2018 History of total knee replacement B/L TKA (Done under [place], Plavix only held 5 days prior to surgery per cardiology recommendations) History of esophagogastroduodenoscopy (EGD) History of colonoscopy History of tonsillectomy 1956 History of eye surgery 1960 Family History Mother Family history of diabetes mellitus Brother Family history of diabetes mellitus Family/Other Cardiac disorder Hypertension Father Myocardial infarction Other No family history of adverse response to anesthesia Denies family history of Ovarian cancer Prostate cancer Breast cancer Colorectal cancer Social History Smoking Status: Former smoker Tobacco Type: Cigarettes Age Started Using Tobacco: 13; Age Quit Using Tobacco: 23; packs per day: 0.25; Second Hand Exposure: No; Do You Dip or Chew Tobacco: No; Hx Alcohol Use: No Hx Substance Use: No Preferred Language: Nepali Communication Ability: Effective Visual Impairment: No Limitations [employer] Supervisor Required: No Beliefs That Will Affect Care: None marital status: Current Living Situation: Spouse current occupational status: retired Other Information That Helps Us Care for You: No Feels Safe at Home: Yes Safety Concerns: Feels Safe At This Time Diet: regular Diet Comment: regular caffeine: Yes during the past year weight has: remained stable Dental Care, Regularly: Yes Physical Activity Frequency: Daily Seatbelt Use: always Sunscreen Use: No Assistive Devices: Glasses and Hearing Aid - Bilateral Physical Exam Physical Exam: Adult white male appears mildly uncomfortable but in no acute distress. Normotensive. Pulse 67 bpm regular. Respirations 16 and unlabored. Skin: no ecchymoses or generalized lesions. HEENT: unremarkable. Neck: JVP at the clavicle at 90 degrees, no carotid bruits. Lungs: clear. Cardiac: regular rhythm, normal S1-2, no murmur. Abdomen: benign. Nondistended and nontender. Extremities: no edema, pulses intact. Neurologic: normal affect and conversation, nonfocal. Results & Data Vital Signs (Past 12 Hours) Vital Signs Temp Pulse Pulse Resp BP Pulse Ox O2 Del Method 10/08/24 14:56 98.1 F 67 16 136/79 96 Room Air 10/08/24 13:55 77 10/08/24 11:30 98.8 F 78 20 130/71 95 Room Air 10/08/24 07:19 75 10/08/24 07:16 69 Laboratory Results WBC 4.69, hemoglobin and platelet count normal. Normal electrolytes, BUN 13, creatinine 1.05. Troponin values were 3.5, 4.2, and 4.2. Diagnostic Findings CT angiogram at [facility] showed no pulmonary embolism. Chest CT here showed moderate coronary calcification involving the LAD and right coronary and again showed no pulmonary embolism. PG Care Time/CCT Total # of Minutes Spent Total Time Spent with Patient: Total time spent is greater than 50% in coordination of care (as documented) at patient's floor/unit and/or counseling patient: Coding Level of Care Code 50873 IN/OBS CONSULT LVL 4,60M Diagnoses Abdominal pain R10.9 GERD (gastroesophageal reflux disease) K21.9 Exertional dyspnea R06.09 Exertional angina I20.89 Coronary artery disease involving [place] coronary artery of [place] heart without angina pectoris I25.10 Associated angina: without angina Coronary Disease-Associated Artery/Lesion type: [place] artery [place] vs. transplanted heart: [place] heart Presence of drug-eluting stent in right coronary artery Z95.5 Hereditary hemochromatosis E83.110 (5) CAD (coronary artery disease) Associated angina: without angina Coronary Disease-Associated Artery/Lesion type: [place] artery [place] vs. transplanted heart: [place] heart Qualified Code(s): I25.10 - Atherosclerotic heart disease of [place] coronary artery without angina pectoris
[2024-10-09 06:52] LABS: Basophils # (auto) 0.03 K/uL (0.00-0.20); Basophils % (auto) 0.6 %; Eosinophils # (auto) 0.21 K/uL (0.00-0.50); Eosinophils % (auto) 4.5 %; Hematocrit (blood only) 42.6 % (42.0-52.0); Hemoglobin 14.4 g/dl (14.0-18.0); Immature Granulocytes # (auto) 0.01 K/uL (0.01-0.20); Immature Granulocytes % (auto) 0.2 %; Lymphocytes # (auto) 0.73 K/uL (1.20-3.40); Lymphocytes % (auto) 15.5 %; Mean Corpuscular Hemoglobin 32.4 pg (25.0-34.0); Mean Corpuscular Hgb Conc 33.8 g/dL (32.0-36.0); Mean Corpuscular Volume 95.9 fL (80.0-100.0); Mean Platelet Volume 11.5 fL (9.4-12.4); Monocytes # (auto) 1.12 K/uL (0.11-0.59); Monocytes % (auto) 23.8 %; Neutrophils % (auto) 55.4 %; Platelet Count 176 K/uL (130-400); RDW Coefficient of Variation 12.5 % (11.5-14.5); RDW Standard Deviation 43.9 fL (36.4-46.3); Red Blood Count 4.44 M/uL (4.70-6.10)
[2024-10-09 07:03] LABS: BUN Creatinine Ratio 13.6 (10-20); C Reactive Protein 9.3 mg/dl (0-0.5); Calcium 9.1 mg/dl (8.6-10.3); Creatinine Clr Calc Pharmacy 67.9 ml/min; Potassium 4.8 mmol/L (3.5-5.1)
--- NOTE | 2024-10-09 08:36 | Hospitalist Progress Note ---
Date of Service October 09, 2024 Assessment & Plan (1) Abdominal pain: (2) GERD (gastroesophageal reflux disease): (3) Chest pain: (4) Exertional dyspnea: (5) Hematuria: (6) Hydronephrosis: (7) Fever and chills: Plan Patient is a 73 y/o male With a past medical history of transitional cell carcinoma bladder s/p BCG treatment 2 years ago, DVT/PE in 2018 provoked by surgery, CAD s/p RCA PCI x 3 in 2003 in 2015, GERD, depression, BPH, hypertension. He was recently hospitalized at [facility] for a chest pain workup that was essentially negative. He presented to the ED due to ongoing epigastric pain, dyspnea, and scrotal pain. He was admitted to the hospital due to concerning cardiac history requiring stents (cardiology consulted on admission, significant GI symptoms limiting his lifestyle (GI consulted on admission), urology also consulted due to hematuriaworkup can be done outpatient. #Abdominal pain / GERD Patient with severe epigastric pain for several weeks along with dyspepsia and flatulence. History of GERD CTAP showed no acute changes of bowel, mild diverticulosis without diverticulitis IV Pepcid 20 mg twice daily, Carafate 1 GM 4 times daily, IV pantoprazole daily, Zofran and Tylenol as needed GI consulted wanted cardiac workup completed prior to GI intervention; awaiting further eval/recommendations #Chest pain / Exertional dyspnea History of CAD s/p RCA PCI x 3 in 2003 and [address]. [address] Mahmood outpatient who referred patient for heart cath 10/02/24 Chest pain more related to GERD above however dyspnea on exertion since similar to when patient previously needed stents Echo 10/05/2024 essentially negative, grade 1 diastolic dysfunction; CTA on admission showed moderate coronary calcifications in LAD and RCA along with mild hilar lymphadenopathy (nonspecific); Troponin negative x 3, EKG NSR no ischemic changes Continue Plavix 75 mg daily, continue atorvastatin 80 mg daily, continue metoprolol 12.5 mg daily (he he is not a candidate for aspirin which caused hives) Cardiology consulted -- cardiac cath 10/09/24 patent large vessels with mild to moderate nonocclusive disease; cardiology feels this is unlikely to correct the complaints he presented with and still needs further evaluation of his significant GI symptoms #Hematuria / Hydronephrosis Patient with history of transitional cell cancer of bladder s/p BCG treatment approximately 2 years ago; scheduled for repeat cystoscopy in April 2025, now will likely have it moved up within next 1 month Patient denies gross hematuria however hematuria noted on UA Intermittent scrotal pain however Scrotal ultrasound essentially negative, left hydrocele -- no evidence of orchitis, epididymitis, or testicular torsion CTAP showed mild left hydronephrosis and hydroureter down to the level of urinary bladder along with slight enhancement of wall of distal ureter suggesting ascending urinary tract infection Patient was on Bactrim due to 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 however reported UA negative in office on Wednesday; Bactrim discontinued on admission as asymptomatic and UA negative; Repeat urine culture pending Urology consulted can arrange outpatient cystoscopy within next month #Fever and chills Patient with intermittent fevers, chills, cough, body aches for multiple weeks; Recent TSH WNL, BioFire negative, tick panel negative CRP acutely elevated at 9.30, ESR normal at 15; Chest CTA noted mild hilar lymphadenopathy bilaterally; remains afebrile without leukocytosis Will add on peripheral smear to AM labs for further investigation Tylenol and Tessalon Perle as needed Chronic stable diagnoses: Depression continue citalopram HTN Continue metoprolol BPH currently not in retention, bladder scan as needed, straight cath as needed Hx PE and DVT provoked 2/2 surgery in 2018, was on Xarelto however no longer requires VTE ppx: SCDs - defer chemical ppx with hematuria and possible surgical intervention Dispo: continue inpatient stay while awaiting GI next steps Updated at bedside Admission and Anticipated Discharge Date Admission Date: October 08, 2024 Supervising Physician Co-Signing Physician Notes Attending Attestation - Chart reviewed, care plan d/w OPHELIA Solitario. I agree w/ the montes components of her documentation. Appreciate urology, GI, and cardiology consultations. Cath results noted - extensive CAD in numerous vessels but nonobstructive at this time; no stents deployed. Await next steps from GI. Mild leukopenia, hilar lymphadenopathy, 14mm retroperitoneal lymph node near R right kidney --> etiology?? Agree with starting with peripheral smear. Consider heme/onc referral after d/c for further w/u. Merrill Carrera MD Subjective Patient seen and evaluated at bedside with his present. He had cardiac catheterization earlier today, no new stents placed. Currently, he reports feeling fairly well overall. He describes his abdominal symptoms currently as "like when you drink a big slug of whiskey on an empty stomach and feel warm and a little queasy." He denies nausea at this time and actually reports feeling hungry. States his diarrhea has resolved with more formed stools now. He has not been seen by GI yet today; he is eager for their input. No additional complaints or concerns at this time. Physical Exam Physical Exam: General: No acute distress, nondiaphoretic, well-developed, well-nourished. Cardiac: Regular rate and rhythm without murmurs gallops or rubs. Pulm: Clear to auscultation bilaterally without wheezes, rales or rhonchi. No respiratory distress. 96% on room air. Abdominal: Soft, nondistended, nontender. Bowel sounds present. Neuro: A&O x3. No focal neurological deficits. Results & Data Results & Data Vital Signs (Past 12 Hours) Vital Signs Temp Pulse Pulse Resp BP Pulse Ox O2 Del Method 10/09/24 07:44 98.4 F 66 18 129/74 96 Room Air 10/09/24 07:00 78 10/09/24 04:01 98.6 F 79 16 115/65 99 Room Air 10/08/24 23:01 97.9 F 66 16 101/63 96 Room Air 10/08/24 21:50 68 Laboratory Results Reviewed CBC with differential/ESR Reviewed BMP/CRP/mag PG Care Time/CCT Total # of Minutes Spent Total Time Spent with Patient: Total time spent is greater than 50% in coordination of care (as documented) at patient's floor/unit and/or counseling patient: Coding Level of Care Code 16736 SUB INP/OBS CARE 3/50MIN Diagnoses Abdominal pain R10.9 GERD (gastroesophageal reflux disease) K21.9 Chest pain R07.9 Chest pain type: unspecified Exertional dyspnea R06.09 Hematuria R31.9 Hydronephrosis N13.30 Fever and chills R50.9 (3) Chest pain Chest pain type: unspecified Qualified Code(s): R07.9 - Chest pain, unspecified
--- NOTE | 2024-10-09 10:50 | Pre Anesthesia Assessment ---
Date of Service October 09, 2024 Pre Sedation Assessment Vital Signs Temp Pulse Pulse Resp BP Pulse Ox O2 Del Method 10/09/24 10:31 61 16 130/69 96 Room Air 10/09/24 07:44 36.9 C 66 18 129/74 96 Room Air 10/09/24 07:00 78 10/09/24 04:01 37 C 79 16 115/65 99 Room Air 10/08/24 23:01 36.6 C 66 16 101/63 96 Room Air 10/08/24 21:50 68 10/08/24 19:20 37.4 C 71 16 126/75 96 Room Air 10/08/24 14:56 36.7 C 67 16 136/79 96 Room Air 10/08/24 13:55 77 10/08/24 11:30 37.1 C 78 20 130/71 95 Room Air Cardiovascular RRR, no murmur, no edema Respiratory normal respiratory effort, lungs clear to auscultation Pre-Sedation Airway Assessment Smoking Status: Former smoker Short, Thick Neck: No Thyromental Distance: > or= 3.5 Finger Breadths Oral Cavity: + WNL Mallampati Class: III ASA: ASA3 NPO Status Date of Last Intake of Fluids: 10/08/24 Time of Last Intake of Fluids: 19:00 Date of Last Intake of Solid Food: 10/08/24 Time of Last Intake of Solid Foods: 19:00 Notes The planned sedation has been discussed with the patient. Informed Consent was obtained. I have identified the patient, determined the appropriateness of sedation and have assessed the patient immediately prior to the procedure. All medicine(s) and interventions are by my order.
[2024-10-09] MEDS: MIDAZOLAM HCL 1 MG/ML 2ML VIAL ONE (11:34)
[2024-10-09] MEDS: HEPARIN (PORCINE) 1000 UNIT/ML 10 ML (CATH LAB USE ONLY) ONE (11:34)
[2024-10-09] MEDS: fentaNYL citrate PF 100 MCG/2 ML VIAL ONE (11:34)
[2024-10-09] MEDS: niCARdipine 2,000 MCG/20 ML SYR ONE (11:35)
[2024-10-09] MEDS: NITROGLYCERIN/D5W 100MCG/ML 20ML SYR ONE (11:35)
[2024-10-09] MEDS: OPTIRAY 350 ONE (11:35)
--- NOTE | 2024-10-09 11:48 | Post Anesthesia Assessment ---
Date of Service October 09, 2024 Post Sedation Assessment Vital Signs Temp Pulse Pulse Resp BP Pulse Ox O2 Del Method 10/09/24 10:31 61 16 130/69 96 Room Air 10/09/24 07:44 36.9 C 66 18 129/74 96 Room Air 10/09/24 07:00 78 10/09/24 04:01 37 C 79 16 115/65 99 Room Air 10/08/24 23:01 36.6 C 66 16 101/63 96 Room Air 10/08/24 21:50 68 10/08/24 19:20 37.4 C 71 16 126/75 96 Room Air 10/08/24 14:56 36.7 C 67 16 136/79 96 Room Air 10/08/24 13:55 77 Recovery Score Activity: Moves 4 extremities Respiration: Deep Breath/Cough Circulation: +/-20% PreAnes Value Consciousness: Fully Awake Oxygen Saturation: > 92% On Room Air Discharge Sedation Level of Care: Fast Track Phase II Post Sedation Plan On clinical assessment, the patient appears to have tolerated the sedation without complications. Patient is recovering as anticipated. Patient will continue to be monitored by nursing and may be discharged when sedation discharge criteria are met per below protocol. Upon Completions of procedure up to 15 minutes continue every 5 minute vital signs and the P.A.R. score; then discharge to a Phase I or Fast Track to Phase II per the following guidelines: * Discharge Patient to appropriate Phase II area if PAR is 8 or greater or return to pre- procedure baseline. The post - procedure orders will be as directed. * If PAR score is less than 8 or not return to pre-procedure baseline then patient will follow Phase I monitoring till PAR is reached for Phase II. The Phase I may be done in procedure room or may call to secure a Phase I area. * If naloxone or flumazenil are used for reversal, hold in Phase I for continued monitoring from when last reversal dose was given for a minimum of 60 minutes or longer pending the nurse and/or physician discretion of patient condition before discharge to Phase II. Please call the Sedation Physician to re-evaluate and complete post-note for discharge to Phase II area. Do NOT discharge from procedure sedation or Phase 1 until post- sedation evaluation note is complete by procedure /sedation MD Sedation Discharge Instructions to be given to the patient at discharge to home. [facility] Procedure Codes (Charges) Indication for Procedure Indication for procedure: chest pain h/o CAD Sedation/Anesthesia Procedure 1: Sedation/Anesthesia: 57003 Mod Sedation by the same physician;Init15 Min Child Age 5 & Up (initial 15 min, start 1112) Total Sedation Time (minutes): 24 Procedure 2: Sedation/Anesthesia: 11883 Mod Sedation by the same physician; Ea [id number] Minutes (additional 9 min, end 1136)
--- NOTE | 2024-10-09 12:23 | Cardiac Catheterization ---
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 Clinical evaluation leading to the procedure CAD Presenation: Unstable angina Anginal Classification: CCS IV Heart Failure: No Cardiogenic Shock within 24 Hours: No Cardiac Arrest within 24 Hours: No Imaging Studies Past 6 Months: No Stress Studies Past 6 Months: No Coronary Anatomy Dominant: Right Left Main (% Stenosis): Normal LAD (% Stenosis): Ostial (30%), Proximal (40 to 50%) and Mid D1 (% Stenosis): Normal D2 (% Stenosis): Normal D3 (% Stenosis): Normal Circumflex (% Stenosis): Normal OM1 (% Stenosis): Normal OM2 (% Stenosis): Proximal (80%, small caliber) RCA (% Stenosis): Proximal (50 to 70% then 30 to 40%), Mid (Stent patent. 20% in-stent restenosis, distal edge 20%), Distal (Stent patent, in-stent restenosis along 30 to 40%, distal stent edge 50%) and Normal (iFR 0.98, 0.98, 0.97. Not hemodynamically significant) R PDA (% Stenosis): Ostial (50 to 60%) and Proximal (50 to 60%) R PL1 (% Stenosis): Normal Diagnostic Physicians Name: Marcos Swanson MD, PhD Closure Device Recommendations: Medical Therapy and/or Counseling Intraprocedure Events Significant Disection: No Perforation: No Cardiac Cath Procedure Full Procedure Date October 09, 2024 Pre-Procedure Diagnosis Pre-Procedure Diagnosis: Angina AUC Score AUC Score: 07 Post-Procedure Diagnosis Post-Procedure Diagnosis: Moderate CAD Procedure(s) Performed Procedure(s) Performed: Coronary Angiography and Fractional Flow [place] [employer]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 Sedated using IV Versed and fentanyl. Soft tissues of the right wrist were anesthetized using 2 mL of 1% Xylocaine. The right radial artery was accessed with modified Seldinger technique and a 6 [place] radial artery glide sheath was placed. Patient was provided anticoagulation with IV heparin and antispasmodics including nicardipine and nitroglycerin. All catheters were advanced and exchanged over a 0.035 J-tip wire. Left coronary angiography was performed in orthogonal views with a 5 [place] 4 diagnostic catheter. Right coronary angiography was performed in orthogonal views with a 5 [place] 4 diagnostic catheter. Diagnostic catheter was removed. Decision was made to proceed with IFR analysis of the RCA. Additional heparin was provided. A 6 [place] JR4 guide catheter was used to engage the right coronary. Omni Doppler wave wire was advanced and positioned with its transducer just distal to the guide catheter tip. System was flushed with normal saline and then the pressures were equalized. Guidewire was then advanced (with some difficulty secondary to tortuosity and calcium) distally but not into the distal branch vessels. IFR was not sampled 3 times. The guidewire was then removed and final angiographic evaluation was performed. Guide catheter was removed. The radial sheath was removed. Hemostasis was obtained using the TR band. Patient was hemodynamically stable and asymptomatic. He was returned to the recovery area. This ended the case. Coronary angiography findings: BNU-gbrqz-sdmoyiu vessel trifurcating into LAD, circumflex, and ramus. No more than mild luminal irregularities. ZTF-qalqn-uburidp and transapical vessel. Ostially there is 30% stenosis. Proximal segment has diffuse mild calcification and up to 40 to 50% stenosis. Mid segment has an old stent or calcification. No significant stenosis. Distal vessel has scattered mild plaques of less than 20%. There is a small second diagonal as well as a small third diagonal. The first diagonal is medium to large without significant disease. The ostium of the septal branch has 70% narrowing. This may be jailed from prior stent. SWv-ptfnv-rqodtwg nondominant vessel. Travels in the AV groove giving a small to medium caliber OM 2. Terminates with this vessel that has 80% stenosis. This vessel is too small for PCI. OM1/ramus-this vessel arises in the earliest part of or shares the ostium with the circumflex. It is large in caliber and bifurcates. No angiographically significant disease. Circumflex also provides atrial branch. RCA-this is large caliber and dominant. Proximal ballesteros's crook shaped vessel. At that level there is a 50 to 70% hazy lesion with some calcification. Then there is diffuse mild disease in the proximal segment up to 30 to 40% just before the large RV marginal branch. The the mid RCA has a previous stent which is patent. 20% in-stent restenosis followed by a 20% lesion before it transitions to the distal RCA. Distally, there is a long in-stent restenosis of up to 30 to 40%. After stent there is calcified 50% stenosis. RCA gives a large PDA that has a single branch and a large posterolateral which has multiple branches. Posterolateral has diffuse luminal irregularities. The PDA has an ostial 50 to 60% stenosis and then a proximal 50 to 60% stenosis. MAK-3 flow. IFR of RCA (PDA unable to be evaluated)-0.98, 0.98, 0.97. Therefore, the RCA does not he have hemodynamically significant stenosis. No evidence of dissection or perforation post IFR analysis MAK-3 flow post IFR analysis Summary: 1. Patent prior stents with mild to moderate in-stent restenosis. 2. Mild to moderate nonocclusive coronary disease in the large epicardial vessels. Severe branch vessel disease (septal, OM 2 which are not appropriate for PCI). 3. IFR analysis of the worst appearing lesions of the RCA demonstrate that this is not hemodynamically significant. This is despite a series of lesions. 4. Recommend medical management. Titration of antianginal regimen. 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 Any exceptions are noted below. [facility] Card Cath Procedure Codes Cardiac Catheterization Procedure 1: Cardiovascular Cath Procedures: 98437 Coronaries Procedure 2: Cardiovascular Cath Procedures: 91724 (Doppler) Pressure Wire Moderate Sedation Procedure 1: Sedation/Anesthesia: 30228 Mod Sedation by the same physician;Init15 Min Child Age 5 & Up (Initial 15 minutes, start time 1112) Procedure 2: Sedation/Anesthesia: 57855 Mod Sedation by the same physician; Ea [id number] Minutes (Additional 9 minutes, end time 1136) PG Care Time/CCT Total # of Minutes Spent Total Time Spent with Patient: Total time spent is greater than 50% in coordination of care (as documented) at patient's floor/unit and/or counseling patient:
--- NOTE | 2024-10-09 13:39 | Cardiology Progress Note ---
Date of Service October 09, 2024 Assessment & Plan (1) CAD (coronary artery disease): Plan: Status post catheterization. Patent stents. Mild to moderate nonocclusive coronary disease in the major epicardial vessels by catheterization today. iFR negative for hemodynamic significance. He may have some stable angina from his small vessel disease or even microvascular disease. We will titrate his medical regimen with regard to antianginals. (2) Hyperlipidemia: Plan: Patient is high risk. High intensity statin therapy is recommended. He has been on a atorvastatin 80 mg daily. (3) Hypertension: Plan: Blood pressure is at target. Continue home regimen including metoprolol succinate ER 25 mg one half tab daily. If his blood pressure and heart rate would allow then I would increase this further as an outpatient. Alternatively, if his heart rate would not allow but his blood pressure becomes elevated I would consider an long-acting nitrate, Norvasc, or angiotensin receptor anu. The first 2 would be more appropriate for anginal relief. (4) Abdominal pain: Plan: Angina does not cause abdominal pain and diarrhea. He did have stable angina which we will be working on. As noted on his CT scan that he has evidence of UTI. He should also finish GI evaluation per gastroenterology. I suspect he may have a GI virus. He also has a known hiatal hernia and may have significant GERD plus esophageal spasm. If he is not to undergo EGD or colonoscopy at this time then he should be restarted on his Plavix. Admission and Anticipated Discharge Date Admission Date: October 08, 2024 Subjective I have seen the patient today before and during his catheterization. 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 Decision was made at that time for the patient to undergo definitive evaluation by coronary angiography given the patient's high pretest probability of coronary disease (prior stenting). However, last week the patient developed abdominal discomfort which was very severe with associated heartburn, nausea, and diarrhea. He had evaluation at the [facility] where he had no evidence of acute coronary syndrome or myocardial infarction. He tells me he was given some GI medications which seem to help. He was then discharged but he has had intermittent chest discomfort since that time. On Wednesday he again had a severe episode of abdominal discomfort with diarrhea and the chest pain was burning. He tells me this is different than his exertional anginal pain. He again was admitted and cardiac troponins were negative. EKG without ischemic changes. He has been seen by gastroenterology who wished that his cardiac workup be completed before further GI evaluation was undertaken. Therefore, the patient went down earlier today for cardiac catheterization. This revealed patent large vessels with mild to moderate nonocclusive disease. The worst lesions were evaluated by Doppler wave wire analysis and found not to be hemodynamically significant. He does have some small vessels with severe disease which certainly can explain his typical exertional angina. He has no evidence of acute coronary syndrome at this time. Review of Systems Review of Systems: Negative except as per HPI Physical Exam Constitutional: WD/WN, vitals as above (Elderly) Eyes: Extraocular muscles intact. Sclera are anicteric. ENMT: Oral mucosa was pink and dry Neck: No JVD Respiratory: Clear to auscultation bilaterally. No wheezing, rhonchi, or rales. Cardiovascular: Regular rate and rhythm. S4 gallop. No rubs or murmurs appreciated. Musculoskeletal: no cyanosis or clubbing, extremities motor strength 5/5 Neurologic: Mildly diminished hearing. Cognition is intact and speech is fluent. No focal deficits. Ambulates normally. Psychiatric: A+Ox3, euthymic affect Results & Data Vital Signs (Past 12 Hours) Vital Signs Temp Pulse Pulse Resp BP Pulse Ox O2 Del Method 10/09/24 12:17 62 18 111/75 95 Room Air 10/09/24 12:02 62 18 119/72 94 Room Air 10/09/24 11:47 64 18 118/66 95 Room Air 10/09/24 10:31 61 16 130/69 96 Room Air 10/09/24 07:44 36.9 C 66 18 129/74 96 Room Air 10/09/24 07:00 78 10/09/24 04:01 37 C 79 16 115/65 99 Room Air PG Care Time/CCT Total # of Minutes Spent Total Time Spent with Patient: Total time spent is greater than 50% in coordination of care (as documented) at patient's floor/unit and/or counseling patient: Coding Level of Care Code 47263 SUB INP/OBS CARE 235MIN Diagnoses Coronary artery disease involving [place] coronary artery of [place] heart without angina pectoris I25.10 Coronary Disease-Associated Artery/Lesion type: [place] artery [place] vs. transplanted heart: [place] heart Associated angina: without angina Hyperlipidemia, unspecified hyperlipidemia type E78.5 Hyperlipidemia type: unspecified Primary hypertension I10 Hypertension type: primary hypertension Abdominal pain R10.9 (1) CAD (coronary artery disease) Coronary Disease-Associated Artery/Lesion type: [place] artery [place] vs. transplanted heart: [place] heart Associated angina: without angina Qualified Code(s): I25.10 - Atherosclerotic heart disease of [place] coronary artery without angina pectoris (2) Hyperlipidemia Hyperlipidemia type: unspecified Qualified Code(s): E78.5 - Hyperlipidemia, unspecified (3) Hypertension Hypertension type: primary hypertension Qualified Code(s): I10 - Essential (primary) hypertension
[2024-10-09] MEDS: POLYETHYLENE (MIRALAX) 17 GM PACK PO PRN (18:13)
[2024-10-09] MEDS: MAGNESIUM HYDROXIDE SUSP 30 ML UDC PO PRN (20:52)
[2024-10-10 07:26] LABS: Basophils # (auto) 0.04 K/uL (0.00-0.20); Basophils % (auto) 0.8 %; Eosinophils # (auto) 0.42 K/uL (0.00-0.50); Eosinophils % (auto) 8.2 %; Hematocrit (blood only) 41.7 % (42.0-52.0); Hemoglobin 14.7 g/dl (14.0-18.0); Immature Granulocytes # (auto) 0.01 K/uL (0.01-0.20); Immature Granulocytes % (auto) 0.2 %; Lymphocytes # (auto) 1.12 K/uL (1.20-3.40); Lymphocytes % (auto) 21.9 %; Mean Corpuscular Hemoglobin 33.9 pg (25.0-34.0); Mean Corpuscular Hgb Conc 35.3 g/dL (32.0-36.0); Mean Corpuscular Volume 96.3 fL (80.0-100.0); Mean Platelet Volume 11.4 fL (9.4-12.4); Monocytes # (auto) 1.29 K/uL (0.11-0.59); Monocytes % (auto) 25.2 %; Neutrophils # (auto) 2.24 K/uL (1.40-6.50); Neutrophils % (auto) 43.7 %; Platelet Count 185 K/uL (130-400); RDW Coefficient of Variation 12.3 % (11.5-14.5); RDW Standard Deviation 43.8 fL (36.4-46.3); Red Blood Count 4.33 M/uL (4.70-6.10); White Blood Count 5.12 K/ul (4.8-10.8)
--- NOTE | 2024-10-10 08:12 | Hospitalist Progress Note ---
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 He was recently hospitalized at [facility] for a chest pain workup that was essentially negative. He presented to the ED due to ongoing epigastric pain, dyspnea, and scrotal pain. He was admitted to the hospital due to concerning cardiac history requiring stents (cardiology consulted on admission, significant GI symptoms limiting his lifestyle (GI consulted on admission), urology also consulted due to hematuriaworkup can be done outpatient. #Abdominal pain / GERD Patient with severe epigastric pain for several weeks along with dyspepsia and flatulence. Hx GERD CTAP showed no acute changes of bowel, mild diverticulosis without diverticulitis GI consulted wanted cardiac workup completed prior to GI intervention; awaiting further eval/recommendations. See CP below In meantime, continues on pepcid BID (converting to PO BID from IV), Carafate 1 GM 4 times daily, IV pantoprazole daily --> will increase PPI to BID for now Norvasc 5mg PO daily for HTN/esophageal spasm - BP 118/79 this morning but 131/81 at present and monitor to increase Zofran and Tylenol as needed GI plans for EGD in AM. NPO at midnight See below regarding benzo use (2) GERD (gastroesophageal reflux disease): Plan: as above, PPI increased to BID. Pepcid converted to PO BID for now, remains on carafate. No recent heavy NSAID use but did report aleve about 2x/wk. Not able to tolerate ibuprofen in past or aspirin/not taking. NPO at midnight for EGD in AM w/ GI (3) Chest pain: Plan: Hx CAD s/p RCA PCI x 3 in 2003 and 2015[address] Mahmood outpatient who referred patient for heart cath 10/02/24 Chest pain more related to GERD above however dyspnea on exertion since similar to when patient previously needed stents Echo 10/05/2024 essentially negative, grade 1 diastolic dysfunction; CTA on admission showed moderate coronary calcifications in LAD and RCA along with mild hilar lymphadenopathy (nonspecific); Troponin negative x 3, EKG NSR no ischemic changes Continue Plavix 75 mg daily, continue atorvastatin 80 mg daily, continue metoprolol 12.5 mg daily (he he is not a candidate for aspirin which caused hives) Cardiology consulted -- cardiac cath 10/09/24 patent large vessels with patent prior stents (noting mild-moderate in-stent restenosis), mild to moderate nonocclusive disease -- cardiology feels this is unlikely to correct the complaints he presented with and still needs further evaluation of his significant GI symptoms *Also notable had been weaning off his alprazolam about 8 wks ago c/w timing for symptoms. He had cut from 0.5mg to 0.25mg x 2 weeks then cold turkey stopped. 0.25mg PO x 1 ordered and monitoring response. If improvement/resolution in sx would consider reumption lower dose and SLOW taper w/ PCP monitoring as had been on the alprazolam for ~15 years for patient. (4) Exertional dyspnea: Plan: cath negative for need for stent. on RA. No pleuritic pain/pain with inspiration. PPI/H2/carafate as above, EGD in AM for eval. Norvasc started/titrate as able. (5) Hematuria: Plan: #Hematuria / Hydronephrosis Patient with history of transitional cell cancer of bladder s/p BCG treatment approximately 2 years ago; scheduled for repeat cystoscopy in April 2025, now will likely have it moved up within next 1 month Patient denies gross hematuria however hematuria noted on UA Intermittent scrotal pain however Scrotal ultrasound essentially negative, left hydrocele -- no evidence of orchitis, epididymitis, or testicular torsion CTAP showed mild left hydronephrosis and hydroureter down to the level of urinary bladder along with slight enhancement of wall of distal ureter suggesting ascending urinary tract infection Patient was on Bactrim due to potential UTI [employer]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 however reported UA negative in office on Wednesday; Bactrim discontinued on admission as asymptomatic and UA negative; No further hematuria reported per patient since moving his bowels Repeat urine culture preliminary WITHOUT GROWTH, no abx at this time Peripheral smear not suggestive any blasts/toxic vacuolation/etc, consider heme/onc ref in f/u Urology consulted can arrange outpatient cystoscopy within next month (6) Hydronephrosis: Plan: as above, plan for urology f/u (7) Fever and chills: Plan: #Fever and chills Patient with intermittent fevers, chills, cough, body aches for multiple weeks; Recent TSH WNL, BioFire negative, tick panel negative CRP acutely elevated at 9.30, ESR normal at 15; Chest CTA noted mild hilar lymphadenopathy bilaterally; remains afebrile without leukocytosis peripheral smear pending -- no acute finding noted -- rec consider ref hem/onc after dc (noting 14mm retroperitoneal lymph node near R kidney) Tylenol and Tessalon Perle as needed as above, ongoing for multiple weeks in setting of titrating off his alprazolam and could have been having withdrawal monitor response to resumption of low dose alprazolam 0.25mg PO x 1, will schedule low dose daily Plan Chronic stable diagnoses: Depression continue citalopram, recently stopped his alprazolam as above, suspect withdrawal could be contributing HTN Continue metoprolol, BPH currently not in retention, bladder scan as needed, straight cath as needed Hx PE and DVT provoked 2/2 surgery in 2018, was on Xarelto however no longer requires VTE ppx: SCDs - defer chemical ppx with hematuria and EGD for AM. Dispo: continue inpatient stay, NPO at midnight for EGD in AM. Rx for PPI BID, carafate, other pending EGD results. Resume low dose alprazolam/monitor response Updated at bedside / Admission and Anticipated Discharge Date Admission Date: October 09, 2024 Supervising Physician Co-Signing Physician Notes The patient was not seen by me. The chart was reviewed. Case discussed with OPHELIA Candelaria. Agree with assessment and plan Subjective Eval this morning, /niece in room. Ongoing epigastric discomfort but not as bad as prior. Plans for EGD in AM. No hx gastric ulcer but did have discomfort when drank beer in the past. Notable aleve about 2 tablets in a week but no excssive use. No significant hematuria, did have large BM. ALternating diarrhea/constipation at times. Discussed amlodipine/possible increase for esophageal spasms/monitoring EGD results. Notable he has been having sx since about the end of winter, also at that time was titrating himself off his alprazalam that he had been taking 0.5mg for about 15 years and developed GI upset while titrating off but he did report cutting to 0.25mg for about 2 weeks then quitting cold turkey but did ask multiple providers in the past if could be contributing and no one really took him seriously? Discussed 0.25mg PO x 1/monitor response but if helpful would resume and consider titrating SLOWER, possible q2d with close supervising but resume likely 0.25mg PO in the meantime. He reports wanting to have come off that medication to avoid need for monthly urine checks for drug screening and not wanting to be on this medication any llonger but also noted he did have difficulty titrating off. RN to give PO dose now, NPO at midnight for EGD. Will increase his PPI to BID in meantime for this evening, remains on pepcid/carafate. Physical Exam 2 Physical Exam: General: 73yo male sitting up in bed, NAD, /family at bedside HEENT: head atraumatic, normocephalic, mmm, trachea midline Resp: even/unlabored, no wheezing/rales, on room air CV: RRR, no significant m/r/g, no pitting edema, calves nontender GI: +BS, soft/no overt tenderness but occasional cramping/epigastric/chest discomfort deep to sternum reported no hughes, no further hematuria reported MSK/Neuro: nonfocal, not confused, answering questions appropriately Psych: AOx3, cooperative with exam Results & Data Results & Data Vital Signs (Past 12 Hours) Vital Signs Temp Pulse Resp BP Pulse Ox O2 Del Method 10/10/24 07:41 36.7 C 74 17 118/79 96 Room Air 10/10/24 02:48 36.6 C 87 17 119/79 94 Room Air 10/09/24 22:30 36.4 C L 76 20 119/77 95 Room Air Laboratory Results 10/10/24 06:56 10/10/24 06:59 TSH 6.496 T4 0.90 T3 3.13 PG Care Time/CCT Total # of Minutes Spent Total Time Spent with Patient: Total time spent is greater than 50% in coordination of care (as documented) at patient's floor/unit and/or counseling patient: Coding Level of Care Code 00600 SUB INP/OBS CARE 3/50MIN Diagnoses Abdominal pain R10.9 GERD (gastroesophageal reflux disease) K21.9 Chest pain R07.9 Chest pain type: unspecified Exertional dyspnea R06.09 Hematuria R31.9 Hydronephrosis N13.30 Fever and chills R50.9 (3) Chest pain Chest pain type: unspecified Qualified Code(s): R07.9 - Chest pain, unspecified
[2024-10-10] MEDS: amLODIPine BESYLATE 5 MG TAB PO SCH (09:10)
[2024-10-10 09:13] LABS: BUN Creatinine Ratio 15.7 (10-20); Calcium 9.1 mg/dl (8.6-10.3); Creatinine Clr Calc Pharmacy 61.7 ml/min; Magnesium 2.2 mg/dl (1.7-2.4); Potassium 4.9 mmol/L (3.5-5.1)
[2024-10-10 09:28] LABS: Thyroid Stimulating Hormone 6.496 uIu/ml (0.300-4.500)
[2024-10-10] MEDS: FAMOTIDINE 20 MG TAB PO SCH (09:55)
[2024-10-10 10:04] LABS: T4 Free Thyroxine 0.9 ng/dl (0.61-1.60)
--- NOTE | 2024-10-10 12:32 | Gastroenterology Progress Note ---
Date of Service October 10, 2024 Assessment & Plan (1) Chest pain: Plan: Continued abdominal discomfort. Will plan EGD for am. Procedure and risks discussed. He agrees Admission and Anticipated Discharge Date Admission Date: October 09, 2024 Subjective Feeling well. Cardiology work up noted. Wants to get EGD done Physical Exam Physical Exam: He looks well Constitutional: WD/WN, vitals as above Results & Data Vital Signs (Past 12 Hours) Vital Signs Temp Pulse Resp BP BP Pulse Ox O2 Del Method 10/10/24 11:00 36.8 C 69 16 131/81 95 Room Air 10/10/24 07:41 36.7 C 74 17 118/79 96 Room Air 10/10/24 02:48 36.6 C 87 17 119/79 94 Room Air (1) Chest pain Chest pain type: unspecified Qualified Code(s): R07.9 - Chest pain, unspecified
[2024-10-10] MEDS: ALPRAZolam 0.25 MG TABLET PO ONE (14:03)
[2024-10-10] MEDS: PANTOprazole 40 MG/10 ML SYR IV SCH (20:08)
[2024-10-11 05:04] LABS: Hemoglobin 14.6 g/dl (14.0-18.0); Mean Corpuscular Hgb Conc 35.6 g/dL (32.0-36.0); Mean Corpuscular Volume 95.3 fL (80.0-100.0); Mean Platelet Volume 11.3 fL (9.4-12.4); Platelet Count 226 K/uL (130-400); RDW Coefficient of Variation 12.2 % (11.5-14.5); RDW Standard Deviation 42.6 fL (36.4-46.3); White Blood Count 5.48 K/ul (4.8-10.8)
[2024-10-11 05:25] LABS: BUN Creatinine Ratio 16.5 (10-20); Calcium 9.2 mg/dl (8.6-10.3); Creatinine Clr Calc Pharmacy 64.9 ml/min; Magnesium 2.1 mg/dl (1.7-2.4)
--- NOTE | 2024-10-11 08:12 | Hospitalist Progress Note ---
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 He was recently hospitalized at [facility] for a chest pain workup that was essentially negative. He presented to the ED due to ongoing epigastric pain, dyspnea, and scrotal pain. He was admitted to the hospital due to concerning cardiac history requiring stents (cardiology consulted on admission, significant GI symptoms limiting his lifestyle (GI consulted on admission), urology also consulted due to hematuriaworkup can be done outpatient. #Abdominal pain / GERD Patient with severe epigastric pain for several weeks along with dyspepsia and flatulence. Hx GERD CTAP showed no acute changes of bowel, mild diverticulosis without diverticulitis GI consulted wanted cardiac workup completed prior to GI intervention; awaiting further eval/recommendations. See CP below Pepcid BID, carafate suspension 1gm QID Protonix increased to BID 2/5 Norvasc 5mg PO daily for esophageal spasm/HTN per GI -- BP currently 121/75 and well controlled Alprazolam 0.25mg PO daily resumed/possible withdrawal contributing WBC wnl, hgb stable, stable electrolytes and renal function on AM labs MUCH IMPROVED on exam today, however NPO for EGD for eval/tx (hx hemochromatosis/increased risk factor for esophageal adenocarcinoma) NS @ 75cc/hr while NPO Hopeful dc following EGD vs in AM, does have constipation concerns. Added colace BID/RN to give miralax prn once back from scope. Ambulation encouraged (2) GERD (gastroesophageal reflux disease): Plan: as above, PPI increased to BID 2/5 and remains on pepcid BID/carafate. Aleve use 2x/wk but no excessive use EGD planned for today, pending results plan for PPI/carafate/pepcid at dc (3) Chest pain: Plan: Hx CAD s/p RCA PCI x 3 in 2003 and 2015[address] Mahmood outpatient who referred patient for heart cath 10/02/24 Chest pain more related to GERD above however dyspnea on exertion since similar to when patient previously needed stents Echo 10/05/2024 essentially negative, grade 1 diastolic dysfunction; CTA on admission showed moderate coronary calcifications in LAD and RCA along with mild hilar lymphadenopathy (nonspecific); Troponin negative x 3, EKG NSR no ischemic changes Continue Plavix, lipitor 80 mg, Metoprolol 12.5 mg daily. Not a candidate for aspirin which caused hives Cardiology consulted -- cardiac cath 10/09/24 patent large vessels with patent prior stents (noting mild-moderate in-stent restenosis), mild to moderate nonocclusive disease -- cardiology feels this is unlikely to correct the complaints he presented with and still needs further evaluation of his significant GI symptoms NORVAS 5mg PO daily added/continued, ?esophageal spasm. EGD for today above *Also notable had been weaning off his alprazolam about 8 wks ago c/w timing for symptoms. He had cut from 0.5mg to 0.25mg x 2 weeks then cold turkey stopped. 0.25mg PO x 1 ordered and scheduled 0.25mg PO daily/continued (~15 yr use reported) - Will need f/u for slow taper, continue 0.25mg dose for now. in cardiology note 10/02, also notes at that time sx chest tightness/SOB since coming off alprazolam, along with GI upset, dyspepsia, difficulty sleeping (4) Exertional dyspnea: Plan: cath negative for need for stent. on RA. No pleuritic pain/pain with inspiration. PPI/H2/carafate as above, EGD 10/11 for eval. Norvasc started/titrate as able. (5) Hematuria: Plan: #Hematuria / Hydronephrosis Patient with history of transitional cell cancer of bladder s/p BCG treatment approximately 2 years ago; scheduled for repeat cystoscopy in April 2025, now will likely have it moved up within next 1 month Patient denies gross hematuria however hematuria noted on UA Intermittent scrotal pain however Scrotal ultrasound essentially negative, left hydrocele -- no evidence of orchitis, epididymitis, or testicular torsion CTAP showed mild left hydronephrosis and hydroureter down to the level of urinary bladder along with slight enhancement of wall of distal ureter suggesting ascending urinary tract infection Patient was on Bactrim due to potential UTI [employer] however reported UA negative in office on Wednesday; Bactrim discontinued on admission as asymptomatic and UA negative; No further hematuria reported per patient since moving his bowels Repeat urine culture preliminary WITHOUT GROWTH, no abx at this time Peripheral smear not suggestive any blasts/toxic vacuolation/etc, consider heme/onc ref in f/u Urology consulted can arrange outpatient cystoscopy within next month (6) Hydronephrosis: Plan: as above, plan for urology f/u (7) Fever and chills: Plan: #Fever and chills Patient with intermittent fevers, chills, cough, body aches for multiple weeks; Recent TSH WNL, BioFire negative, tick panel negative . ?reaction to bactrim? CRP acutely elevated at 9.30, ESR normal at 15; Chest CTA noted mild hilar lymphadenopathy bilaterally; remains afebrile without leukocytosis peripheral smear pending -- no acute finding noted -- rec consider ref hem/onc after dc (noting 14mm retroperitoneal lymph node near R kidney) Tylenol and Tessalon Perle as needed as above, ongoing for multiple weeks in setting of titrating off his alprazolam and could have been having withdrawal monitor response to resumption of low dose alprazolam 0.25mg PO x 1, will schedule low dose daily 0.25 TSH w/ mild elevation to 6.49 but normal T3/T4. Rec f/u PCP/repeat outpt Plan Chronic stable diagnoses: Depression continue citalopram, recently stopped his alprazolam as above, suspect withdrawal could be contributing and has been resumed at low dose above HTN Continue metoprolol, BPH currently not in retention, bladder scan as needed, straight cath as needed Hx PE and DVT provoked 2/2 surgery in 2018, was on Xarelto however no longer requires Constipation -- colace BID added, miralax prn. Monitor DVT proph: defer w/ hematuria/EGD for today, continue SCDs Dispo: EGD w/ Dr Hidalgo today. Continue PPI/pepcid/Carafate, norvasc 5mg, alprazolam 0.25mg. Bowel regimen added/monitor constipation Hopeful dc in AM 2/6 if moving bowels as discussed. Updated 2/4 at bedside Admission and Anticipated Discharge Date Admission Date: October 09, 2024 Supervising Physician Co-Signing Physician Notes The patient was not seen by me. The chart was reviewed. Case discussed with OPHELIA Candelaria. Agree with assessment and plan Subjective Eval this morning, resting in bed, awaiting EGD. Reports improvement in his symptoms, no CP at present. Remains on new Norvasc and increased his protonix to twice daily. Notable did also resume/continue low dose alprazolam as discussed for possible withdrawal sx given timeline. His main concern presently is constipation. Moved bowels 2 days ago but nothing since, no significant abdominal pain however/has +BS on exam. Will add colace/miralax. DC pending EGD results, either later this evening if negative study vs tomorrow once moves bowels. Questions/concerns addressed at this time. Physical Exam 2 Physical Exam: General: 73yo male sitting up in bed, NAD, no family in room today HEENT: head atraumatic, normocephalic, mmm, trachea midline Resp: even/unlabored, no wheezing/rales, on room air CV: RRR, no significant m/r/g, no pitting edema, calves nontender GI: +BS, soft/slight distension but NONTENDER no hughes, no further hematuria reported MSK/Neuro: nonfocal, not confused, answering questions appropriately Psych: AOx3, cooperative with exam Results & Data Results & Data Vital Signs (Past 12 Hours) Vital Signs Temp Pulse Pulse Resp BP Pulse Ox O2 Del Method 10/11/24 07:34 36.4 C L 64 19 114/73 95 Room Air 10/11/24 03:35 36.7 C 63 16 102/65 95 Room Air 10/10/24 23:04 36.9 C 61 16 126/78 97 Room Air 10/10/24 21:45 86 10/10/24 20:06 37.0 C 61 20 116/75 96 Room Air Laboratory Results 10/11/24 04:26 10/11/24 04:26 Mag 2.1 PG Care Time/CCT Total # of Minutes Spent Total Time Spent with Patient: Total time spent is greater than 50% in coordination of care (as documented) at patient's floor/unit and/or counseling patient: Coding Level of Care Code 75607 SUB INP/OBS CARE 3/50MIN Diagnoses Abdominal pain R10.9 GERD (gastroesophageal reflux disease) K21.9 Chest pain R07.9 Chest pain type: unspecified Exertional dyspnea R06.09 Hematuria R31.9 Hydronephrosis N13.30 Fever and chills R50.9 (3) Chest pain Chest pain type: unspecified Qualified Code(s): R07.9 - Chest pain, unspecified
[2024-10-11] MEDS: SODIUM CHLORIDE 0.9% 1,000 ML IV SCH (08:17)
[2024-10-11] MEDS: ALPRAZolam 0.25 MG TABLET PO SCH (08:17)
--- NOTE | 2024-10-11 12:25 | Anesthesiology Consultation ---
Date of Service October 11, 2024 Assessment & Plan Chart Review Chart Review: Acceptable Risk for Surgery and Patient NOT seen in Pre Admission Testing History Surgery Operation Date: 10/09/24 10:00 Proposed Procedures p Cardiac Cath Procedure - Marcos Swanson MD, PhD Operation Date: 10/11/24 16:30 Proposed Procedures p Esophagogastroduodenoscopy Dr. Hidalgo - Martha Hidalgo Jr, MD Height/Weight Height: 5 ft 10 in Weight: 92.5 kg Allergies Allergy/AdvReac Type Severity Reaction Status Date / Time aspirin Allergy Intermediate Hives Verified 10/02/24 11:02 ibuprofen Allergy Intermediate Hives Verified 10/02/24 11:02 Penicillins Allergy Intermediate Hives Verified 10/02/24 11:02 oxycodone AdvReac Mild Dyspepsia Verified 10/02/24 11:02 Medications Home Medications Medication Instructions Recorded Confirmed Last Taken magnesium 200 mg tablet 400 mg PO QAM 07/05/18 10/08/24 03/01/24 multivitamin 1 tab PO QAM 07/05/18 10/08/24 03/01/24 pantoprazole 40 mg tablet,delayed 40 mg PO QAM 07/05/18 10/08/24 03/02/24 05:45 release citalopram 20 mg tablet 20 mg PO QAM 03/26/20 10/08/24 03/02/24 05:45 clopidogrel 75 mg tablet 75 mg PO QAM #90 tabs 07/22/23 10/08/24 03/01/24 atorvastatin 80 mg tablet 80 mg PO HS #90 tabs 11/11/23 10/08/24 03/01/24 metoprolol succinate 25 mg 12.5 mg (1/2 x 25 mg) PO QAM #45 07/05/24 10/08/24 Unknown tablet,extended release 24 hr tabs famotidine 20 mg tablet (Pepcid) 20 mg PO BID #180 tabs 09/28/24 10/08/24 Unknown nitroglycerin 0.4 mg sublingual 0.4 mg sublingual Q5M PRN chest 10/02/24 10/08/24 Unknown tablet (Nitrostat) pain #25 tabs sulfamethoxazole 800 1 tab PO BID 7 days #14 tabs 10/03/24 10/08/24 Unknown mg-trimethoprim 160 mg tablet (Bactrim DS) cholecalciferol (vitamin D3) 50 100 mcg PO DAILY 10/08/24 10/08/24 Unknown mcg (2,000 unit) tablet (Vitamin D3) Active Medications Generic Name Dose Route Start Last Admin Trade Name Freq PRN Reason Stop Dose Admin Acetaminophen 650 mg 10/08/24 04:27 10/09/24 19:30 Acetaminophen 325 Mg Tab PO 11/07/24 04:26 650 mg Q4H PRN Administration Pain or Fever Alprazolam 0.25 mg 10/11/24 09:00 10/11/24 08:17 Alprazolam 0.25 Mg Tablet PO 11/10/24 08:59 0.25 mg QAM KRISTEN Administration Amlodipine Besylate 5 mg 10/10/24 09:00 10/11/24 08:17 Amlodipine Besylate 5 Mg Tab PO 11/09/24 08:59 5 mg QAM KRISTEN Administration Atorvastatin Calcium 80 mg 10/08/24 04:27 10/10/24 20:08 Atorvastatin 40 Mg Tab PO 11/07/24 04:26 80 mg HS KRISTEN Administration Citalopram Hydrobromide 20 mg 10/08/24 09:00 10/11/24 08:17 Citalopram 20 Mg Tab PO 11/07/24 08:59 20 mg QAM KRISTEN Administration Clopidogrel Bisulfate 75 mg 10/08/24 09:00 10/11/24 08:17 Clopidogrel Bisulfate 75 Mg Tab PO 11/07/24 08:59 75 mg QAM KRISTEN Administration Famotidine 20 mg 10/10/24 09:00 10/11/24 08:17 Famotidine 20 Mg Tab PO 11/09/24 08:59 20 mg BID KRISTEN Administration Pantoprazole Sodium 40 mg in 10 mls @ 5 mls/min 10/10/24 21:00 10/11/24 08:17 Protonix IV 11/09/24 20:59 5 mls/min BID KRISTEN Administration Sodium Chloride 1,000 mls @ 75 mls/hr 10/11/24 08:15 10/11/24 08:17 Nss IV 10/12/24 08:14 75 mls/hr .[id number] KRISTEN Administration Magnesium Hydroxide 30 ml 10/09/24 20:28 10/09/24 20:52 Magnesium Hydroxide Susp 30 Ml Udc PO 11/08/24 20:27 30 ml Q6H PRN Administration Constipation Magnesium Oxide 400 mg 10/08/24 09:00 10/11/24 08:17 Magnesium Oxide 400 Mg Tab PO 11/07/24 08:59 400 mg QAM KRISTEN Administration Metoprolol Succinate 12.5 mg 10/08/24 09:00 10/11/24 08:17 Metoprolol Succ 25mg Ext Rel Tab PO 11/07/24 08:59 12.5 mg QAM KRISTEN Administration Ondansetron HCl 4 mg 10/08/24 04:27 10/08/24 14:56 Ondansetron Inj 2 Mg/Ml 2 Ml Vial IV 11/07/24 04:26 4 mg Q6H PRN Administration Nausea And Vomiting Polyethylene Glycol 17 gm 10/08/24 15:13 10/09/24 18:13 Polyethylene (Miralax) 17 Gm Pack PO 11/07/24 15:12 17 gm DAILY PRN Administration Constipation Sucralfate 1 gm 10/08/24 02:40 10/11/24 12:17 Sucralfate 1 Gm/10 Ml Udc PO 11/07/24 02:39 Not Given QID KRISTEN Past Medical History Medical History History of COVID-19 2022: mild symptoms, resolved 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), no chemo/xrt Arthritis History of kidney stones left side 2018 Left rotator cuff tear Mitral regurgitation Echo 11/2021: Mild MR BPH (benign prostatic hyperplasia) Osteoarthritis Hiatal hernia Deep vein thrombosis LLE DVT/PE (2017) post-op b/l TKA Previous AC discontinued, no issues since Pulmonary embolism LLE DVT/PE (2018) post-op b/l TKA Previous AC discontinued, no issues since Past Family History Family History Mother Family history of diabetes mellitus Brother Family history of diabetes mellitus Family/Other Cardiac disorder Hypertension Father Myocardial infarction Other No family history of adverse response to anesthesia Denies family history of Ovarian cancer Prostate cancer Breast cancer Colorectal cancer Past Surgical History Surgical History History of amputation of right index finger 2007 S/P left rotator cuff repair 2023 History of cystoscopy + bladder biopsy (04/02/20): LMA#5, unique at [facility] History of lithotripsy History of cardiac cath 2004- stent x2 2016, stent x1 H/O transurethral resection of prostate 2000 History of surgery Bladder tumor excision Right index finger partial amputation (2/2 trauma) History of Achilles tendon repair Right 1999 History of arthroscopy Right shoulder 2006, right knee 1980, left knee 1985 History of ankle joint replacement Right 2018 History of total knee replacement B/L TKA (Done under [place], Plavix only held 5 days prior to surgery per cardiology recommendations) History of esophagogastroduodenoscopy (EGD) History of colonoscopy History of tonsillectomy 195 History of eye surgery 1960 Social History Smoking Status: Former smoker Do You Dip or Chew Tobacco: No Hx Alcohol Use: No Hx Substance Use: No substance use type: does not use Physical Exam Vital Signs Last Vital Signs Temp 36.8 C 10/11/24 11:05 Pulse 65 10/11/24 11:05 Resp 18 10/11/24 11:05 BP 109/74 10/11/24 11:05 Pulse Ox 95 10/11/24 11:05 O2 Del Method Room Air 10/11/24 11:22 Testing Laboratory Results 10/11/24 04:26 10/11/24 04:26 Urine Color Yellow 10/07/24 23:38 Urine Appearance Clear (Clear) 10/07/24 23:38 Urine pH 7.0 (4.5-7.5) 10/07/24 23:38 Ur Specific [place] 1.027 (1.000-1.030) 10/07/24 23:38 Urine Protein 1+ (Negative) H 10/07/24 23:38 Urine Glucose (UA) Negative (Negative) 10/07/24 23:38 Urine Ketones Trace (Negative) H 10/07/24 23:38 Urine Nitrite Negative (Negative) 10/07/24 23:38 Ur Leukocyte Esterase Negative (Negative) 10/07/24 23:38 Urine WBC (Auto) 0-5 /hpf (0-5) 10/07/24 23:38 Urine RBC (Auto) 11-20 /hpf (0-2) H 10/07/24 23:38 U Hyaline Cast (Auto) 0-2 /lpf (0-2) 02/01/25 23:38 U Epithel Cells (Auto) 0-2 /hpf (0-2) 10/07/24 23:38 Urine Bacteria (Auto) None Seen (None Seen) 10/07/24 23:38 10/08/24 03:00 Urine Culture - Final Urine,Clean Catch No growth - less than 1,000 colonies/mL.
[2024-10-11] MEDS: SODIUM CHLORIDE 0.9% 500 ML IV SCH (12:35)
--- NOTE | 2024-10-11 12:35 | History & Physical Report ---
Date of Service October 11, 2024 Assessment & Plan (1) Chest pain: Plan: Chest pain for EGD. Procedure and risks discussed. He agrees Chest pain type: unspecified Qualified Code(s): R07.9 - Chest pain, unspecified Admission and Anticipated Discharge Date Admission Date: October 09, 2024 History of Present Illness Chief Complaint: chest pain Primary Care Provider: Jaden Carter DO In patient for EGD for chest pain Allergies Allergy/AdvReac Type Severity Reaction Status Date / Time aspirin Allergy Intermediate Hives Verified 10/11/24 12:26 ibuprofen Allergy Intermediate Hives Verified 10/11/24 12:26 Penicillins Allergy Intermediate Hives Verified 10/11/24 12:26 oxycodone AdvReac Mild Dyspepsia Verified 10/11/24 12:26 Home Medications Medication Instructions Recorded Confirmed Type magnesium 200 mg tablet 400 mg PO QAM 07/05/18 10/08/24 History multivitamin 1 tab PO QAM 07/05/18 10/08/24 History pantoprazole 40 mg tablet,delayed 40 mg PO QAM 07/05/18 10/08/24 History release citalopram 20 mg tablet 20 mg PO QAM 03/26/20 10/08/24 History clopidogrel 75 mg tablet 75 mg PO QAM #90 tabs 07/22/23 10/11/24 Rx atorvastatin 80 mg tablet 80 mg PO HS #90 tabs 11/11/23 10/08/24 Rx metoprolol succinate 25 mg 12.5 mg (1/2 x 25 mg) PO QAM #45 07/05/24 10/08/24 Rx tablet,extended release 24 hr tabs famotidine 20 mg tablet (Pepcid) 20 mg PO BID #180 tabs 09/28/24 10/08/24 Rx nitroglycerin 0.4 mg sublingual 0.4 mg sublingual Q5M PRN chest 10/02/24 10/08/24 Rx tablet (Nitrostat) pain #25 tabs sulfamethoxazole 800 1 tab PO BID 7 days #14 tabs 10/03/24 10/08/24 Rx mg-trimethoprim 160 mg tablet (Bactrim DS) cholecalciferol (vitamin D3) 50 100 mcg PO DAILY 10/08/24 10/08/24 History mcg (2,000 unit) tablet (Vitamin D3) Past Med/Surg History Problem List Exertional dyspnea Fever and chills Hydronephrosis Hematuria Abdominal pain (Acute) Chest pain (Acute) Exertional angina Cough Presence of drug-eluting stent in right coronary artery Hereditary hemochromatosis Hypertension CAD (coronary artery disease) 2004- stent x2 2016- DESx1 to RCA GERD (gastroesophageal reflux disease) Controlled Hearing deficit Hyperlipidemia Anxiety Depression Benign prostatic hyperplasia (BPH) with straining on urination Medical History History of COVID-19 2022: mild symptoms, resolved 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), no chemo/xrt Arthritis History of kidney stones left side 2018 Left rotator cuff tear Mitral regurgitation Echo 11/2021: Mild MR BPH (benign prostatic hyperplasia) Osteoarthritis Hiatal hernia Deep vein thrombosis LLE DVT/PE (2018) post-op b/l TKA Previous AC discontinued, no issues since Pulmonary embolism LLE DVT/PE (2018) post-op b/l TKA Previous AC discontinued, no issues since Surgical History History of amputation of right index finger 2007 S/P left rotator cuff repair 2023 History of cystoscopy + bladder biopsy (04/02/20): LMA#5, unique at [facility] History of lithotripsy History of cardiac cath 2004- stent x2 2016, stent x1 H/O transurethral resection of prostate 1999 History of surgery Bladder tumor excision Right index finger partial amputation (2/2 trauma) History of Achilles tendon repair Right 1998 History of arthroscopy Right shoulder 2005, right knee 1979, left knee 1985 History of ankle joint replacement Right 2018 History of total knee replacement B/L TKA (Done under [place], Plavix only held 5 days prior to surgery per cardiology recommendations) History of esophagogastroduodenoscopy (EGD) History of colonoscopy History of tonsillectomy 1956 History of eye surgery 1959 Family History Mother Family history of diabetes mellitus Brother Family history of diabetes mellitus Family/Other Cardiac disorder Hypertension Father Myocardial infarction Other No family history of adverse response to anesthesia Denies family history of Ovarian cancer Prostate cancer Breast cancer Colorectal cancer Social History Smoking Status: Former smoker Tobacco Type: Cigarettes Age Started Using Tobacco: 13; Age Quit Using Tobacco: 23; packs per day: 0.25; Second Hand Exposure: No; Do You Dip or Chew Tobacco: No; Hx Alcohol Use: No Hx Substance Use: No Preferred Language: Barbadian Communication Ability: Effective Visual Impairment: No Limitations Director Of Transportation Required: No Beliefs That Will Affect Care: None marital status: Current Living Situation: Spouse current occupational status: retired Other Information That Helps Us Care for You: No Feels Safe at Home: Yes Safety Concerns: Feels Safe At This Time Diet: regular Diet Comment: regular caffeine: Yes during the past year weight has: remained stable Dental Care, Regularly: Yes Physical Activity Frequency: Daily Seatbelt Use: always Sunscreen Use: No Assistive Devices: Cane and Walker Physical Exam Constitutional: WD/WN, vitals as above Respiratory: normal respiratory effort, lungs clear to auscultation Cardiovascular: RRR, no murmur, no edema Gastrointestinal (Abdomen): normal bowel sounds, soft, nontender, no hepatosplenomegaly ASA Classification ASA ASA3 Results & Data Vital Signs (Past 12 Hours) Vital Signs Temp Pulse Resp BP Pulse Ox O2 Del Method 10/11/24 12:27 64 16 121/75 96 Room Air 10/11/24 11:22 Room Air 10/11/24 11:05 36.8 C 65 18 109/74 95 Room Air 10/11/24 07:34 36.4 C L 64 19 114/73 95 Room Air 10/11/24 03:35 36.7 C 63 16 102/65 95 Room Air Code Status & VTE Plan VTE Prophylaxis Plan VTE Prophylaxis will be ordered: Yes
--- NOTE | 2024-10-11 13:13 | GI REPORT ---
[facility] Patient: RE ROD : 1950 Sex at : Male Age: 73 Years Procedure: Upper GI endoscopy Date: 10/11/2024 Attending Physician: Martha Hidalgo MD Referring MD: Fito Carmona Indications: - Unexplained chest pain Medications: - Monitored Anesthesia Care - Propofol per Anesthesia - See the Anesthesia note for documentation of the administered medications Complications: - No immediate complications. Estimated Blood Loss: - Estimated blood loss: None. Procedure: - Prior to the procedure, a History and Physical was performed, and patient medications and allergies were reviewed. The patient's tolerance of previous anesthesia was also reviewed. The risks and benefits of the procedure and the sedation options and risks were discussed with the patient. All questions were answered, and informed consent was obtained. Prior Anticoagulants: The patient has taken Plavix (clopidogrel), last dose was day of procedure. ASA Grade Assessment: III - A patient with severe systemic disease. After reviewing the risks and benefits, the patient was deemed in satisfactory condition to undergo the procedure. - The egd scope was introduced through the mouth and advanced to the second part of the duodenum. - The upper GI endoscopy was accomplished without difficulty. - The patient tolerated the procedure well. Findings: - The examined esophagus was normal. - The entire examined stomach was normal. - The examined duodenum was normal. Impression: - Normal esophagus. - Normal stomach. - Normal examined duodenum. - No specimens collected. Recommendation: - Return patient to hospital [facility] for ongoing care. Procedure Code(s): - 63122, Esophagogastroduodenoscopy, flexible, transoral; diagnostic, including collection of specimen(s) by brushing or washing, when performed (separate procedure) Diagnosis Code(s): - R07.9, Chest pain, unspecified CPT(R) - 2023 copyright [employer]. All Rights Reserved. The CPT codes, CCI edits and ICD codes generated are intended as suggestions and were generated based on input data. These codes are preliminary and upon crusher tender review may be revised to meet current compliance and payer requirements. The provider is responsible for the final determination of appropriate codes, and modifiers. Dr. Martha Hidalgo MD This document has been electronically signed. Note Initiated:10/11/2024 Note Completed:10/11/2024 1:12 PM [email or web address]\Provation\Results\[email or web address]\[id number]
--- NOTE | 2024-10-11 13:48 | Anesthesiology Progress Note ---
Date of Service October 11, 2024 Anesthesia Post Procedure Vital Signs Vital Signs: Temp Pulse Pulse Resp BP Pulse Ox O2 Del Method 10/11/24 13:31 64 16 115/71 97 Room Air 10/11/24 13:16 36.1 C L 70 10 L 106/88 95 Oxymask 10/11/24 12:27 64 16 121/75 96 Room Air 10/11/24 11:22 Room Air 10/11/24 11:05 36.8 C 65 18 109/74 95 Room Air 10/11/24 07:34 36.4 C L 64 19 114/73 95 Room Air 10/11/24 03:35 36.7 C 63 16 102/65 95 Room Air 10/10/24 23:04 36.9 C 61 16 126/78 97 Room Air 10/10/24 21:45 86 10/10/24 20:06 37.0 C 61 20 116/75 96 Room Air 10/10/24 15:50 36.8 C 65 20 131/80 95 Room Air 10/10/24 14:48 69 O2 Flow Rate 10/11/24 13:31 10/11/24 13:16 6 10/11/24 12:27 10/11/24 11:22 10/11/24 11:05 10/11/24 07:34 10/11/24 03:35 10/10/24 23:04 10/10/24 21:45 10/10/24 20:06 10/10/24 15:50 10/10/24 14:48 Pain Intensity Scrotal: Pain Intensity: 5 Transfer of Care Handoff Completed per policy Notes Mental Status: alert / awake / arousable and participated in evaluation Patient Amnestic to Procedure: Yes Nausea / Vomiting: adequately controlled Pain: adequately controlled Airway Patency, RR, SpO2: stable & adequate BP & HR: stable & adequate Hydration State: stable & adequate Anesthetic Complications: no major complications apparent and Pt Satisfied with anesthetic care
[2024-10-11] MEDS: LIDOCAINE 2% 2 ML VIAL/AMP(20MG/ML) INFIL ONE (14:11)
[2024-10-11] MEDS: ONDANSETRON INJ 2 MG/ML 2 ML VIAL ONE (14:12)
[2024-10-11] MEDS: PROPOFOL IV EMULSION 10 MG/ML 20 ML VIAL IV ONE (14:12)
[2024-10-11] MEDS: POLYETHYLENE (MIRALAX) 17 GM PACK PO SCH (18:34)
[2024-10-11 20:17] LABS: Babesia microti DNA Not Detected (Not Detected)
[2024-10-11] MEDS: DOCUSATE SODIUM 100 MG CAP PO SCH (20:23)
[2024-10-12 06:44] LABS: BUN Creatinine Ratio 17.5 (10-20); Creatinine Clr Calc Pharmacy 71.7 ml/min; Magnesium 2.2 mg/dl (1.7-2.4); Potassium 4.2 mmol/L (3.5-5.1)
[2024-10-12 07:05] VITALS: TEMP 97.9
--- NOTE | 2024-10-12 07:59 | Hospitalist Progress Note ---
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 He was recently hospitalized at [facility] for a chest pain workup that was essentially negative. He presented to the ED due to ongoing epigastric pain, dyspnea, and scrotal pain. He was admitted to the hospital due to concerning cardiac history requiring stents (cardiology consulted on admission, significant GI symptoms limiting his lifestyle (GI consulted on admission), urology also consulted due to hematuriaworkup can be done outpatient. #Abdominal pain / GERD Patient with severe epigastric pain for several weeks along with dyspepsia and flatulence. Hx GERD CTAP showed no acute changes of bowel, mild diverticulosis without diverticulitis GI consulted wanted cardiac workup completed prior to GI intervention; awaiting further eval/recommendations. See CP below Pepcid BID, carafate suspension 1gm QID Protonix increased to BID 2/5 Norvasc 5mg PO daily for esophageal spasm/HTN per GI -- BP currently 121/75 and well controlled Alprazolam 0.25mg PO daily resumed/possible withdrawal contributing WBC wnl, hgb stable, stable electrolytes and renal function on AM labs MUCH IMPROVED on exam today, however NPO for EGD for eval/tx (hx hemochromatosis/increased risk factor for esophageal adenocarcinoma) NS @ 75cc/hr while NPO Hopeful dc following EGD vs in AM, does have constipation concerns. Added colace BID/RN to give miralax prn once back from scope. Ambulation encouraged 2/6 EGD not showing any significant findings to explain sx, notable sx reported improved AM 2/5 prior to EGD w/ resumption of xanax (also increased PPI/norvasc notable) Renal function/electrolytes stable. (2) GERD (gastroesophageal reflux disease): Plan: as above, PPI increased to BID 2/5 and remains on pepcid BID/carafate. Aleve use 2x/wk but no excessive use EGD planned for today, pending results plan for PPI/carafate/pepcid at dc (3) Chest pain: Plan: Hx CAD s/p RCA PCI x 3 in 2003 and 2015[address] Mahmood outpatient who referred patient for heart cath 10/02/24 Chest pain more related to GERD above however dyspnea on exertion since similar to when patient previously needed stents Echo 10/05/2024 essentially negative, grade 1 diastolic dysfunction; CTA on admission showed moderate coronary calcifications in LAD and RCA along with mild hilar lymphadenopathy (nonspecific); Troponin negative x 3, EKG NSR no ischemic changes Continue Plavix, lipitor 80 mg, Metoprolol 12.5 mg daily. Not a candidate for aspirin which caused hives Cardiology consulted -- cardiac cath 10/09/24 patent large vessels with patent prior stents (noting mild-moderate in-stent restenosis), mild to moderate nonocclusive disease -- cardiology feels this is unlikely to correct the complaints he presented with and still needs further evaluation of his significant GI symptoms NORVAS 5mg PO daily added/continued, ?esophageal spasm. EGD for today above *Also notable had been weaning off his alprazolam about 8 wks ago c/w timing for symptoms. He had cut from 0.5mg to 0.25mg x 2 weeks then cold turkey stopped. 0.25mg PO x 1 ordered and scheduled 0.25mg PO daily/continued (~15 yr use reported) - Will need f/u for slow taper, continue 0.25mg dose for now. in cardiology note 10/02, also notes at that time sx chest tightness/SOB since coming off alprazolam, along with GI upset, dyspepsia, difficulty sleeping (4) Exertional dyspnea: Plan: cath negative for need for stent. on RA. No pleuritic pain/pain with inspiration. PPI/H2/carafate as above, EGD 10/11 for eval. Norvasc started/titrate as able. (5) Hematuria: Plan: #Hematuria / Hydronephrosis Patient with history of transitional cell cancer of bladder s/p BCG treatment approximately 2 years ago; scheduled for repeat cystoscopy in April 2025, now will likely have it moved up within next 1 month Patient denies gross hematuria however hematuria noted on UA Intermittent scrotal pain however Scrotal ultrasound essentially negative, left hydrocele -- no evidence of orchitis, epididymitis, or testicular torsion CTAP showed mild left hydronephrosis and hydroureter down to the level of urinary bladder along with slight enhancement of wall of distal ureter suggesting ascending urinary tract infection Patient was on Bactrim due to potential UTI [employer] however reported UA negative in office on Wednesday; Bactrim discontinued on admission as asymptomatic and UA negative; No further hematuria reported per patient since moving his bowels Repeat urine culture preliminary WITHOUT GROWTH, no abx at this time Peripheral smear not suggestive any blasts/toxic vacuolation/etc, consider heme/onc ref in f/u Urology consulted can arrange outpatient cystoscopy within next month (6) Hydronephrosis: Plan: as above, plan for urology f/u (7) Fever and chills: Plan: #Fever and chills Patient with intermittent fevers, chills, cough, body aches for multiple weeks; Recent TSH WNL, BioFire negative, tick panel negative . ?reaction to bactrim? CRP acutely elevated at 9.30, ESR normal at 15; Chest CTA noted mild hilar lymphadenopathy bilaterally; remains afebrile without leukocytosis peripheral smear pending -- no acute finding noted -- rec consider ref hem/onc after dc (noting 14mm retroperitoneal lymph node near R kidney) Tylenol and Tessalon Perle as needed as above, ongoing for multiple weeks in setting of titrating off his alprazolam and could have been having withdrawal monitor response to resumption of low dose alprazolam 0.25mg PO x 1, will schedule low dose daily 0.25 TSH w/ mild elevation to 6.49 but normal T3/T4. Rec f/u PCP/repeat outpt Plan Chronic stable diagnoses: Depression continue citalopram, recently stopped his alprazolam as above, suspect withdrawal could be contributing and has been resumed at low dose above HTN Continue metoprolol, BPH currently not in retention, bladder scan as needed, straight cath as needed Hx PE and DVT provoked 2/2 surgery in 2018, was on Xarelto however no longer requires Constipation -- colace BID added, miralax prn. Monitor DVT proph: defer w/ hematuria/EGD for today, continue SCDs Dispo: EGD w/ Dr Hidalgo today. Continue PPI/pepcid/Carafate, norvasc 5mg, alprazolam 0.25mg. Bowel regimen added/monitor constipation Hopeful dc in AM 2/6 if moving bowels as discussed. Updated 2/4 at bedside Admission and Anticipated Discharge Date Admission Date: October 09, 2024 Results & Data Results & Data Vital Signs (Past 12 Hours) Vital Signs Temp Pulse Pulse Resp BP Pulse Ox O2 Del Method 10/12/24 07:09 36.6 C 81 22 91/71 L 4 L Nasal Cannula 10/12/24 07:04 36.6 C 63 16 110/73 94 Room Air 10/12/24 03:27 36.7 C 62 18 115/69 96 Room Air 10/11/24 23:14 36.8 C 84 18 93/53 L 96 Room Air 10/11/24 22:51 36.6 C 61 18 91/58 L 96 Room Air 10/11/24 22:48 67 PG Care Time/CCT Total # of Minutes Spent Total Time Spent with Patient: Total time spent is greater than 50% in coordination of care (as documented) at patient's floor/unit and/or counseling patient: Coding Diagnoses Abdominal pain R10.9 GERD (gastroesophageal reflux disease) K21.9 Chest pain R07.9 Chest pain type: unspecified Exertional dyspnea R06.09 Hematuria R31.9 Hydronephrosis N13.30 Fever and chills R50.9 (3) Chest pain Chest pain type: unspecified Qualified Code(s): R07.9 - Chest pain, unspecified
[2024-10-12 10:14] VITALS: PULSE 69; O2SAT 95
--- NOTE | 2024-10-12 10:31 | Discharge Summary ---
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 He was recently hospitalized at [facility] for a chest pain workup that was essentially negative. He presented to the ED due to ongoing epigastric pain, dyspnea, and scrotal pain. He was admitted to the hospital due to concerning cardiac history requiring stents (cardiology consulted on admission, significant GI symptoms limiting his lifestyle (GI consulted on admission), urology also consulted due to hematuriaworkup can be done outpatient. -->Further inquiring as below while inpatient w/ benzo discontinuation this past winter, suspect combination reflux/benzo withdrawal contributed On admission, patient with severe epigastric pain for several weeks along with dyspepsia and flatulence. Hx GERD CTAP showed no acute changes of bowel, mild diverticulosis without diverticulitis GI consult rec cardiology consult/work up prior to EGD which was performed on 10/09 with cardiac cath with Dr Swanson which noted patent large vessels with patent prior stents (noting mild-moderate in-stent restenosis), mild to moderate nonocclusive disease and cardiology felt unlikely to correct the complaints he presented with and rec further eval w/ GI. Did start norvasc 5mg for HTN/esophageal spasm. Had been continued on PPI BID, pepcid BID, carafate 1gm QID and EGD on 10/[address] Hidalgo did not show any significant findings however has been continued on protonix 40mg PO BID at wa and 2 wk course of carafate w/ norvasc given improvement Notable that patient has reported significant issues with "persistent cough, constipation, GI upset, dyspepsia, and difficulty sleeping" when seen by cardiology outpatient given discussion with patient for length of symptoms which has coincided with him titrating OFF his CHRONIC ALPRAZOLAM which he had been on 0.5mg most recently but on for ~15 years and did resume 0.25mg daily with resolution in his symtpoms and suspect could have been having withdrawal and recommended he continue the 0.25mg PO daily and follow up with PCP about SLOW taper and did discuss may take longer than he is wanting but should be tapered slowly to prevent issues and to alert PCP of any return sx. At dc, BP 111/67, WBC wnl/afebrile. Stable electrolytes and NO CP or ABDOMINAL pain reported and wanting to go home. Dc on Protonix 40mg PO BID, Carafate as outlined, norvasc 5mg daily and alprazolam 0.25mg PO daily w/ recs to taper SLOWLY in f/u with PCP. Also did have reports of hematuria but resolved prior to dc however has hx bladder ca and per urology can f/u outpatient. Case management to ensure f/u arranged. (2) GERD (gastroesophageal reflux disease): as above, continue PPI/carafate at dc, benzo restarted low dose w/ resolution in sx but did also start low dose norvasc for possible esophageal spasm and was continued given resolution in sx pepcid discontinued w/ increased PPI at dc (3) Chest pain: Hx CAD s/p RCA PCI x 3 in 2003 and 2015[address] Mahmood. Echo 10/05/2024 essentially negative, grade 1 diastolic dysfunction; CTA on admission showed moderate coronary calcifications in LAD and RCA along with mild hilar lymphadenopathy (nonspecific); Troponin negative x 3, EKG NSR no ischemic changes Cardiology consulted and s/p cardiac cath 2/ with Dr Swanson noting patent large vessels with patent prior stents (noting mild-moderate in-stent restenosis), mild to moderate nonocclusive disease. cardiology feels this is unlikely to correct the complaints he presented with and still needs further evaluation of his significant GI symptoms Did start Norvasc 5mg daily for possible esophageal spasm, EGD as above without acute abn/finding Continued Plavix, Lipitor, metoprolol. Not able to eyad aspirin given allergy w/ hives PPI/Carafate at dc, Norvasc, f/u cardiology rec'd (4) Exertional dyspnea: cath negative for need for stent. on RA. No pleuritic pain/pain with inspiration. PPI/H2/carafate as above, EGD 10/11 for eval. Norvasc started/titrate as able in follow up (5) Hematuria: #Hematuria / Hydronephrosis Patient with history of transitional cell cancer of bladder s/p BCG treatment approximately 2 years ago; scheduled for repeat cystoscopy in April 2025, now will likely have it moved up within next 1 month Patient denies gross hematuria however hematuria noted on UA Intermittent scrotal pain however Scrotal ultrasound essentially negative, left hydrocele -- no evidence of orchitis, epididymitis, or testicular torsion CTAP showed mild left hydronephrosis and hydroureter down to the level of urinary bladder along with slight enhancement of wall of distal ureter suggesting ascending urinary tract infection Patient was on Bactrim due to potential 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 --> consider heme/onc ref in f/u Urology consulted can arrange outpatient cystoscopy within next month (6) Hydronephrosis: as above, plan for urology f/u given his hx (7) Fever and chills: Patient with intermittent fevers, chills, cough, body aches for multiple weeks; Recent TSH WNL, BioFire negative, tick panel negative . ?reaction to bactrim? CRP acutely elevated at 9.30, ESR normal at 15; Chest CTA noted mild hilar lymphadenopathy bilaterally; remains afebrile without leukocytosis Peripheral smear unremarkable, does have 14mm retroperitoneal lymph node near R kidney and rec consider f/u hematology/onc in f/u pending urology eval for hematuria As above, suspect also withdrawal from benzo could have been contributing and reported no further issues since removed. Plan Chronic stable diagnoses: Depression continue citalopram, recently stopped his alprazolam as above, suspect withdrawal could be contributing and has been resumed at low dose above and slow taper at dc w/ PCP recommended HTN Continue metoprolol, norvasc added as above, BP stable prior to dc BPH currently not in retention, bladder scan as needed, straight cath as needed Hx PE and DVT provoked 2/2 surgery in 2018, was on Xarelto however no longer requires Constipation -- colace BID added, miralax prn. +BM 2/6 prior to dc TSH w/ mild elevation to 6.49 but normal T3/T4. Rec f/u PCP/repeat outpt Notes For Next Care Provider Titrate Norvasc if needed for possible esophageal spasm but was added for BP control as well. Suspect bulk of symptoms he has experiencing have been from withdrawal from his assisted benzo use w/ alprazolam. sent 0.25mg po daily x 2 week course and rec to decrease to q2d prior to stopping and could even do another week q3d to ensure not having issues. Follow up with urology for hematuria a (reported resolution in hematuria once inpatient but does have hx bladder ca/req f/u, urology rec can be done outpatient) Consideration for heme/onc referral for Mild leukopenia, hilar lymphadenopathy, 14mm retroperitoneal lymph node near R right kidney while inpatient w/ his hx bladder ca pending urology eval/cysto/etc Medication Changes From Visit Protonix increased to twice daily Carafate 1gm QID x 2 wks Pepcid discontinued Norvasc 5mg PO daily, titrate as needed Alprazolam 0.25mg PO daily -- titrate off in f/u as able Admission HPI Per Admitting Provider Chief Complaint: abdominal pain Primary Care Provider: Jaden Carter DO Patient is a 73 y/o male With a past medical history of 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 He was recently hospitalized at [facility] for a chest pain workup that was essentially negative. He presented to the ED today due to ongoing epigastric pain, dyspnea, and scrotal pain. He is being admitted due to concerning cardiac history requiring stents, will have cardiology consult; hematuria and CT findings of hydronephrosis, hydroureter, and enhancement of bladder, will consult urology; and epigastric pain workup including GI consult and possible EGD. Patient seen at bedside with present. He stated that he came in today because he is tired of the symptoms and wants some answers. Regarding his epigastric pain; it has been ongoing for several weeks weeks since he started tapering his alprazolam. He is describes it as gas and bloating and he has frequent burping and flatulence. He has had multiple episodes of significant epigastric pain that he describes as radiating up through his central chest. The pain is unrelated to eating and typically gets worse throughout the day with it being worst in the evening. He does have a history of GERD and takes Pepcid and pantoprazole but no ulcer history. He is unsure if he had an EGD but feels as though he had a colonoscopy roughly 10 years ago. He endorses vomiting due to the pain but no frequent nausea. He has continued to take Pepcid and pantoprazole at home without relief. In ED he was given IV Zofran and IV Pepcid and his pain is 0/10. Regarding his dyspnea and cardiac history, patient stated he has had dyspnea on exertion since that he noticed when he was hunting. He denies any chest pain on exertion. He can go up a flight of stairs without dyspnea but it is when he is doing very strenuous things like hiking. Previously when he required stents he had chest tightness and dyspnea that felt very similar to this so the dyspnea was concerning to him. He was admitted to [facility] discharge 10/05 in which he had a cardiac echo that was essentially negative. He did not have a cardiac cath but stated he saw his appliance mechanic Dr. Mahmood on 10/02 who is working on insurance Auth for potential heart cath. 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 Regarding his scrotal pain and urologic symptoms, patient has a history of transitional cell bladder cancer diagnosed by biopsy s/p BCG treatment that he finished roughly 2 years ago. He is to have a repeat cystoscope in April. He denies any gross hematuria. He stated for several weeks he has had scrotal pain that he describes as an electric shock and makes him feel as though he has to urinate. He denies dysuria. He said he had a UA last week that was negative but his urologist prescribed him Bactrim on Wednesday just as precautionary. He has not been taking this twice daily and tries to take at least 1 a day. He does endorse diarrhea x 1 day a couple days ago after starting the Bactrim, denies current diarrhea. Denies any bright red blood in stool. Patient also endorses a cough that comes and goes for roughly 2 to 3 weeks. He is also really concerned about a fever that occurs at nighttime and has come and gone for roughly 6 weeks. He noted it as high as 100.5 F. He endorses mild rhinorrhea and sore throat however nonconcerning regarding his other symptoms. He also endorses back aches and neck pain for roughly a week. He has no sick contacts. Patient is concerned with Lyme's disease; he has had testing many years ago that was negative. He has frequent tick bites but denies any bull's- eye rashes. He stated he did get tested for COVID and flu at [facility] that was negative. Patient does not use nicotine products or drink alcohol. He has no past history of previous VTE. He does not use oxygen at baseline. He still needs his evening medications; ordered on admission. He wishes to be full code. His is his POA. Admission Exam Per Admitting Provider The patient is awake, alert and oriented 3, well developed and well nourished, normocephalic and atraumatic, in no acute distress. Non-toxic appearing. HEENT- EOMI, mucous membranes moist. Hearing grossly intact. Heart-normal S1 and S2. No murmurs, rubs or gallops. Lungs-clear bilaterally, no respiratory distress, no accessory muscle use. Abdomen-normal bowel sounds and soft. No ascites noted. Non-tender. Extremities- no clubbing, cyanosis, or edema. Rheumatologic-normal range of motion. Psychiatric-normal affect. Discharge Exam General: 73yo male sitting up in bed, NAD, no family in room today HEENT: head atraumatic, normocephalic, mmm, trachea midline Resp: even/unlabored, no wheezing/rales, on room air CV: RRR, no significant m/r/g, no pitting edema, calves nontender GI: +BS, soft/slight distension but NONTENDER no hughes, no further hematuria reported MSK/Neuro: nonfocal, not confused, answering questions appropriately Psych: AOx3, cooperative with exam Discharge Plan Discharge Items Patient Disposition: Home - Self-Care Reason For Visit: CHEST PAIN, GERD, HEMATURIA Discharge Diagnosis: Chest pain, reflux, benzo withdrawal Condition on Discharge: Good Goals: You have been hospitalized for an acute medical problem. During your stay at [facility], we have made an effort to correct the problem that brought you to the hospital while keeping you as comfortable as possible. Medications were used to bring your condition under control and your discharge instructions will include directions for any medications you should take after leaving the hospital. Please make sure you see your Primary Care Provider as part of your follow up plan. Activity: As commented below Non-emergency contact: Primary Care Provider, Oil Tester, Meat Seafood Associate and Urologist Call non-emergency contact if: you have any medication questions, your symptoms worsen, your pain is not controlled, your pain is concerning for you and you have a fever Follow-up/Referrals: Jcarlos Mahoney PA-C [Physician Family Therapist] - 10/25/24 4:00 pm (Hospital follow up scheduled October 25 at 4:00) Clyde Padilla MD [Physician] - (Please call to schedule follow up) Jaden Carter DO [Primary Care Provider] - 10/18/24 11:00 am (Hospital follow up scheduled October 18 at 11:00) Martha Hidalgo Jr, MD [Physician] - (Please call to schedule follow up) Diet: Heart Healthy Addtl Attending Provider Instructions: You were hospitalized for chest pain/abdominal pain/possible GI etiology. Cardiology consulted and underwent cardiac cath which did not show any evidence for need for stent and recommended medical management, close follow up. You have been started on NORVASC (amlodipine) 5mg once daily to help with possible esophageal spasm as well as blood pressure control. This can be further increased as needed and your blood pressure has been improved/stable since starting this medication. GI was consulted and you underwent EGD was unremarkable. Despite this you have had improvement on medical therapy with protonix twice daily and with carafate four times daily before meals and have been continued at discharge. Carafate is for 2 weeks and protonix is for longer term and can follow up with primary care if any ongoing/worsening issues. As discussed, I wonder if stopping your alprazolam around the same time your developed symptoms and have resumed you at alprazolam 0.25mg once daily for now and should discuss titration off this medication with primary care given assisted use/15 years as you may need even slower taper off this medication than you were doing before and symptoms of withdrawal could have been contributing to your current presentation. I have sent new prescription for this for the next week and recommend discuss ongoing use/taper with primary care in follow up this upcoming week. I recommend at least one week of the 0.25mg daily and then can talk about decreasing to every other day with hopes to come off this medication. Let your doctor know if having any return of symptoms while titrating off this medication. You should have follow up with primary care, cardiology at discharge as well as gastroenterology as needed. We are working on arranging follow up with urology as well given blood in urine reported. Peripheral smear did not show any significant findings but given your history of bladder cancer it may be worthwhile for referral to hematology/oncology in follow up with primary care for further investigation. Please return to the ER with any worsening chest pain, shortness of breath, reflux, abdominal pain, or for any other symptoms concerning for you. It has been a pleasure being a part of the medical team providing for you while you have been in the hospital. Take care! Pending Studies at Discharge: No Stand-Alone Forms: My [facility] [employer] Odor Resistant Bedding, Smoking Cessation Medications and DC Order Prescriptions: New sucralfate 100 mg/mL Suspension 1 g PO QID 14 Days Qty: 560 0RF alprazolam 0.25 mg Tablet 0.25 mg PO QAM Qty: 14 0RF amlodipine [Norvasc] 5 mg Tablet 5 mg PO QAM Qty: 30 0RF Continued clopidogrel 75 mg tablet 75 mg PO QAM Qty: 90 3RF atorvastatin 80 mg tablet 80 mg PO HS Qty: 90 3RF metoprolol succinate 25 mg tablet extended release 24 hr 12.5 mg PO QAM Qty: 45 3RF nitroglycerin [Nitrostat] 0.4 mg tablet, sublingual 0.4 mg sublingual Q5M PRN (Reason: chest pain) Qty: 25 5RF Rx Instructions: do not exceed 3 doses per episode multivitamin Tablet 1 tab PO QAM magnesium 200 mg Tablet 400 mg PO QAM citalopram 20 mg Tablet 20 mg PO QAM cholecalciferol (vitamin D3) [Vitamin D3] 50 mcg (2,000 unit) Tablet 100 mcg PO DAILY Changed pantoprazole 40 mg Tablet,Delayed Release (Dr/Ec) 40 mg PO BID Qty: 60 0RF Discontinued famotidine [Pepcid] 20 mg tablet 20 mg PO BID Qty: 180 2RF sulfamethoxazole-trimethoprim [Bactrim DS] 800-160 mg tablet 1 tab PO BID 7 Days Qty: 14 0RF Discharge Orders: Discharge Order (Routine); Ordered 10/12/24 Ordered By: Fadumo Prince Admission Data Admit Date/Time: 10/09/24 16:17 Attending Provider: Fito Carmona Admit Provider: Donato Will Primary Care Provider: Jaden Carter Other Providers: Donato Will; Jorge Tavera; Martha Hidalgo Jr; Clyde Padilla Hospital Stay Data Consultations 10/08/24 02:13 ED Decision to Admit Stat 10/08/24 04:27 Consult Cardiology Routine Consult Gastroenterology Routine Consult Urology Routine Procedures Performed Operation Date: 10/11/24 16:30 Actual Procedures p Esophagogastroduodenoscopy - Martha Hidalgo Jr, MD Diagnostic Imagining Performed Chest CTA 10/07/24 22:33 Exam(s): CTA CHEST IV Amt: 120ml optiray 320 EXAM: CT Angiography Chest With Intravenous Contrast CLINICAL HISTORY: Reason for exam: PE. TECHNIQUE: Axial computed tomographic angiography images of the chest with intravenous contrast. CTDI is 26.35 mGy and DLP is 2203.85 mGy-cm. Automated exposure control was utilized for the study. A dose lowering technique was utilized adhering to the principles of ALARA. MIP reconstructed images were created and reviewed. COMPARISON: Chest x-ray from October 02, 2024 FINDINGS: Pulmonary arteries: Mild the pulmonary arterial tree is well opacified with contrast. No pulmonary embolism is identified. Aorta: The thoracic aorta is nondilated but mildly calcified. There is no aneurysm or dissection. Lungs: Lungs are well-inflated. No focal infiltrate or consolidation is seen. Pleural space: Unremarkable. No significant effusion. No pneumothorax. Heart: The heart is not enlarged. Moderate coronary calcification is present involving the LAD and right coronary. No pericardial effusion. Bones/joints: Mild degenerative changes throughout the spine. No acute fracture or destructive bone lesion is seen. No dislocation. Soft tissues: Unremarkable. Lymph nodes: Mild hilar lymphadenopathy bilaterally, greater on the right measuring 1.4 cm short axis diameter. IMPRESSION: 1. Mild hilar lymphadenopathy bilaterally, greater on the right measuring 1.4 cm short axis diameter. This is nonspecific. 2. Mild the pulmonary arterial tree is well opacified with contrast. No pulmonary embolism is identified. 3. The thoracic aorta is nondilated but mildly calcified. There is no aneurysm or dissection. 4. The heart is not enlarged. Moderate coronary calcification is present involving the LAD and right coronary. No pericardial effusion. 5. Lungs are well-inflated. No focal infiltrate or consolidation is seen. Electronically signed by: Venancio Dominique MD 10/08/24 01:13 AM Scrotum Ultrasound 10/07/24 22:33 Exam(s): US SCROTAL EXAM: US Scrotum CLINICAL HISTORY: Reason for exam: left test. pain. TECHNIQUE: Real-time ultrasound of the scrotum with color Doppler and image documentation. COMPARISON: No relevant prior studies available. FINDINGS: Right testicle: The right testicle measures 3.5 x 2.3 x 5.6 cm. Doppler blood flow is normal. No torsion. Left testicle: The left testicle measures 3 x 2.7 x 5.1 cm. Doppler blood flow is normal. There is a small, slightly complex left hydrocele. No torsion. Epididymides: Unremarkable. Scrotum: See above. IMPRESSION: The left testicle measures 3 x 2.7 x 5.1 cm. Doppler blood flow is normal. There is a small, slightly complex left hydrocele. No evidence of torsion. Electronically signed by: Venancio Dominique MD 10/08/24 01:11 AM Abdomen/Pelvis CT 10/07/24 22:34 Exam(s): CT ABDOMEN + PELVIS With Contrast IV Amt: 120 ml optiray 320 EXAM: CT Abdomen and Pelvis With Intravenous Contrast CLINICAL HISTORY: Reason for exam: mid abd pain. TECHNIQUE: Axial computed tomography images of the abdomen and pelvis with intravenous contrast. CTDI is 26.35 mGy and DLP is 2203.85 mGy-cm. Automated exposure control was utilized for the study. A dose lowering technique was utilized adhering to the principles of ALARA. CONTRAST: Patient received 120 ml optiray 320 of IV contrast COMPARISON: No relevant prior studies available. FINDINGS: Lung bases: Unremarkable. No mass. No consolidation. ABDOMEN: Liver: The liver is borderline enlarged measuring 18 cm craniocaudad. No focal liver lesion is seen. Gallbladder and bile ducts: Unremarkable. No calcified stones. No ductal dilation. Pancreas: Unremarkable. No mass. No ductal dilation. Spleen: Unremarkable. No splenomegaly. Adrenals: Unremarkable. No mass. Kidneys and ureters: Kidneys enhance symmetrically with contrast. There is mild left hydronephrosis and hydroureter down to the level of the urinary bladder. No ureteral calculus is seen. There is slight enhancement of the wall of the distal ureters suggesting ascending urinary tract infection. Stomach and bowel: See below. PELVIS: Appendix: The appendix is normal. Bowel loops are nondilated. There is mild diverticulosis of the sigmoid colon without evidence of acute diverticulitis per no acute inflammatory changes are seen involving the bowel. Bladder: The urinary bladder is completely decompressed but otherwise unremarkable. Reproductive: Unremarkable as visualized. ABDOMEN and PELVIS: Intraperitoneal space: Unremarkable. No free air. No significant fluid collection. Bones/joints: Moderate multilevel degenerative changes throughout the spine. No acute fracture or subluxation is seen. Soft tissues: Unremarkable. Vasculature: Unremarkable. No abdominal aortic aneurysm. Lymph nodes: There is a single enlarged retroperitoneal lymph node adjacent to the right kidney measuring 14 mm. This is nonspecific. No other lymphadenopathy or mass is identified. IMPRESSION: 1. The appendix is normal. Bowel loops are nondilated. There is mild diverticulosis of the sigmoid colon without evidence of acute diverticulitis. No acute inflammatory changes are seen involving the bowel. 2. Kidneys enhance symmetrically with contrast. There is mild left hydronephrosis and hydroureter down to the level of the urinary bladder. No ureteral calculus is seen. There is slight enhancement of the wall of the distal ureters suggesting ascending urinary tract infection. 3. There is a single enlarged retroperitoneal lymph node adjacent to the right kidney measuring 14 mm. This is nonspecific. No other lymphadenopathy or mass is identified. Electronically signed by: Venancio Dominique MD 10/08/24 01:15 AM Coronary angiography findings 10/09/2024, Dr Swanson EGD-yzgvt-yvjeupp vessel trifurcating into LAD, circumflex, and ramus. No more than mild luminal irregularities. QAR-gikta-frwmbxi and transapical vessel. Ostially there is 30% stenosis. Proximal segment has diffuse mild calcification and up to 40 to 50% stenosis. Mid segment has an old stent or calcification. No significant stenosis. Distal vessel has scattered mild plaques of less than 20%. There is a small second diagonal as well as a small third diagonal. The first diagonal is medium to large without significant disease. The ostium of the septal branch has 70% narrowing. This may be jailed from prior stent. MBy-hwbbg-pxhdagk nondominant vessel. Travels in the AV groove giving a small to medium caliber OM 2. Terminates with this vessel that has 80% stenosis. This vessel is too small for PCI. OM1/ramus-this vessel arises in the earliest part of or shares the ostium with the circumflex. It is large in caliber and bifurcates. No angiographically significant disease. Circumflex also provides atrial branch. RCA-this is large caliber and dominant. Proximal ballesteros's crook shaped vessel. At that level there is a 50 to 70% hazy lesion with some calcification. Then there is diffuse mild disease in the proximal segment up to 30 to 40% just before the large RV marginal branch. The the mid RCA has a previous stent which is patent. 20% in-stent restenosis followed by a 20% lesion before it transitions to the distal RCA. Distally, there is a long in-stent restenosis of up to 30 to 40%. After stent there is calcified 50% stenosis. RCA gives a large PDA that has a single branch and a large posterolateral which has multiple branches. Posterolateral has diffuse luminal irregularities. The PDA has an ostial 50 to 60% stenosis and then a proximal 50 to 60% stenosis. MAK-3 flow. IFR of RCA (PDA unable to be evaluated)-0.98, 0.98, 0.97. Therefore, the RCA does not he have hemodynamically significant stenosis. No evidence of dissection or perforation post IFR analysis MAK-3 flow post IFR analysis Summary: 1. Patent prior stents with mild to moderate in-stent restenosis. 2. Mild to moderate nonocclusive coronary disease in the large epicardial vessels. Severe branch vessel disease (septal, OM 2 which are not appropriate for PCI). 3. IFR analysis of the worst appearing lesions of the RCA demonstrate that this is not hemodynamically significant. This is despite a series of lesions. 4. Recommend medical management. Titration of antianginal regimen. Pending Results Patient Have Any Pending Studies at Discharge: No Discharge Instructions Given to Patient (Per Discharging Provider) You were hospitalized for chest pain/abdominal pain/possible GI etiology. Cardiology consulted and underwent cardiac cath which did not show any evidence for need for stent and recommended medical management, close follow up. You have been started on NORVASC (amlodipine) 5mg once daily to help with possible esophageal spasm as well as blood pressure control. This can be further increased as needed and your blood pressure has been improved/stable since starting this medication. GI was consulted and you underwent EGD was unremarkable. Despite this you have had improvement on medical therapy with protonix twice daily and with carafate four times daily before meals and have been continued at discharge. Carafate is for 2 weeks and protonix is for longer term and can follow up with primary care if any ongoing/worsening issues. As discussed, I wonder if stopping your alprazolam around the same time your developed symptoms and have resumed you at alprazolam 0.25mg once daily for now and should discuss titration off this medication with primary care given assisted use/15 years as you may need even slower taper off this medication than you were doing before and symptoms of withdrawal could have been contributing to your current presentation. I have sent new prescription for this for the next week and recommend discuss ongoing use/taper with primary care in follow up this upcoming week. I recommend at least one week of the 0.25mg daily and then can talk about decreasing to every other day with hopes to come off this medication. Let your doctor know if having any return of symptoms while titrating off this medication. You should have follow up with primary care, cardiology at discharge as well as gastroenterology as needed. We are working on arranging follow up with urology as well given blood in urine reported. Peripheral smear did not show any significant findings but given your history of bladder cancer it may be worthwhile for referral to hematology/oncology in follow up with primary care for further investigation. Please return to the ER with any worsening chest pain, shortness of breath, reflux, abdominal pain, or for any other symptoms concerning for you. It has been a pleasure being a part of the medical team providing for you while you have been in the hospital. Take care! Supervising Physician Co-Signing Physician Notes The patient was not seen by me. The chart was reviewed. Case discussed with OPHELIA Candelaria. Agree with assessment and plan Total Time Total Time Spent Total Time Spent (In Minutes): 60 Coding Level of Care Code 69902 INP/OBS DISCH >30 MIN Diagnoses Abdominal pain R10.9 GERD (gastroesophageal reflux disease) K21.9 Chest pain R07.9 Chest pain type: unspecified Exertional dyspnea R06.09 Hematuria R31.9 Hydronephrosis N13.30 Fever and chills R50.9
[2024-10-12 10:33] VITALS: RESP 18
[2024-10-12 16:01] VITALS: BP 118/79
== END 2024-10-12 16:47 | disposition home or self-care (01) | DRG 392 ==
LOC: 2N 22:11 → ED 22:11 → SUATTDRO 10-08 02:48 → 2N 10-08 04:01 → 2S 10-09 13:53 → SUATTDRO 10-09 16:17
PROC: CLB.CCO (2024-10-09 10:00)